=== PATIENT | male | born 1990 | race Two or more races ===

== ENCOUNTER 2019-08-14 11:30 | Inpatient (IN) | payer OTHER ==
--- NOTE | 2019-08-14 12:43 | BHS.RME ---
Substance Use & Tx History - Substance Use History Heroin Substance amount: 7-8 bags Frequency of use: Daily Substance route: Inhalation (ex: sniffing or snorting) Date of Last Use: 08/13/19 (First use age 22 y. OD x 1 3 mos ago, Has narcan at home) Cocaine- Powder Substance amount: $40 Frequency of use: More than 3 times per week Substance route: Inhalation (ex: sniffing or snorting), Smoking Date of Last Use: 08/12/19 (First use age 18 y) Nicotine Substance amount: 1/2 pack Frequency of use: Daily Substance route: Smoking Date of Last Use: 08/14/19 (First use age 14 y) - Last Treatment Date of last treatment: June 2019 [facility] Treatment type: Substance Use Disorder (JOSE G) Physical/Psych/Mental Status - Behavior General Behavior: Increased activity (restlessness, agitation) Eye Contact: Normal - Cooperativeness Cooperativeness: Cooperative - Thinking Thought Processes: Tight Thought content: Future oriented - Physical Health Problems Is patient presently having any pain?: No Does patient presently have any injuries (include location): No Does patient currently have a fever: No COWS - Scale Resting Pulse: 0= [place] 80 or Below Sweatin=Flushed/Facial Moisture Restless Observation: 1= Difficult to Sit Still Pupil Size: 1= Pupils >than Normal Bone or Joint Aches: 1= Mild Discomfort Runny Nose/ Eye Tearin= Nasal Congestion GI Upset > 30mins: 1= Stomach Cramp Tremor Observation: 0= None Yawning Observation: 0= None Anxiety or Irritability: 0= None Goose Flesh Skin: 0=Smooth Skin COWS Score: 7
--- NOTE | 2019-08-14 14:07 | HP ---
COWS - Scale Resting Pulse: 0= [place] 80 or Below Sweatin=Flushed/Facial Moisture Restless Observation: 1= Difficult to Sit Still Pupil Size: 1= Pupils >than Normal Bone or Joint Aches: 2= Severe Diffuse Aches Runny Nose/ Eye Tearin= Runny Nose/Eyes GI Upset > 30mins: 1= Stomach Cramp Tremor Observation: 0= None Yawning Observation: 1= 1-2x During Session Anxiety or Irritability: 2=Irritable/Anxious Goose Flesh Skin: 0=Smooth Skin COWS Score: 12 CIWA Score - Admission Criteria OASAS Guidelines: Admission for Medically Managed Detox: Requires at least one of the followin. CIWA greater than 12 2. Seizures within the past 24 hours 3. Delirium tremens within the past 24 hours 4. Hallucinations within the past 24 hours 5. Acute intervention needed for co occurring medical disorder 6. Acute intervention needed for co occurring psychiatric disorder 7. Severe withdrawal that cannot be handled at a lower level of care (continued vomiting, continued diarrhea, abnormal vital signs) requiring intravenous medication and/or fluids 8. Admitting History and Physical - Primary Care Physician PCP: Dr. Gaurav Finch - Admission Chief Complaint: I am here for detox and try to get clean. I am tired and want to stop History of Present Illness: Pt is a 29yr old male first time in our facility coming in for detox for treatment. History Source: Patient Limitations to Obtaining History: No Limitations - Past Surgical History Past Surgical History: Yes: None - Smoking History Smoking history: Current every day smoker Have you smoked in the past 12 months: Yes Aproximately how many cigarettes per day: 10 - Alcohol/Substance Use Hx Alcohol Use: No History of Substance Use: reports: Cocaine, Heroin Date of Last Use: 08/13/19 - Social History Usual Living Arrangement: Yes: With Parent Do you think of yourself as: Straight/Heterosexual ADL: Independent History of Recent Travel: No Admission ROS BHS - HPI Chief Complaint: I am here for detox and try to get clean. I am tired and want to stop Allergies/Adverse Reactions: Allergies Allergy/AdvReac Type Severity Reaction Status Date / Time No Known Allergies Allergy Verified 08/14/19 14:02 History of Present Illness: Pt is a 29yr old male with a history of heroin and cocaine dependence seeking detox for treatment. Exam Limitations: No Limitations - Ebola screening Have you traveled outside of the country in the last 21 days: No Have you had contact with anyone from an Ebola affected area: No Have you been sick,other than usual withdrawal symptoms: No Do you have a fever: No - Review of Systems Constitutional: Chills, Diaphoresis, Loss of Appetite, Night Sweats, Changes in sleep, Unintentional Wgt. Loss EENT: reports: Nose Congestion Respiratory: reports: No Symptoms reported Cardiac: reports: No Symptoms Reported GI: reports: Poor Appetite, Poor Fluid Intake : reports: No Symptoms Reported Musculoskeletal: reports: Back Pain, Muscle Pain Integumentary: reports: Sweating Neuro: reports: Tingling, Tremors Endocrine: reports: Excessive Sweating, Flushing, Intolerance to Cold, Intolerance to Heat Hematology: reports: No Symptoms Reported Psychiatric: reports: Judgement Intact, Mood/Affect Appropiate, Orientated x3, Agitated, Anxious Other Systems: Reviewed and Negative Patient History - Patient Medical History Hx Anemia: No Hx Asthma: No Hx Chronic Obstructive Pulmonary Disease (COPD): No Hx Cancer: No Hx Cardiac Disorders: No Hx Congestive Heart Failure: No Hx Hypertension: No Hx Hypercholesterolemia: No Hx Pacemaker: No HX Cerebrovascular Accident: No Hx Seizures: No Hx Dementia: No Hx Diabetes: No Hx Gastrointestinal Disorders: No Hx Liver Disease: No Hx Genitourinary Disorders: No Hx Sexually Transmitted Disorders: No Hx Renal Disease (ESRD): No Hx Thyroid Disease: No Hx Human Immunodeficiency Virus (HIV): No (pt states he is negative) Hx Hepatitis C: No Hx Depression: No Hx Suicide Attempt: No (pt denies) Hx Bipolar Disorder: No Hx Schizophrenia: No - Patient Surgical History Hx Orthopedic Surgery: Yes (metal plate to right hand 2003) - PPD History Previous Implant?: Yes Documented Results: Negative w/o proof Implanted On Prior [facility] Admission?: No PPD to be Administered?: Yes - Reproductive History Patient is a Female of Child Bearing Age (11 -55 yrs old): No - Smoking Cessation Smoking history: Current every day smoker Have you smoked in the past 12 months: Yes Aproximately how many cigarettes per day: 10 Hx Chewing Tobacco Use: No Initiated information on smoking cessation: Yes 'Breaking Loose' booklet given: 08/14/19 - Substance & Tx. History Hx Alcohol Use: No Hx Substance Use: Yes Substance Use Type: Cocaine, Heroin Hx Substance Use Treatment: Yes ([facility] 1month ago) - Substances abused Heroin Substance route: Inhalation Frequency: Daily Amount used: 8 bags Age of first use: 22 Date of last use: 08/13/19 Cocaine Substance route: Inhalation Frequency: Daily Amount used: 50 dollars Age of first use: 18 Date of last use: 08/12/19 Admission Physical Exam [facility] - Physical General Appearance: Yes: Appropriately Dressed, Moderate Distress, Tremorous, Irritable, Sweating, Anxious HEENTM: Yes: Normal Voice, Nasal Congestion, Rhinorrhea Respiratory: Yes: Lungs Clear, Normal Breath Sounds, No Respiratory Distress Neck: Yes: No masses,lesions,Nodules Breast: Yes: Within Normal Limits Cardiology: Yes: Within Normal Limits, Regular Rhythm, Regular Rate, S1, S2 Abdominal: Yes: Normal Bowel Sounds, Non Tender Genitourinary: Yes: Within Normal Limits Back: Yes: Normal Inspection Musculoskeletal: Yes: full range of Motion, Back pain Extremities: Yes: Normal Capillary Refill, Normal Inspection, Non-Tender, Tremors Neurological: Yes: Fully Oriented, Alert, Normal Response Integumentary: Yes: Normal Color - Diagnostic (1) Opioid dependence with withdrawal Current Visit: Yes Status: Chronic (2) Nicotine dependence Current Visit: Yes Status: Chronic Qualifiers: Nicotine product type: cigarettes Substance use status: uncomplicated Qualified Code(s): F17.210 - Nicotine dependence, cigarettes, uncomplicated (3) Cocaine dependence Current Visit: Yes Status: Chronic Qualifiers: Substance use status: uncomplicated Qualified Code(s): F14.20 - Cocaine dependence, uncomplicated Cleared for Admission [facility] - Detox or Rehab [facility] Level of Care: Medically Managed Detox Regimen/Protocol: Methadone Claeared for Rehab Admission: No Breathalyzer - Breathalyzer Breathalyzer: 0 Urine Drug Screen - Test Device Lot number: [id number] Expiration date: 10/18/20 - Control Is test valid?: Yes - Results Drug screen NEGATIVE: No Urine drug screen results: JEFFERY-Cocaine, FEN-Fentanyl, MOP-Opiates, MTD-Methadone Inpatient Rehab Admission - Rehab Decision to Admit Inpatient rehab admission?: No
[2019-08-14] MEDS ORDERED: METHOCARBAMOL 500 MG TABLET PO PRN (14:20)
[2019-08-14] MEDS ORDERED: MAGNESIUM HYDROX 2400MG/30ML ORAL SUSPENSION 30 ML CUP PO PRN (14:20)
[2019-08-14] MEDS ORDERED: IBUPROFEN 400 MG TABLET (FP) PO PRN (14:20)
[2019-08-14] MEDS ORDERED: P-EPHED 60MG/TRIPROLIDI 2.5MG TABLET PO PRN (14:20)
[2019-08-14] MEDS ORDERED: MENTHOL/PHENOL 1 EACH UD MM PRN (14:20)
[2019-08-14] MEDS ORDERED: MAGNESIUM CITRATE 300 ML BOTTLE PO PRN (14:20)
[2019-08-14] MEDS ORDERED: ONDANSETRON *ODT* 4 MG TABLET SL PRN (14:20)
[2019-08-14] MEDS ORDERED: METHADONE HCL 10 MG TABLET (FOR DETOX USE ONLY) PO ONE (14:20)
[2019-08-14] MEDS ORDERED: ACETAMINOPHEN 325 MG TABLET (FP) PO PRN ×2 (14:20)
[2019-08-14] MEDS ORDERED: MAG HYDROX/AL HYDROX/SIMETH 30 ML UNIT-DOSE CUP PO PRN (14:20)
[2019-08-14] MEDS ORDERED: cloNIDine HCL 0.1 MG TABLET PO PRN (14:20)
[2019-08-14] MEDS ORDERED: hydrOXYzine PAMOATE 25 MG CAPSULE (FP) PO PRN (14:20)
[2019-08-14] MEDS ORDERED: NICOTINE POLACRILEX 2 MG GUM BUC PRN (14:20)
[2019-08-14] MEDS ORDERED: BISMUTH SUBSALICYLATE 262 MG/15 ML BTL PO PRN (14:29)
[2019-08-14 17:03] LABS: HEMATOCRIT 40.1 % (35.4-49); HEMOGLOBIN 13.1 GM/dL (11.7-16.9); MCH 28.1 pg (25.7-33.7); MCHC 32.8 g/dl (32.0-35.9); MEAN CELL VOLUME 85.6 fl (80-96); MEAN PLT VOLUME 11.2 fl (7.5-11.1); PLATELET COUNT 238 K/MM3 (134-434); RBC 4.68 M/mm3 (4.00-5.60); RDW 14.2 % (11.9-15.9); WHITE BLOOD COUNT 6.8 K/mm3 (4.0-10.0)
[2019-08-14 17:17] LABS: ALBUMIN 3.8 g/dl (3.4-5.0); BILIRUBIN,TOTAL 0.6 mg/dL (0.2-1); BLOOD UREA NITROGEN 15.3 mg/dL (7-18); CALCIUM 9.1 mg/dL (8.5-10.1); CREATININE 0.8 mg/dL (0.55-1.3); POTASSIUM 4.2 mmol/L (3.5-5.1); TOT PROT 7.5 g/dl (6.4-8.2)
[2019-08-14] MEDS: THIAMINE HCL 100 MG TABLET (FP) PO SCH (22:21)
[2019-08-14] MEDS: MELATONIN 5 MG TABLETS PO SCH ×3 (22:21→22:38)
[2019-08-15] MEDS ORDERED: METHADONE HCL 10 MG TABLET (FOR DETOX USE ONLY) ONE (08:37)
[2019-08-15] MEDS ORDERED: METHADONE HCL 5 MG TABLET (FOR DETOX USE ONLY) ONE (08:38)
[2019-08-15] MEDS ORDERED: METHADONE (DETOX) 20 MG, METHADONE (DETOX) 5 MG PO ONE (10:00)
[2019-08-15] MEDS: PRENATAL VITAMINS W/ FOLIC ACID TABLET (FP) PO SCH (10:22)
--- NOTE | 2019-08-15 10:43 | PN ---
S COWS - Scale Resting Pulse: 0= [place] 80 or Below Sweatin= Beads of Sweat on Face Restless Observation: 1= Difficult to Sit Still Pupil Size: 0= Normal to Room Light Bone or Joint Aches: 2= Severe Diffuse Aches Runny Nose/ Eye Tearin= None GI Upset > 30mins: 0= None Tremor Observation of Outstretched Hands: 0= None Yawning Observation: 1= 1-2x During Session Anxiety or Irritability: 2=Irritable/Anxious Goose Flesh Skin: 0=Smooth Skin COWS Score: 9 S Progress Note (SOAP) Subjective: c/o anxiety, irritability, sweats, and muscle aches. Objective: 08/15/19 10:42 Vital Signs 08/15/19 08/15/19 08/15/19 03:30 06:09 09:08 Temperature 97.5 F L 97.7 F Pulse Rate 60 76 Respiratory 18 18 18 Rate Blood Pressure 104/57 L 100/51 L O2 Sat by Pulse 98 Oximetry (%) Laboratory Last Values WBC 6.8 K/mm3 (4.0-10.0) 08/14/19 14:35 RBC 4.68 M/mm3 (4.00-5.60) 08/14/19 14:35 Hgb 13.1 GM/dL (11.7-16.9) 08/14/19 14:35 Hct 40.1 % (35.4-49) 08/14/19 14:35 MCV 85.6 fl (80-96) 08/14/19 14:35 MCH 28.1 pg (25.7-33.7) 08/14/19 14:35 MCHC 32.8 g/dl (32.0-35.9) 08/14/19 14:35 RDW 14.2 % (11.9-15.9) 08/14/19 14:35 Plt Count 238 K/MM3 (134-434) 08/14/19 14:35 MPV 11.2 fl (7.5-11.1) H 08/14/19 14:35 Sodium 136 mmol/L (136-145) 08/14/19 14:35 Potassium 4.2 mmol/L (3.5-5.1) 08/14/19 14:35 Chloride 100 mmol/L (98-107) 08/14/19 14:35 Carbon Dioxide 29 mmol/L (21-32) 08/14/19 14:35 Anion Gap 7 MMOL/L (8-16) L 08/14/19 14:35 BUN 15.3 mg/dL (7-18) 08/14/19 14:35 Creatinine 0.8 mg/dL (0.55-1.3) 08/14/19 14:35 Est GFR (CKD-EPI)AfAm 137.96 08/14/19 14:35 Est GFR (CKD-EPI)NonAf 119.03 08/14/19 14:35 Random Glucose 85 mg/dL (74-106) 08/14/19 14:35 Calcium 9.1 mg/dL (8.5-10.1) 08/14/19 14:35 Total Bilirubin 0.6 mg/dL (0.2-1) 08/14/19 14:35 AST 17 U/L (15-37) 08/14/19 14:35 ALT 22 U/L (13-61) 08/14/19 14:35 Alkaline Phosphatase 73 U/L (45-117) 08/14/19 14:35 Total Protein 7.5 g/dl (6.4-8.2) 08/14/19 14:35 Albumin 3.8 g/dl (3.4-5.0) 08/14/19 14:35 Syphilis Serology Non-reactive (NONREACTIVE) 08/14/19 14:35 Labs noted. Assessment: 08/15/19 10:42 AOX3, in no acute respiratory distress. Full ROM, ambulating in the unit. Withdrawal symptoms. Plan: continue detox. Increase hydration.
--- NOTE | 2019-08-15 14:02 | EKG ---
Test Reason : Blood Pressure : / mmHG Vent. Rate : 062 BPM Atrial Rate : 062 BPM P-R Int : 150 ms QRS Dur : 088 ms QT Int : 406 ms P-R-T Axes : 005 095 030 degrees QTc Int : 412 ms NORMAL SINUS RHYTHM RIGHTWARD AXIS BORDERLINE ECG NO PREVIOUS ECGS AVAILABLE Confirmed by MD TERE, KRISSY ([id number]) on 08/15/2019 2:02:22 PM Referred By: Confirmed By:KRISSY CARRANZA MD
[2019-08-15] MEDS: THIAMINE HCL 100 MG TABLET (FP) PO SCH ×2 (22:10→22:27)
[2019-08-15] MEDS: MELATONIN 5 MG TABLETS PO SCH ×2 (22:10→22:27)
[2019-08-15] MEDS: diazePAM 5 MG TABLET PO PRN (23:09)
--- NOTE | 2019-08-16 08:58 | PN ---
BHS COWS - Scale Resting Pulse: 1= [place] 81-100 Sweatin= Chills/Flushing Restless Observation: 0= Sits Still Pupil Size: 1= Pupils >than Normal Bone or Joint Aches: 1= Mild Discomfort Runny Nose/ Eye Tearin= None GI Upset > 30mins: 0= None Tremor Observation of Outstretched Hands: 1= Tremor [place], Not Seen Yawning Observation: 0= None Anxiety or Irritability: 1=Feels Anxious/Irritable Goose Flesh Skin: 0=Smooth Skin COWS Score: 6 BHS Progress Note (SOAP) Subjective: 29 years old male admitted on 08/14/19 for opiate withdrawal sx management treating with methadone detox regiment feeling ok today discussing medication assisted treatment program for opiate recovery as well as picking up narcan from pharmacy upon discharge Objective: 08/16/19 08:58 Vital Signs - 24 hr 08/15/19 08/15/19 08/15/19 09:08 12:40 16:41 Temperature 97.7 F 96.8 F L 97.8 F Pulse Rate 76 71 65 Respiratory 18 18 18 Rate Blood Pressure 100/51 L 116/69 108/66 O2 Sat by Pulse 98 Oximetry (%) 08/15/19 08/16/19 08/16/19 20:50 00:30 03:30 Temperature 97.8 F Pulse Rate 70 Respiratory 16 18 18 Rate Blood Pressure 103/63 O2 Sat by Pulse 99 Oximetry (%) 08/16/19 06:18 Temperature 97.7 F Pulse Rate 83 Respiratory 18 Rate Blood Pressure 98/52 L O2 Sat by Pulse 97 Oximetry (%) vital signs noted low bp increase ensure to tid daily Laboratory Tests 08/14/19 08/14/19 08/14/19 14:35 14:35 14:35 WBC 6.8 RBC 4.68 Hgb 13.1 Hct 40.1 MCV 85.6 MCH 28.1 MCHC 32.8 RDW 14.2 Plt Count 238 MPV 11.2 H Sodium 136 Potassium 4.2 Chloride 100 Carbon Dioxide 29 Anion Gap 7 L BUN 15.3 Creatinine 0.8 Est GFR (CKD-EPI)AfAm 137.96 Est GFR (CKD-EPI)NonAf 119.03 Random Glucose 85 Calcium 9.1 Total Bilirubin 0.6 AST 17 ALT 22 Alkaline Phosphatase 73 Total Protein 7.5 Albumin 3.8 Syphilis Serology Non-reactive COVID-19 (JUANI) 08/14/19 15:30 WBC RBC Hgb Hct MCV MCH MCHC RDW Plt Count MPV Sodium Potassium Chloride Carbon Dioxide Anion Gap BUN Creatinine Est GFR (CKD-EPI)AfAm Est GFR (CKD-EPI)NonAf Random Glucose Calcium Total Bilirubin AST ALT Alkaline Phosphatase Total Protein Albumin Syphilis Serology COVID-19 (JUANI) Not detected lab noted Assessment: 08/16/19 08:59 opiate withdrawal 08/16/19 08:59 nicotine replacement as cigarettes cessation strategy Plan: methadone detox regiment understanding the consequences of nicotine
[2019-08-16] MEDS ORDERED: METHADONE HCL 10 MG TABLET (FOR DETOX USE ONLY) PO ONE (10:00)
[2019-08-16] MEDS: PRENATAL VITAMINS W/ FOLIC ACID TABLET (FP) PO SCH (10:08)
[2019-08-16] MEDS: diazePAM 5 MG TABLET PO PRN (13:06)
[2019-08-16] MEDS: MELATONIN 5 MG TABLETS PO SCH (22:22)
[2019-08-16] MEDS: THIAMINE HCL 100 MG TABLET (FP) PO SCH (22:22)
[2019-08-17] MEDS: diazePAM 5 MG TABLET PO PRN ×2 (06:37→13:54)
[2019-08-17] MEDS ORDERED: METHADONE HCL 5 MG TABLET (FOR DETOX USE ONLY) ONE (08:55)
[2019-08-17] MEDS ORDERED: METHADONE HCL 10 MG TABLET (FOR DETOX USE ONLY) ONE (08:55)
[2019-08-17] MEDS ORDERED: METHADONE (DETOX) 10 MG, METHADONE (DETOX) 5 MG PO ONE (10:00)
[2019-08-17] MEDS: PRENATAL VITAMINS W/ FOLIC ACID TABLET (FP) PO SCH (10:04)
--- NOTE | 2019-08-17 10:47 | PN ---
S COWS - Scale Resting Pulse: 0= [place] 80 or Below Sweatin= No chills or Flushing Restless Observation: 1= Difficult to Sit Still Pupil Size: 1= Pupils >than Normal Bone or Joint Aches: 2= Severe Diffuse Aches Runny Nose/ Eye Tearin= Nasal Congestion GI Upset > 30mins: 1= Stomach Cramp Tremor Observation of Outstretched Hands: 2= Slight Tremor Visible Yawning Observation: 1= 1-2x During Session Anxiety or Irritability: 2=Irritable/Anxious Goose Flesh Skin: 0=Smooth Skin COWS Score: 11 [facility] Progress Note (SOAP) Subjective: alert,irritable,anxious,interrupted sleep,pain in the body and back,nausea Objective: 08/17/19 10:49 Vital Signs Temperature 97.5 F L 08/17/19 08:52 Pulse Rate 75 08/17/19 08:52 Respiratory Rate 16 08/17/19 08:52 Blood Pressure 98/59 L 08/17/19 08:52 O2 Sat by Pulse Oximetry (%) 99 08/17/19 06:01 Laboratory Last Values WBC 6.8 K/mm3 (4.0-10.0) 08/14/19 14:35 RBC 4.68 M/mm3 (4.00-5.60) 08/14/19 14:35 Hgb 13.1 GM/dL (11.7-16.9) 08/14/19 14:35 Hct 40.1 % (35.4-49) 08/14/19 14:35 MCV 85.6 fl (80-96) 08/14/19 14:35 MCH 28.1 pg (25.7-33.7) 08/14/19 14:35 MCHC 32.8 g/dl (32.0-35.9) 08/14/19 14:35 RDW 14.2 % (11.9-15.9) 08/14/19 14:35 Plt Count 238 K/MM3 (134-434) 08/14/19 14:35 MPV 11.2 fl (7.5-11.1) H 08/14/19 14:35 Sodium 136 mmol/L (136-145) 08/14/19 14:35 Potassium 4.2 mmol/L (3.5-5.1) 08/14/19 14:35 Chloride 100 mmol/L (98-107) 08/14/19 14:35 Carbon Dioxide 29 mmol/L (21-32) 08/14/19 14:35 Anion Gap 7 MMOL/L (8-16) L 08/14/19 14:35 BUN 15.3 mg/dL (7-18) 08/14/19 14:35 Creatinine 0.8 mg/dL (0.55-1.3) 08/14/19 14:35 Est GFR (CKD-EPI)AfAm 137.96 08/14/19 14:35 Est GFR (CKD-EPI)NonAf 119.03 08/14/19 14:35 Random Glucose 85 mg/dL (74-106) 08/14/19 14:35 Calcium 9.1 mg/dL (8.5-10.1) 08/14/19 14:35 Total Bilirubin 0.6 mg/dL (0.2-1) 08/14/19 14:35 AST 17 U/L (15-37) 08/14/19 14:35 ALT 22 U/L (13-61) 08/14/19 14:35 Alkaline Phosphatase 73 U/L (45-117) 08/14/19 14:35 Total Protein 7.5 g/dl (6.4-8.2) 08/14/19 14:35 Albumin 3.8 g/dl (3.4-5.0) 08/14/19 14:35 Syphilis Serology Non-reactive (NONREACTIVE) 08/14/19 14:35 COVID-19 (JUANI) Not detected 08/14/19 15:30 Assessment: 08/17/19 10:49 withdrawal signs and symptom Plan: continue detox methadone regimen
[2019-08-17] MEDS: THIAMINE HCL 100 MG TABLET (FP) PO SCH (21:31)
[2019-08-17] MEDS: MELATONIN 5 MG TABLETS PO SCH (21:31)
[2019-08-18] MEDS: PRENATAL VITAMINS W/ FOLIC ACID TABLET (FP) PO SCH (09:58)
[2019-08-18] MEDS ORDERED: METHADONE HCL 10 MG TABLET (FOR DETOX USE ONLY) PO ONE (10:00)
--- NOTE | 2019-08-18 10:15 | PN ---
BHS COWS - Scale Resting Pulse: 0= [place] 80 or Below Sweatin= No chills or Flushing Restless Observation: 0= Sits Still Pupil Size: 0= Normal to Room Light Bone or Joint Aches: 1= Mild Discomfort Runny Nose/ Eye Tearin= Nasal Congestion GI Upset > 30mins: 1= Stomach Cramp Tremor Observation of Outstretched Hands: 1= Tremor [place], Not Seen Yawning Observation: 0= None Anxiety or Irritability: 2=Irritable/Anxious Goose Flesh Skin: 0=Smooth Skin COWS Score: 6 BHS Progress Note (SOAP) Subjective: alert,irritable,anxious,interrupted sleep,pain in the body Objective: 08/18/19 10:14 Vital Signs Temperature 96.2 F L 08/18/19 08:35 Pulse Rate 76 08/18/19 08:35 Respiratory Rate 18 08/18/19 08:35 Blood Pressure 105/61 08/18/19 08:35 O2 Sat by Pulse Oximetry (%) 96 08/18/19 05:59 Assessment: 08/18/19 10:14 withdrawal symptom Plan: continue detox methadone regimen,discharge in am
[2019-08-18 16:56] VITALS: BP 114/70; PULSE 75; TEMP 97.1
--- NOTE | 2019-08-18 18:53 | DS ---
[facility] Detox Discharge Summary Admission Date: 08/14/19 - History Additional Comments: pt insists on leaving today , states he has a ride to pick him up from [place] and go to [place] . Planning to go to [facility] after care . States he is not interested in completing detox , has Methadone 5 mg scheduled for a.m. Pt was educated about risks of leaving AMA including OD / . reports he has Narcan at home and knows how to use it . States he has his own PCP . - Physical Exam Results Vital Signs: Vital Signs Temperature 97.1 F L 08/18/19 16:28 Pulse Rate 75 08/18/19 16:28 Respiratory Rate 18 08/18/19 16:28 Blood Pressure 114/70 08/18/19 16:28 O2 Sat by Pulse Oximetry (%) 98 08/18/19 12:36 - Medication Discharge Medications: Ambulatory Orders Naloxone HCl [Narcan] 4 mg NS ASDIR PRN #1 spray 08/16/19 - AMA Did Patient Leave Against Medical Advice: Yes
[2019-08-19] MEDS ORDERED: METHADONE HCL 5 MG TABLET (FOR DETOX USE ONLY) PO ONE (06:00)
== END 2019-08-18 18:48 | disposition left against medical advice (07) | DRG 770 ==
LOC: YASAS 11:30 → Y3N 15:34
PROVIDERS: ADMIT Allergy & Immunology; ATTEND Allergy & Immunology
PROC: HZ2ZZZZ Detoxification Services for Substance Abuse Treatment (ICD-10-PCS; principal; 2019-08-14)
DX: F11.23 Opioid dependence with withdrawal (principal); F14.20 Cocaine dependence, uncomplicated; F17.210 Nicotine dependence, cigarettes, uncomplicated
CPT/HCPCS: 36415; 80053; 85027; 86780; 93005; 93010; U0003

== ENCOUNTER 2019-09-15 13:55 | Inpatient (IN) | payer OTHER ==
--- NOTE | 2019-09-15 14:03 | BHS.RME ---
Substance Use & Tx History - Substance Use History Heroin Substance amount: 6-10 bags Frequency of use: Daily Substance route: Smoking Date of Last Use: 09/15/19 (First use age 20 y. OD 5 mos ago. Has Narcan at home) Nicotine Substance amount: 5-6 cigs Frequency of use: Daily Substance route: Smoking Date of Last Use: 09/15/19 (Began age 12 y) Physical/Psych/Mental Status - Behavior General Behavior: Increased activity (restlessness, agitation) Eye Contact: Normal - Cooperativeness Cooperativeness: Cooperative - Thinking Thought Processes: Tight Thought content: Future oriented - Physical Health Problems Is patient presently having any pain?: No Does patient presently have any injuries (include location): No Does patient currently have a fever: No COWS - Scale Resting Pulse: 0= [place] 80 or Below Sweatin= Chills/Flushing Restless Observation: 1= Difficult to Sit Still Pupil Size: 0= Normal to Room Light Bone or Joint Aches: 0= None Runny Nose/ Eye Tearin= Runny Nose/Eyes GI Upset > 30mins: 1= Stomach Cramp Tremor Observation: 0= None Yawning Observation: 0= None Anxiety or Irritability: 1=Feels Anxious/Irritable Goose Flesh Skin: 0=Smooth Skin COWS Score: 6
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
[2019-09-15] MEDS ORDERED: IBUPROFEN 400 MG TABLET (FP) PO PRN (15:26)
[2019-09-15] MEDS ORDERED: ACETAMINOPHEN 325 MG TABLET (FP) PO PRN ×2 (15:26)
[2019-09-15] MEDS ORDERED: MAGNESIUM CITRATE 300 ML BOTTLE PO PRN (15:26)
[2019-09-15] MEDS ORDERED: METHADONE HCL 10 MG TABLET (FOR DETOX USE ONLY) PO ONE (15:26)
[2019-09-15] MEDS ORDERED: METHOCARBAMOL 500 MG TABLET PO PRN (15:26)
[2019-09-15] MEDS ORDERED: MAG HYDROX/AL HYDROX/SIMETH 30 ML UNIT-DOSE CUP PO PRN (15:26)
[2019-09-15] MEDS ORDERED: NICOTINE POLACRILEX 2 MG GUM BUC PRN (15:26)
[2019-09-15] MEDS ORDERED: MENTHOL/PHENOL 1 EACH UD MM PRN (15:26)
[2019-09-15] MEDS ORDERED: MAGNESIUM HYDROX 2400MG/30ML ORAL SUSPENSION 30 ML CUP PO PRN (15:26)
[2019-09-15] MEDS ORDERED: BISMUTH SUBSALICYLATE 262 MG/15 ML BTL PO PRN (15:26)
[2019-09-15] MEDS ORDERED: ONDANSETRON *ODT* 4 MG TABLET SL PRN (15:26)
[2019-09-15] MEDS ORDERED: cloNIDine HCL 0.1 MG TABLET PO PRN (15:26)
[2019-09-15 15:49] VITALS: BMI 19.6
[2019-09-15 17:19] LABS: BILIRUBIN,TOTAL 0.4 mg/dL (0.2-1); BLOOD UREA NITROGEN 13.3 mg/dL (7-18); CREATININE 0.9 mg/dL (0.55-1.3); POTASSIUM 3.7 mmol/L (3.5-5.1); TOT PROT 7.6 g/dl (6.4-8.2)
[2019-09-15 17:20] LABS: HEMATOCRIT 41.3 % (35.4-49); HEMOGLOBIN 13.4 GM/dL (11.7-16.9); MCHC 32.4 g/dl (32.0-35.9); MEAN CELL VOLUME 86.2 fl (80-96); MEAN PLT VOLUME 11.4 fl (7.5-11.1); PLATELET COUNT 183 K/MM3 (134-434); RBC 4.79 M/mm3 (4.00-5.60); RDW 14.7 % (11.9-15.9); WHITE BLOOD COUNT 10.2 K/mm3 (4.0-10.0)
[2019-09-15] MEDS: hydrOXYzine PAMOATE 25 MG CAPSULE (FP) PO SCH ×2 (19:01→22:25)
[2019-09-15] MEDS: THIAMINE HCL 100 MG TABLET (FP) PO SCH (22:25)
[2019-09-15] MEDS: MELATONIN 5 MG TABLETS PO SCH (22:25)
[2019-09-16] MEDS: hydrOXYzine PAMOATE 25 MG CAPSULE (FP) PO SCH ×2 (07:01→10:13)
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
--- NOTE | 2019-09-16 08:54 | PN ---
BHS COWS - Scale Resting Pulse: 0= DE 80 or Below Sweatin= Chills/Flushing Restless Observation: 3= Extraneous Movement Pupil Size: 0= Normal to Room Light Bone or Joint Aches: 4=Acute Joint/Muscle Pain Runny Nose/ Eye Tearin= None GI Upset > 30mins: 1= Stomach Cramp Tremor Observation of Outstretched Hands: 1= Tremor [place], Not Seen Yawning Observation: 0= None Anxiety or Irritability: 2=Irritable/Anxious Goose Flesh Skin: 0=Smooth Skin COWS Score: 12 BHS Progress Note (SOAP) Subjective: Pt is a 31 y/o male admitted to detox for opiate withdrawal sx. c/o anxiety cold sweats leg aches/muscle cramps low appetite Objective: 09/16/19 08:54 Vital Signs - 24 hr 09/15/19 09/15/19 09/15/19 15:46 16:05 18:03 Temperature 98.2 F 97.7 F Pulse Rate 81 74 Respiratory 18 18 Rate Blood Pressure 107/65 123/77 O2 Sat by Pulse 98 Oximetry (%) 09/15/19 09/16/19 20:37 05:49 Temperature 98.4 F 98.2 F Pulse Rate 77 65 Respiratory 18 18 Rate Blood Pressure 126/71 109/66 O2 Sat by Pulse 96 93 L Oximetry (%) Laboratory Tests 09/15/19 09/15/19 09/15/19 15:30 15:30 15:30 WBC 10.2 H RBC 4.79 Hgb 13.4 Hct 41.3 MCV 86.2 MCH 28.0 MCHC 32.4 RDW 14.7 Plt Count 183 D MPV 11.4 H Sodium 138 Potassium 3.7 Chloride 101 Carbon Dioxide 30 Anion Gap 7 L BUN 13.3 Creatinine 0.9 Est GFR (CKD-EPI)AfAm 131.44 Est GFR (CKD-EPI)NonAf 113.41 Random Glucose 105 Calcium 9.0 Total Bilirubin 0.4 AST 13 L ALT 20 Alkaline Phosphatase 61 Total Protein 7.6 Albumin 4.0 Syphilis Serology Non-reactive covid-19 result pending alert o x 3 nad oob ambulating with steady gait Assessment: 09/16/19 11:24 withdrawal sx Plan: cont detox increase po fluids maintain safety Ensure plus po 1 can po tid-BMI 19.7 kg/m2 Valium 10 mg po Q4H prn for anxiety/withdrawal sx x 3 days
[2019-09-16] MEDS ORDERED: METHADONE HCL 10 MG TABLET (FOR DETOX USE ONLY) ONE (09:14)
[2019-09-16] MEDS ORDERED: METHADONE HCL 5 MG TABLET (FOR DETOX USE ONLY) ONE (09:15)
--- NOTE | 2019-09-16 09:16 | EKG ---
Test Reason : Blood Pressure : / mmHG Vent. Rate : 066 BPM Atrial Rate : 066 BPM P-R Int : 152 ms QRS Dur : 098 ms QT Int : 392 ms P-R-T Axes : 048 086 038 degrees QTc Int : 410 ms NORMAL SINUS RHYTHM NORMAL ECG WHEN COMPARED WITH ECG OF 14-AUG-2019 13:19, NO SIGNIFICANT CHANGE WAS FOUND Confirmed by MD JEZ, COURTNEY ([id number]) on 09/16/2019 9:16:41 AM Referred By: Confirmed By:COURTNEY STORY MD
[2019-09-16] MEDS ORDERED: METHADONE (DETOX) 20 MG, METHADONE (DETOX) 5 MG PO ONE (10:00)
[2019-09-16] MEDS: PRENATAL VITAMINS W/ FOLIC ACID TABLET (FP) PO SCH (10:13)
[2019-09-16] MEDS: NICOTINE 7 MG/24 HOURS TOPICAL PATCH TD SCH (10:13)
[2019-09-16] MEDS ORDERED: hydrOXYzine PAMOATE 25 MG CAPSULE (FP) PO PRN (11:20)
[2019-09-16 17:10] LABS: PH,URINE >= 9.0 (5.0-8.0); URINE APPEARANCE TURBID; URINE BILIRUBIN NEGATIVE (NEGATIVE); URINE COLOR YELLOW; URINE GLUCOSE (UA) NEGATIVE (NEGATIVE); URINE KETONE NEGATIVE (NEGATIVE); URINE LEUK ESTERASE NEGATIVE (NEGATIVE); URINE NITRITE NEGATIVE (NEGATIVE); URINE PROTEIN TRACE (NEGATIVE); URINE UROBILINOGEN 0.2 mg/dL (0.2-1.0)
[2019-09-16] MEDS: diazePAM 5 MG TABLET PO PRN (20:29)
[2019-09-16] MEDS: THIAMINE HCL 100 MG TABLET (FP) PO SCH (22:49)
[2019-09-16] MEDS: MELATONIN 5 MG TABLETS PO SCH (22:49)
[2019-09-17] MEDS ORDERED: METHADONE HCL 10 MG TABLET (FOR DETOX USE ONLY) PO ONE (10:00)
[2019-09-17] MEDS: NICOTINE 7 MG/24 HOURS TOPICAL PATCH TD SCH (11:15)
[2019-09-17] MEDS: PRENATAL VITAMINS W/ FOLIC ACID TABLET (FP) PO SCH (11:16)
[2019-09-17] MEDS: diazePAM 5 MG TABLET PO PRN (13:10)
--- NOTE | 2019-09-17 13:57 | PN ---
BHS COWS - Scale Resting Pulse: 0= DE 80 or Below Sweatin=Flushed/Facial Moisture Restless Observation: 0= Sits Still Pupil Size: 0= Normal to Room Light Bone or Joint Aches: 4=Acute Joint/Muscle Pain Runny Nose/ Eye Tearin= None GI Upset > 30mins: 0= None Tremor Observation of Outstretched Hands: 1= Tremor [place], Not Seen Yawning Observation: 0= None Anxiety or Irritability: 0= None Goose Flesh Skin: 0=Smooth Skin COWS Score: 7 BHS Progress Note (SOAP) Subjective: c/o anxiety sweats decreased leg pain/cramps with meds. Objective: 09/17/19 13:56 Vital Signs - 24 hr 09/16/19 09/16/19 09/17/19 16:57 20:23 07:00 Temperature 98.2 F 98.4 F 97.6 F Pulse Rate 64 76 61 Respiratory 18 18 16 Rate Blood Pressure 115/67 112/59 L 98/64 O2 Sat by Pulse 96 96 Oximetry (%) 09/17/19 09:01 Temperature 98.1 F Pulse Rate 68 Respiratory 18 Rate Blood Pressure 113/71 O2 Sat by Pulse Oximetry (%) Laboratory Tests 09/15/19 09/15/19 09/15/19 15:30 15:30 15:30 WBC 10.2 H RBC 4.79 Hgb 13.4 Hct 41.3 MCV 86.2 MCH 28.0 MCHC 32.4 RDW 14.7 Plt Count 183 D MPV 11.4 H Sodium 138 Potassium 3.7 Chloride 101 Carbon Dioxide 30 Anion Gap 7 L BUN 13.3 Creatinine 0.9 Est GFR (CKD-EPI)AfAm 131.44 Est GFR (CKD-EPI)NonAf 113.41 Random Glucose 105 Calcium 9.0 Total Bilirubin 0.4 AST 13 L ALT 20 Alkaline Phosphatase 61 Total Protein 7.6 Albumin 4.0 Urine Color Urine Appearance Urine pH Ur Specific [place] Urine Protein Urine Glucose (UA) Urine Ketones Urine Blood Urine Nitrite Urine Bilirubin Urine Urobilinogen Ur Leukocyte Esterase Syphilis Serology Non-reactive COVID-19 (JUANI) HIV Ag/Ab Combo Qual 09/15/19 09/16/19 09/16/19 15:52 08:00 15:15 WBC RBC Hgb Hct MCV MCH MCHC RDW Plt Count MPV Sodium Potassium Chloride Carbon Dioxide Anion Gap BUN Creatinine Est GFR (CKD-EPI)AfAm Est GFR (CKD-EPI)NonAf Random Glucose Calcium Total Bilirubin AST ALT Alkaline Phosphatase Total Protein Albumin Urine Color Yellow Urine Appearance Turbid Urine pH >= 9.0 H Ur Specific [place] 1.016 Urine Protein Trace Urine Glucose (UA) Negative Urine Ketones Negative Urine Blood Negative Urine Nitrite Negative Urine Bilirubin Negative Urine Urobilinogen 0.2 Ur Leukocyte Esterase Negative Syphilis Serology COVID-19 (JUANI) Not detected HIV Ag/Ab Combo Qual Negative covid-19 not detected alert o x 3 nad oob ambulating with steady gait Assessment: 09/17/19 13:57 withdrawal sx Plan: con detox increase po fluids maintain safety
[2019-09-17] MEDS: MELATONIN 5 MG TABLETS PO SCH (22:57)
[2019-09-17] MEDS: THIAMINE HCL 100 MG TABLET (FP) PO SCH (22:57)
[2019-09-18] MEDS ORDERED: METHADONE HCL 10 MG TABLET (FOR DETOX USE ONLY) ONE (09:35)
[2019-09-18] MEDS ORDERED: METHADONE HCL 5 MG TABLET (FOR DETOX USE ONLY) ONE (09:35)
[2019-09-18] MEDS ORDERED: METHADONE (DETOX) 10 MG, METHADONE (DETOX) 5 MG PO ONE (10:00)
[2019-09-18 10:09] VITALS: BP 116/71; PULSE 68; TEMP 97.5
[2019-09-18] MEDS: PRENATAL VITAMINS W/ FOLIC ACID TABLET (FP) PO SCH (10:47)
[2019-09-18] MEDS: NICOTINE 7 MG/24 HOURS TOPICAL PATCH TD SCH (10:48)
--- NOTE | 2019-09-18 10:54 | PN ---
BHS COWS - Scale Resting Pulse: 0= SD 80 or Below Sweatin= Chills/Flushing Restless Observation: 0= Sits Still Pupil Size: 0= Normal to Room Light Bone or Joint Aches: 1= Mild Discomfort Runny Nose/ Eye Tearin= None GI Upset > 30mins: 0= None Tremor Observation of Outstretched Hands: 1= Tremor [place], Not Seen Yawning Observation: 0= None Anxiety or Irritability: 1=Feels Anxious/Irritable Goose Flesh Skin: 0=Smooth Skin COWS Score: 4 BHS Progress Note (SOAP) Subjective: Pt reports detox proceeding well. Pt seen this morning ambulating on hallways with steady gait. Slight anxiety chills/sweats Objective: 09/18/19 10:52 Vital Signs - 24 hr 09/17/19 09/17/19 09/17/19 13:06 18:39 21:04 Temperature 98.0 F 98.7 F 98.0 F Pulse Rate 75 67 71 Respiratory 16 16 16 Rate Blood Pressure 103/51 L 100/53 L 93/53 L O2 Sat by Pulse 97 98 95 Oximetry (%) 09/18/19 09/18/19 07:00 09:10 Temperature 97.7 F 97.5 F L Pulse Rate 64 68 Respiratory 18 19 Rate Blood Pressure 101/58 L 116/71 O2 Sat by Pulse 95 95 Oximetry (%) Laboratory Tests 09/15/19 09/15/19 09/15/19 15:30 15:30 15:30 WBC 10.2 H RBC 4.79 Hgb 13.4 Hct 41.3 MCV 86.2 MCH 28.0 MCHC 32.4 RDW 14.7 Plt Count 183 D MPV 11.4 H Sodium 138 Potassium 3.7 Chloride 101 Carbon Dioxide 30 Anion Gap 7 L BUN 13.3 Creatinine 0.9 Est GFR (CKD-EPI)AfAm 131.44 Est GFR (CKD-EPI)NonAf 113.41 Random Glucose 105 Calcium 9.0 Total Bilirubin 0.4 AST 13 L ALT 20 Alkaline Phosphatase 61 Total Protein 7.6 Albumin 4.0 Urine Color Urine Appearance Urine pH Ur Specific [place] Urine Protein Urine Glucose (UA) Urine Ketones Urine Blood Urine Nitrite Urine Bilirubin Urine Urobilinogen Ur Leukocyte Esterase Syphilis Serology Non-reactive COVID-19 (JUANI) HIV Ag/Ab Combo Qual 09/15/19 09/16/19 09/16/19 15:52 08:00 15:15 WBC RBC Hgb Hct MCV MCH MCHC RDW Plt Count MPV Sodium Potassium Chloride Carbon Dioxide Anion Gap BUN Creatinine Est GFR (CKD-EPI)AfAm Est GFR (CKD-EPI)NonAf Random Glucose Calcium Total Bilirubin AST ALT Alkaline Phosphatase Total Protein Albumin Urine Color Yellow Urine Appearance Turbid Urine pH >= 9.0 H Ur Specific [place] 1.016 Urine Protein Trace Urine Glucose (UA) Negative Urine Ketones Negative Urine Blood Negative Urine Nitrite Negative Urine Bilirubin Negative Urine Urobilinogen 0.2 Ur Leukocyte Esterase Negative Syphilis Serology COVID-19 (JUANI) Not detected HIV Ag/Ab Combo Qual Negative labs noted alert o x 3 nad oob ambulating with steady gait Assessment: 09/18/19 10:52 withdrawal sx Plan: cont detox increase po fluids maintain saftey
--- NOTE | 2019-09-18 12:30 | DS ---
[facility] Detox Discharge Summary Admission Date: 09/15/19 Discharge Date: 09/18/19 - History Present History: Opioid Dependence, Sedative Dependence Additional Comments: Pt request early voluntary discharge for family reasons/work. Denies any acute discomfort at this time. Denies s/h/i. Reports has Narcan at home and does not need Rx at this time. Pt has a primary care provider Dr. Gaurav Finch on [address] [place], [place]. Pt met with his counselor and has been referred to aftercare site to follow up. Pertinent Past History: PSx:Metal Plate in Right Hand-over 10 yrs. - Physical Exam Results Vital Signs: Vital Signs Temperature 97.5 F L 09/18/19 09:10 Pulse Rate 68 09/18/19 09:10 Respiratory Rate 19 09/18/19 09:10 Blood Pressure 116/71 09/18/19 09:10 O2 Sat by Pulse Oximetry (%) 95 09/18/19 09:10 Alert o x 3 No acute distress oob ambulating with steady gait Active ROM all extremities. Pertinent Admission Physical Exam Findings: Withdrawal sx Laboratory Tests 09/15/19 09/15/19 09/15/19 15:30 15:30 15:30 WBC 10.2 H RBC 4.79 Hgb 13.4 Hct 41.3 MCV 86.2 MCH 28.0 MCHC 32.4 RDW 14.7 Plt Count 183 D MPV 11.4 H Sodium 138 Potassium 3.7 Chloride 101 Carbon Dioxide 30 Anion Gap 7 L BUN 13.3 Creatinine 0.9 Est GFR (CKD-EPI)AfAm 131.44 Est GFR (CKD-EPI)NonAf 113.41 Random Glucose 105 Calcium 9.0 Total Bilirubin 0.4 AST 13 L ALT 20 Alkaline Phosphatase 61 Total Protein 7.6 Albumin 4.0 Urine Color Urine Appearance Urine pH Ur Specific [place] Urine Protein Urine Glucose (UA) Urine Ketones Urine Blood Urine Nitrite Urine Bilirubin Urine Urobilinogen Ur Leukocyte Esterase Syphilis Serology Non-reactive COVID-19 (JUANI) HIV Ag/Ab Combo Qual 09/15/19 09/16/19 09/16/19 15:52 08:00 15:15 WBC RBC Hgb Hct MCV MCH MCHC RDW Plt Count MPV Sodium Potassium Chloride Carbon Dioxide Anion Gap BUN Creatinine Est GFR (CKD-EPI)AfAm Est GFR (CKD-EPI)NonAf Random Glucose Calcium Total Bilirubin AST ALT Alkaline Phosphatase Total Protein Albumin Urine Color Yellow Urine Appearance Turbid Urine pH >= 9.0 H Ur Specific [place] 1.016 Urine Protein Trace Urine Glucose (UA) Negative Urine Ketones Negative Urine Blood Negative Urine Nitrite Negative Urine Bilirubin Negative Urine Urobilinogen 0.2 Ur Leukocyte Esterase Negative Syphilis Serology COVID-19 (JUANI) Not detected HIV Ag/Ab Combo Qual Negative - Treatment Hospital Course: Discharged Condition Good, Rehab Referral Accepted Patient has Accepted a Rehab Referral to: [facility], [place], [place] - Medication Discharge Medications: Ambulatory Orders NK [No Known Home Medication] 09/15/19 - Diagnosis (1) Opioid dependence with withdrawal Current Visit: Yes Status: Acute (2) Nicotine dependence Current Visit: Yes Status: Acute Qualifiers: Nicotine product type: cigarettes Substance use status: in withdrawal Qualified Code(s): F17.213 - Nicotine dependence, cigarettes, with withdrawal (3) Sedative, hypnotic or anxiolytic use disorder, mild, abuse Current Visit: Yes Status: Acute - AMA Did Patient Leave Against Medical Advice: No
[2019-09-19] MEDS ORDERED: METHADONE HCL 10 MG TABLET (FOR DETOX USE ONLY) PO ONE (10:00)
[2019-09-20] MEDS ORDERED: METHADONE HCL 5 MG TABLET (FOR DETOX USE ONLY) PO ONE (06:00)
== END 2019-09-18 12:50 | disposition home or self-care (01) | DRG 773 ==
LOC: YASAS 13:55 → Y5N DETOX 15:21
PROVIDERS: ADMIT Allergy & Immunology; ATTEND Allergy & Immunology
PROC: HZ2ZZZZ Detoxification Services for Substance Abuse Treatment (ICD-10-PCS; principal; 2019-09-15)
DX: F11.23 Opioid dependence with withdrawal (principal); F13.10 Sedative, hypnotic or anxiolytic abuse, uncomplicated; F17.213 Nicotine dependence, cigarettes, with withdrawal
CPT/HCPCS: 36415; 80053; 81003; 85027; 86780; 87389; 93005; 93010; U0003

== ENCOUNTER 2019-11-16 08:53 | Inpatient (IN) | payer OTHER ==
--- NOTE | 2019-11-16 09:06 | BHS.RME ---
Substance Use & Tx History - Substance Use History Heroin Substance amount: 10-15 bags Frequency of use: Daily Substance route: Inhalation (ex: sniffing or snorting), Smoking Date of Last Use: 11/15/19 (started age 20) Cocaine- Powder Substance amount: $40-50 Frequency of use: Daily Substance route: Inhalation (ex: sniffing or snorting), Smoking Date of Last Use: 11/15/19 (started age 28) - Last Treatment Date of last treatment: 09/18/19 early discharge Treatment type: Substance Use Disorder (JOSE G) Physical/Psych/Mental Status - Behavior General Behavior: Increased activity (restlessness, agitation) Eye Contact: Normal - Cooperativeness Cooperativeness: Cooperative - Thinking Thought Processes: Tight, Logical, Goal Directed - Physical Health Problems Is patient presently having any pain?: No Does patient presently have any injuries (include location): No Does patient currently have a fever: No Is patient : No COWS - Scale Resting Pulse: 0= OR 80 or Below Sweatin= Chills/Flushing Restless Observation: 1= Difficult to Sit Still Pupil Size: 2= Moderately Dilated Bone or Joint Aches: 2= Severe Diffuse Aches Runny Nose/ Eye Tearin= Runny Nose/Eyes GI Upset > 30mins: 1= Stomach Cramp Tremor Observation: 1= Tremor [place], Not Seen Yawning Observation: 1= 1-2x During Session Anxiety or Irritability: 2=Irritable/Anxious Goose Flesh Skin: 3=Piloerection COWS Score: 16
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
[2019-11-16] MEDS ORDERED: cloNIDine HCL 0.1 MG TABLET PO PRN (09:41)
[2019-11-16] MEDS ORDERED: MAG HYDROX/AL HYDROX/SIMETH 30 ML UNIT-DOSE CUP PO PRN (09:41)
[2019-11-16] MEDS ORDERED: BISMUTH SUBSALICYLATE 262 MG/15 ML BTL PO PRN (09:41)
[2019-11-16] MEDS ORDERED: METHADONE HCL 10 MG TABLET (FOR DETOX USE ONLY) PO ONE (09:41)
[2019-11-16] MEDS ORDERED: MAGNESIUM CITRATE 300 ML BOTTLE PO PRN (09:41)
[2019-11-16] MEDS ORDERED: MAGNESIUM HYDROX 2400MG/30ML ORAL SUSPENSION 30 ML CUP PO PRN (09:41)
[2019-11-16] MEDS ORDERED: ACETAMINOPHEN 325 MG TABLET (FP) PO PRN ×2 (09:41)
[2019-11-16] MEDS ORDERED: MENTHOL/PHENOL 1 EACH UD MM PRN (09:41)
[2019-11-16] MEDS ORDERED: ONDANSETRON *ODT* 4 MG TABLET SL PRN (09:41)
[2019-11-16] MEDS ORDERED: IBUPROFEN 400 MG TABLET (FP) PO PRN (09:41)
[2019-11-16] MEDS ORDERED: METHOCARBAMOL 500 MG TABLET PO PRN (09:41)
[2019-11-16] MEDS ORDERED: NICOTINE POLACRILEX 2 MG GUM BUC PRN (09:41)
[2019-11-16 09:53] VITALS: BMI 18.9
--- OUTSIDE RECORDS SUMMARY | 2019-11-16 10:00 | XMS ---
:1990 [facility] Support Name Relationship Address Phone UE, UNEMPLOYED Unavailable Unavailable Unavailable UE Unavailable Unavailable Unavailable SHANIQUA FINLEY MOTHER [address] [facility] [place] [phone] SHANIQUA FINLEY Mother [address] [place] [phone] Re-disclosure Warning The records that you are about to access may contain information from federally- assisted alcohol or drug abuse programs. If such information is present, then the following federally mandated warning applies: This information has been disclosed to you from records protected by federal confidentiality rules (42 CFR part 2). The federal rules prohibit you from making any further disclosure of this information unless further disclosure is expressly permitted by the written consent of the person to whom it pertains or as otherwise permitted by 42 CFR part 2. A general authorization for the release of medical or other information is NOT sufficient for this purpose. The Federal rules restrict any use of the information to criminally investigate or prosecute any alcohol or drug abuse patient.The records that you are about to access may contain highly sensitive health information, the redisclosure of which is protected by Article 27-F of the [facility] Public Health law. If you continue you may haveaccess to information: Regarding HIV / AIDS; Provided by facilities licensed or operated by the [facility] Office of Mental Health; or Provided by the [facility] Office for People With Developmental Disabilities. If such information is present, then the following [facility] mandated warning applies: This information has been disclosed to you from confidential records which are protected by state law. State law prohibits you from making any further disclosure of this information without the specific written consent of the person to whom it pertains, or as otherwise permitted by law. Any unauthorized further disclosure in violation of state law may result in a fine or care home sentence or both. A general authorization for the release of medical or other information is NOT sufficient authorization for further disclosure. Insurance Providers Payer name Policy type Policy ID Covered Covered green party's Policy P julian / Coverage green party ID relationship to Skinner Inf ormation type skinner BEACON [id number] SP [id number] [facility] BEACON [id number] SP [id number] [facility]US Results ID Date Data Source [id number] 09/15/2019 03:52:00 PM EDT [facility] Name Value Range Interpretation Description Data Sup porting Code Source(s) Document(s ) SARS [facility] coronavirus 2 RNA This lab was ordered by [facility] Aliyah Herman ct Bill Inter and reported by [facility]. Procedure
[2019-11-16] MEDS: PRENATAL VITAMINS W/ FOLIC ACID TABLET (FP) PO SCH (10:56)
[2019-11-16] MEDS: NICOTINE 7 MG/24 HOURS TOPICAL PATCH TD SCH (10:57)
[2019-11-16] MEDS: hydrOXYzine PAMOATE 25 MG CAPSULE (FP) PO SCH ×4 (10:57→23:16)
[2019-11-16 13:29] LABS: HEMATOCRIT 40.9 % (35.4-49); HEMOGLOBIN 13.3 GM/dL (11.7-16.9); MCH 28.2 pg (25.7-33.7); MCHC 32.6 g/dl (32.0-35.9); MEAN CELL VOLUME 86.5 fl (80-96); MEAN PLT VOLUME 10.6 fl (7.5-11.1); PLATELET COUNT 199 K/MM3 (134-434); RBC 4.72 M/mm3 (4.00-5.60); RDW 14.4 % (11.9-15.9)
[2019-11-16 13:31] LABS: ALBUMIN 3.7 g/dl (3.4-5.0); BILIRUBIN,TOTAL 0.4 mg/dL (0.2-1); BLOOD UREA NITROGEN 12.3 mg/dL (7-18); CREATININE 0.9 mg/dL (0.55-1.3); POTASSIUM 4.7 mmol/L (3.5-5.1); TOT PROT 6.8 g/dl (6.4-8.2)
[2019-11-16] MEDS: MELATONIN 5 MG TABLETS PO SCH (23:16)
[2019-11-16] MEDS: THIAMINE HCL 100 MG TABLET (FP) PO SCH (23:17)
[2019-11-17] MEDS: hydrOXYzine PAMOATE 25 MG CAPSULE (FP) PO SCH ×5 (05:50→22:51)
[2019-11-17] MEDS ORDERED: METHADONE HCL 5 MG TABLET (FOR DETOX USE ONLY) ONE (09:01)
[2019-11-17] MEDS ORDERED: METHADONE HCL 10 MG TABLET (FOR DETOX USE ONLY) ONE (09:01)
[2019-11-17] MEDS: PRENATAL VITAMINS W/ FOLIC ACID TABLET (FP) PO SCH (09:34)
[2019-11-17] MEDS: NICOTINE 7 MG/24 HOURS TOPICAL PATCH TD SCH (09:38)
[2019-11-17] MEDS: diazePAM 5 MG TABLET PO PRN (09:48)
[2019-11-17] MEDS ORDERED: METHADONE (DETOX) 20 MG, METHADONE (DETOX) 5 MG PO ONE (10:00)
--- NOTE | 2019-11-17 10:50 | PN ---
S COWS - Scale Resting Pulse: 0= [place] 80 or Below Sweatin= No chills or Flushing Restless Observation: 0= Sits Still Pupil Size: 1= Pupils >than Normal Bone or Joint Aches: 2= Severe Diffuse Aches Runny Nose/ Eye Tearin= Nasal Congestion GI Upset > 30mins: 2= Nausea/Diarrhea Tremor Observation of Outstretched Hands: 2= Slight Tremor Visible Yawning Observation: 1= 1-2x During Session Anxiety or Irritability: 2=Irritable/Anxious Goose Flesh Skin: 0=Smooth Skin COWS Score: 11 S Progress Note (SOAP) Subjective: alert,irritable,anxious,interrupted sleep,aching pain in the body and back Objective: 11/17/19 16:58 Vital Signs Temperature 96.8 F L 11/17/19 12:35 Pulse Rate 77 11/17/19 12:35 Respiratory Rate 18 11/17/19 12:35 Blood Pressure 103/60 11/17/19 12:35 O2 Sat by Pulse Oximetry (%) 98 11/17/19 12:35 Laboratory Last Values WBC 6.0 K/mm3 (4.0-10.0) 11/16/19 10:03 RBC 4.72 M/mm3 (4.00-5.60) 11/16/19 10:03 Hgb 13.3 GM/dL (11.7-16.9) 11/16/19 10:03 Hct 40.9 % (35.4-49) 11/16/19 10:03 MCV 86.5 fl (80-96) 11/16/19 10:03 MCH 28.2 pg (25.7-33.7) 11/16/19 10:03 MCHC 32.6 g/dl (32.0-35.9) 11/16/19 10:03 RDW 14.4 % (11.9-15.9) 11/16/19 10:03 Plt Count 199 K/MM3 (134-434) 11/16/19 10:03 MPV 10.6 fl (7.5-11.1) 11/16/19 10:03 Sodium 139 mmol/L (136-145) 11/16/19 10:03 Potassium 4.7 mmol/L (3.5-5.1) 11/16/19 10:03 Chloride 101 mmol/L (98-107) 11/16/19 10:03 Carbon Dioxide 34 mmol/L (21-32) H 11/16/19 10:03 Anion Gap 4 MMOL/L (8-16) L 11/16/19 10:03 BUN 12.3 mg/dL (7-18) 11/16/19 10:03 Creatinine 0.9 mg/dL (0.55-1.3) 11/16/19 10:03 Est GFR (CKD-EPI)AfAm 131.44 11/16/19 10:03 Est GFR (CKD-EPI)NonAf 113.41 11/16/19 10:03 POC Glucometer 95 UNITS (80-120) 11/17/19 09:11 Random Glucose 67 mg/dL (74-106) L 11/16/19 10:03 Calcium 9.0 mg/dL (8.5-10.1) 11/16/19 10:03 Total Bilirubin 0.4 mg/dL (0.2-1) 11/16/19 10:03 AST 17 U/L (15-37) 11/16/19 10:03 ALT 24 U/L (13-61) 11/16/19 10:03 Alkaline Phosphatase 72 U/L (45-117) 11/16/19 10:03 Total Protein 6.8 g/dl (6.4-8.2) 11/16/19 10:03 Albumin 3.7 g/dl (3.4-5.0) 11/16/19 10:03 Syphilis Serology Non-reactive (NONREACTIVE) 11/16/19 10:03 COVID-19 (JUANI) Not detected (Not Detected) 11/16/19 10:03 Assessment: 11/17/19 16:59 withdrawals symptom Plan: continue detox methadone regimen,valium 10 mgs po q 4 hour prn for 72 hrs
[2019-11-17] MEDS ORDERED: FLU VACCINE (FLULAVAL) PF 60 MCG/0.5 ML SYRINGE 2020-2021 IM ONE (12:00)
[2019-11-17] MEDS: THIAMINE HCL 100 MG TABLET (FP) PO SCH (22:51)
[2019-11-17] MEDS: MELATONIN 5 MG TABLETS PO SCH (22:51)
[2019-11-18] MEDS: hydrOXYzine PAMOATE 25 MG CAPSULE (FP) PO SCH ×5 (06:24→23:02)
[2019-11-18] MEDS ORDERED: METHADONE HCL 10 MG TABLET (FOR DETOX USE ONLY) PO ONE (10:00)
[2019-11-18] MEDS: NICOTINE 7 MG/24 HOURS TOPICAL PATCH TD SCH (10:18)
[2019-11-18] MEDS: diazePAM 5 MG TABLET PO PRN (10:19)
[2019-11-18] MEDS: PRENATAL VITAMINS W/ FOLIC ACID TABLET (FP) PO SCH (10:20)
--- NOTE | 2019-11-18 12:55 | PN ---
S COWS - Scale Resting Pulse: 0= [place] 80 or Below Sweatin= No chills or Flushing Restless Observation: 0= Sits Still Pupil Size: 1= Pupils >than Normal Bone or Joint Aches: 2= Severe Diffuse Aches Runny Nose/ Eye Tearin= Nasal Congestion GI Upset > 30mins: 2= Nausea/Diarrhea Tremor Observation of Outstretched Hands: 2= Slight Tremor Visible Yawning Observation: 1= 1-2x During Session Anxiety or Irritability: 2=Irritable/Anxious Goose Flesh Skin: 0=Smooth Skin COWS Score: 11 S Progress Note (SOAP) Subjective: alert,irritable,anxious,interrupted sleep,pain in the body,back, Objective: 11/18/19 17:21 Vital Signs Temperature 98 F 11/18/19 12:52 Pulse Rate 88 11/18/19 12:52 Respiratory Rate 18 11/18/19 12:52 Blood Pressure 106/68 11/18/19 12:52 O2 Sat by Pulse Oximetry (%) 96 11/18/19 12:52 11/18/19 17:21 Laboratory Last Values WBC 6.0 K/mm3 (4.0-10.0) 11/16/19 10:03 RBC 4.72 M/mm3 (4.00-5.60) 11/16/19 10:03 Hgb 13.3 GM/dL (11.7-16.9) 11/16/19 10:03 Hct 40.9 % (35.4-49) 11/16/19 10:03 MCV 86.5 fl (80-96) 11/16/19 10:03 MCH 28.2 pg (25.7-33.7) 11/16/19 10:03 MCHC 32.6 g/dl (32.0-35.9) 11/16/19 10:03 RDW 14.4 % (11.9-15.9) 11/16/19 10:03 Plt Count 199 K/MM3 (134-434) 11/16/19 10:03 MPV 10.6 fl (7.5-11.1) 11/16/19 10:03 Sodium 139 mmol/L (136-145) 11/16/19 10:03 Potassium 4.7 mmol/L (3.5-5.1) 11/16/19 10:03 Chloride 101 mmol/L (98-107) 11/16/19 10:03 Carbon Dioxide 34 mmol/L (21-32) H 11/16/19 10:03 Anion Gap 4 MMOL/L (8-16) L 11/16/19 10:03 BUN 12.3 mg/dL (7-18) 11/16/19 10:03 Creatinine 0.9 mg/dL (0.55-1.3) 11/16/19 10:03 Est GFR (CKD-EPI)AfAm 131.44 11/16/19 10:03 Est GFR (CKD-EPI)NonAf 113.41 11/16/19 10:03 POC Glucometer 95 UNITS (80-120) 11/17/19 09:11 Random Glucose 67 mg/dL (74-106) L 11/16/19 10:03 Calcium 9.0 mg/dL (8.5-10.1) 11/16/19 10:03 Total Bilirubin 0.4 mg/dL (0.2-1) 11/16/19 10:03 AST 17 U/L (15-37) 11/16/19 10:03 ALT 24 U/L (13-61) 11/16/19 10:03 Alkaline Phosphatase 72 U/L (45-117) 11/16/19 10:03 Total Protein 6.8 g/dl (6.4-8.2) 11/16/19 10:03 Albumin 3.7 g/dl (3.4-5.0) 11/16/19 10:03 Syphilis Serology Non-reactive (NONREACTIVE) 11/16/19 10:03 COVID-19 (JUANI) Not detected (Not Detected) 11/16/19 10:03 Assessment: 11/18/19 17:22 withdrawal symptom Plan: continue detox methadone regimen,valium 10 mgs [id number] prn for severe withdrawal
[2019-11-18] MEDS: MELATONIN 5 MG TABLETS PO SCH (23:02)
[2019-11-18] MEDS: THIAMINE HCL 100 MG TABLET (FP) PO SCH (23:02)
[2019-11-19] MEDS: hydrOXYzine PAMOATE 25 MG CAPSULE (FP) PO SCH ×2 (06:20→10:29)
[2019-11-19 06:30] VITALS: TEMP 97.1
[2019-11-19 09:46] VITALS: BP 112/67; PULSE 64
[2019-11-19] MEDS ORDERED: METHADONE HCL 10 MG TABLET (FOR DETOX USE ONLY) ONE (09:51)
[2019-11-19] MEDS ORDERED: METHADONE HCL 5 MG TABLET (FOR DETOX USE ONLY) ONE (09:51)
[2019-11-19] MEDS ORDERED: METHADONE (DETOX) 10 MG, METHADONE (DETOX) 5 MG PO ONE (10:00)
--- NOTE | 2019-11-19 10:26 | PN ---
BHS COWS - Scale Resting Pulse: 0= [place] 80 or Below Sweatin= No chills or Flushing Restless Observation: 0= Sits Still Pupil Size: 0= Normal to Room Light Bone or Joint Aches: 0= None Runny Nose/ Eye Tearin= None GI Upset > 30mins: 0= None Tremor Observation of Outstretched Hands: 0= None Yawning Observation: 0= None Anxiety or Irritability: 1=Feels Anxious/Irritable Goose Flesh Skin: 0=Smooth Skin COWS Score: 1 BHS Progress Note (SOAP) Subjective: alert,no complaint Objective: 11/19/19 11:38 Vital Signs Temperature 97.1 F L 11/19/19 08:45 Pulse Rate 64 11/19/19 08:45 Respiratory Rate 18 11/19/19 08:45 Blood Pressure 112/67 11/19/19 08:45 O2 Sat by Pulse Oximetry (%) 97 11/19/19 06:29 Assessment: 11/19/19 11:39 no withdrawal symptom Plan: stable for discharge today,follow up with after care program as arrangement
[2019-11-19] MEDS: diazePAM 5 MG TABLET PO PRN (10:29)
[2019-11-19] MEDS: NICOTINE 7 MG/24 HOURS TOPICAL PATCH TD SCH (10:29)
[2019-11-19] MEDS: PRENATAL VITAMINS W/ FOLIC ACID TABLET (FP) PO SCH (10:30)
--- NOTE | 2019-11-19 10:59 | DS ---
[facility] Detox Discharge Summary Admission Date: 11/16/19 Discharge Date: 11/19/19 - History Present History: Cocaine Dependence, Opioid Dependence Additional Comments: alert,oriented x 3 ambulation on the unit lung clear on auscultation bilaterally abdomen soft,no pain,no tenderness no edema of legs no withdrawal symptom stable for discharge today declined rehab follow up with [facility] as arrangement left the unit in stable condition,total time spending 35 minutes Pertinent Past History: nicotine dependence - Physical Exam Results Vital Signs: Vital Signs Temperature 97.1 F L 11/19/19 08:45 Pulse Rate 64 11/19/19 08:45 Respiratory Rate 18 11/19/19 08:45 Blood Pressure 112/67 11/19/19 08:45 O2 Sat by Pulse Oximetry (%) 97 11/19/19 06:29 Pertinent Admission Physical Exam Findings: withdrawal signs and symptom Laboratory Last Values WBC 6.0 K/mm3 (4.0-10.0) 11/16/19 10:03 RBC 4.72 M/mm3 (4.00-5.60) 11/16/19 10:03 Hgb 13.3 GM/dL (11.7-16.9) 11/16/19 10:03 Hct 40.9 % (35.4-49) 11/16/19 10:03 MCV 86.5 fl (80-96) 11/16/19 10:03 MCH 28.2 pg (25.7-33.7) 11/16/19 10:03 MCHC 32.6 g/dl (32.0-35.9) 11/16/19 10:03 RDW 14.4 % (11.9-15.9) 11/16/19 10:03 Plt Count 199 K/MM3 (134-434) 11/16/19 10:03 MPV 10.6 fl (7.5-11.1) 11/16/19 10:03 Sodium 139 mmol/L (136-145) 11/16/19 10:03 Potassium 4.7 mmol/L (3.5-5.1) 11/16/19 10:03 Chloride 101 mmol/L (98-107) 11/16/19 10:03 Carbon Dioxide 34 mmol/L (21-32) H 11/16/19 10:03 Anion Gap 4 MMOL/L (8-16) L 11/16/19 10:03 BUN 12.3 mg/dL (7-18) 11/16/19 10:03 Creatinine 0.9 mg/dL (0.55-1.3) 11/16/19 10:03 Est GFR (CKD-EPI)AfAm 131.44 11/16/19 10:03 Est GFR (CKD-EPI)NonAf 113.41 11/16/19 10:03 POC Glucometer 95 UNITS (80-120) 11/17/19 09:11 Random Glucose 67 mg/dL (74-106) L 11/16/19 10:03 Calcium 9.0 mg/dL (8.5-10.1) 11/16/19 10:03 Total Bilirubin 0.4 mg/dL (0.2-1) 11/16/19 10:03 AST 17 U/L (15-37) 11/16/19 10:03 ALT 24 U/L (13-61) 11/16/19 10:03 Alkaline Phosphatase 72 U/L (45-117) 11/16/19 10:03 Total Protein 6.8 g/dl (6.4-8.2) 11/16/19 10:03 Albumin 3.7 g/dl (3.4-5.0) 11/16/19 10:03 Syphilis Serology Non-reactive (NONREACTIVE) 11/16/19 10:03 COVID-19 (JUANI) Not detected (Not Detected) 11/16/19 10:03 Vital Signs Temperature 97.1 F L 11/19/19 08:45 Pulse Rate 64 11/19/19 08:45 Respiratory Rate 18 11/19/19 08:45 Blood Pressure 112/67 11/19/19 08:45 O2 Sat by Pulse Oximetry (%) 97 11/19/19 06:29 - Treatment Hospital Course: Detox Protocol Followed, Detoxed Safely, Responded well, Discharged Condition Good Patient has Accepted a Rehab Referral to: declined - Medication Discharge Medications: Ambulatory Orders NK [No Known Home Medication] 09/15/19 - Diagnosis (1) Opioid dependence with withdrawal Status: Acute (2) Cocaine dependence Status: Acute Qualifiers: Substance use status: in withdrawal Qualified Code(s): F14.23 - Cocaine dependence with withdrawal (3) Nicotine dependence Status: Acute Qualifiers: Nicotine product type: cigarettes Substance use status: in withdrawal Qu alified Code(s): F17.213 - Nicotine dependence, cigarettes, with withdrawal - AMA Did Patient Leave Against Medical Advice: No
[2019-11-20] MEDS ORDERED: METHADONE HCL 10 MG TABLET (FOR DETOX USE ONLY) PO ONE (10:00)
[2019-11-21] MEDS ORDERED: METHADONE HCL 5 MG TABLET (FOR DETOX USE ONLY) PO ONE (06:00)
== END 2019-11-19 11:28 | disposition home or self-care (01) | DRG 773 ==
LOC: YASAS 08:53 → Y3N 09:52
PROVIDERS: ADMIT Allergy & Immunology; ATTEND Allergy & Immunology
PROC: HZ2ZZZZ Detoxification Services for Substance Abuse Treatment (ICD-10-PCS; principal; 2019-11-16)
DX: F11.23 Opioid dependence with withdrawal (principal); F14.20 Cocaine dependence, uncomplicated; F17.210 Nicotine dependence, cigarettes, uncomplicated
CPT/HCPCS: 36415; 80053; 82962; 85027; 86780; U0003

== ENCOUNTER 2019-12-10 09:12 | Inpatient (IN) | payer OTHER ==
--- OUTSIDE RECORDS SUMMARY | 2019-12-10 09:16 | XMS ---
:1990 Author Organization [facility] Support Name Relationship Address Phone UE, UNEMPLOYED Unavailable Unavailable Unavailable UE Unavailable Unavailable Unavailable SHANIQUA FINLEY MOTHER [address] [place] [phone] SHANIQUA FINLEY Mother [address] [place] [address] Re-disclosure Warning The records that you are [...] is protected by Article 27-F of the [facility] Public Health law. If you continue you may haveaccess to information: Regarding HIV / AIDS; Provided by facilities licensed or operated by the [facility] Office of Mental Health; or Provided by the [facility] Office for People With Developmental Disabilities. If such information is present, then the following [facility] mandated warning applies: This information has [...] law may result in a fine or custodial sentence or both. A general authorization for the release of medical or other information is NOT sufficient authorization for further disclosure. Insurance Providers Payer name Policy type Policy ID Covered Covered libertarian's Policy P julian / Coverage libertarian ID relationship to Skinner Inf ormation type skinner BEACON [id number] SP [id number] [facility] BEACON [id number] SP [id number] [facility] Results ID Date Data Source [id number] 11/16/2019 10:03:00 AM EDT [facility] Name Value Range Interpretation Description Data Sup porting Code Source(s) Document(s ) SARS [facility] coronavirus 2 RNA This lab was ordered by [facility] ct Bill Inter and reported by [facility]. ID Date Data Source [id number] 09/15/2019 03:52:00 PM EDT [facility] Name Value Range Interpretation Description Data Sup porting Code Source(s) Document(s ) SARS [facility] coronavirus 2 RNA This lab was ordered by [facility] ct Bill Inter and reported by [facility]. Procedure
--- NOTE | 2019-12-10 09:31 | BHS.RME ---
2019 N Coronavirus Screen - COVID-19 Screening Questions Dx of COVID-19 or had a positive test in the last 4 weeks?: No Contact with known/suspected COVID patient in last 14 days?: No Any of these symptoms or contact with someone who has?: None Traveled domestically/internationally in the last 14 days?: No Screen score: 0 Screen result: Further Evaluation Substance Use & Tx History - Substance Use History Heroin Substance amount: 10-15 bags Frequency of use: Daily Substance route: Smoking Date of Last Use: 12/09/19 (started age 24) Cocaine-Crack Substance amount: $40-50 Frequency of use: Daily Substance route: Smoking Date of Last Use: 12/07/19 (started age 20) Physical/Psych/Mental Status - Behavior General Behavior: Increased activity (restlessness, agitation) Eye Contact: Normal - Cooperativeness Cooperativeness: Cooperative - Thinking Thought Processes: Tight, Logical, Goal Directed - Physical Health Problems Is patient presently having any pain?: No Does patient presently have any injuries (include location): No Does patient currently have a fever: No Is patient : No COWS - Scale Resting Pulse: 0= [place] 80 or Below Sweatin= Chills/Flushing Restless Observation: 1= Difficult to Sit Still Pupil Size: 1= Pupils >than Normal Bone or Joint Aches: 1= Mild Discomfort Runny Nose/ Eye Tearin= Nasal Congestion GI Upset > 30mins: 1= Stomach Cramp Tremor Observation: 1= Tremor [place], Not Seen Yawning Observation: 1= 1-2x During Session Anxiety or Irritability: 1=Feels Anxious/Irritable Goose Flesh Skin: 3=Piloerection COWS Score: 12
[2019-12-10 09:58] VITALS: BMI 19.6
--- NOTE | 2019-12-10 10:31 | HP ---
COWS - Scale Resting Pulse: 0= [place] 80 or Below Sweatin= Chills/Flushing Restless Observation: 1= Difficult to Sit Still Pupil Size: 1= Pupils >than Normal Bone or Joint Aches: 1= Mild Discomfort Runny Nose/ Eye Tearin= Nasal Congestion GI Upset > 30mins: 1= Stomach Cramp Tremor Observation: 1= Tremor [place], Not Seen Yawning Observation: 1= 1-2x During Session Anxiety or Irritability: 1=Feels Anxious/Irritable Goose Flesh Skin: 3=Piloerection COWS Score: 12 CIWA Score - Admission Criteria OASAS Guidelines: Admission for Medically Managed Detox: Requires at least one of the followin. CIWA greater than 12 2. Seizures within the past 24 hours 3. Delirium tremens within the past 24 hours 4. Hallucinations within the past 24 hours 5. Acute intervention needed for co occurring medical disorder 6. Acute intervention needed for co occurring psychiatric disorder 7. Severe withdrawal that cannot be handled at a lower level of care (continued vomiting, continued diarrhea, abnormal vital signs) requiring intravenous medication and/or fluids 8. Admitting History and Physical - Admission Chief Complaint: Mr. Stevens is a 29 yo man who presents to [facility] requesting admission to detox for heroin use disorder. History of Present Illness: Mr. Stevens is a 29 yo man who presents to [facility] requesting admission to detox for heroin use disorder. He was last here between Nov 15 and Nov 18, completed detox but declined referral to rehab. Additionally, he was here in July and August for detox. PMH: none PSH: fracture right hand in 2003 Psych: no SOC: homeless, kicked out of mother in law's house Legal: pending case of drug possession Substance Use History Heroin Substance amount: 10-15 bags Frequency of use: Daily Substance route: Smoking Date of Last Use: 12/09/19 (started age 24) No hx of OD has Narcan with him Cocaine-Crack Substance amount: $40-50 Frequency of use: Daily Substance route: Smoking Date of Last Use: 12/07/19 (started age 20) Nicotine: 6-7 cigs per day since age 14 y Methadone: buys on street, last use 3-4 days ago Amphetamines/methamphetamines: does not quantify, last use 3 or 4 days ago, began use age 25 y History Source: Patient Limitations to Obtaining History: No Limitations - Past Medical History Psych: Yes: Addictions - Past Surgical History Past Surgical History: Yes: None - Smoking History Smoking history: Current every day smoker Have you smoked in the past 12 months: Yes Aproximately how many cigarettes per day: 6 - Alcohol/Substance Use Hx Alcohol Use: No History of Substance Use: reports: Cocaine, Heroin Date of Last Use: 08/13/19 - Social History ADL: Independent History of Recent Travel: No Admission [facility] Allergies/Adverse Reactions: Allergies Allergy/AdvReac Type Severity Reaction Status Date / Time No Known Allergies Allergy Verified 11/16/19 09:46 Exam Limitations: No Limitations - Ebola screening Have you traveled outside of the country in the last 21 days: No Have you been sick,other than usual withdrawal symptoms: No Do you have a fever: No - Review of Systems Constitutional: Unintentional Wgt. Loss (20-30 lbs lost in the past 6 mos) EENT: reports: No Symptoms Reported Respiratory: reports: No Symptoms reported Cardiac: reports: No Symptoms Reported GI: reports: Nausea : reports: No Symptoms Reported Musculoskeletal: reports: Back Pain, Joint Pain (withdrawal sx, and: he slept on the grass outside [employer] last night) Integumentary: reports: No Symptoms Reported Neuro: reports: No Symptoms reported Endocrine: reports: No Symptoms Reported Hematology: reports: No Symptoms Reported Psychiatric: reports: Anxious (no SI) Patient History - Patient Medical History Hx Anemia: No Hx Asthma: No Hx Chronic Obstructive Pulmonary Disease (COPD): No Hx Cancer: No Hx Cardiac Disorders: No Hx Congestive Heart Failure: No Hx Hypertension: No Hx Hypercholesterolemia: No Hx Pacemaker: No HX Cerebrovascular Accident: No Hx Seizures: No Hx Dementia: No Hx Diabetes: No Hx Gastrointestinal Disorders: No Hx Liver Disease: No Hx Genitourinary Disorders: No Hx Sexually Transmitted Disorders: No Hx Renal Disease (ESRD): No Hx Thyroid Disease: No Hx Human Immunodeficiency Virus (HIV): No (pt states he is negative) Hx Hepatitis C: No Hx Depression: No Hx Suicide Attempt: No Hx Bipolar Disorder: No Hx Schizophrenia: No - Patient Surgical History Past Surgical History: Yes Hx Neurologic Surgery: No Hx Cataract Extraction: No Hx Cardiac Surgery: No Hx Lung Surgery: No Hx Breast Surgery: No Hx Breast Biopsy: No Hx Abdominal Surgery: No Hx Appendectomy: No Hx Cholecystectomy: No Hx Genitourinary Surgery: No Hx Section: No Hx Orthopedic Surgery: Yes (metal plate to right hand 2003) Anesthesia Reaction: No - PPD History Previous Implant?: Yes Documented Results: Negative w/proof Implanted On Prior [facility] Admission?: Yes Date: 08/16/19 Results: neg - Reproductive History Patient : (n/a) - Smoking Cessation Smoking history: Current every day smoker Have you smoked in the past 12 months: Yes Aproximately how many cigarettes per day: 6 Cigars Per Day: 0 Hx Chewing Tobacco Use: No Initiated information on smoking cessation: Yes 'Breaking Loose' booklet given: 12/10/19 Admission Physical Exam [facility] - Vital Signs Vital Signs: Vital Signs - 24 hr 12/10/19 09:56 Temperature 97.4 F L Pulse Rate 78 Respiratory 18 Rate Blood Pressure 113/68 - Physical General Appearance: Yes: Thin, Tremorous HEENTM: Yes: EOMI, Hearing grossly Normal, Normocephalic, Normal Voice Respiratory: Yes: Lungs Clear, No Respiratory Distress, No Accessory Muscle Use Neck: Yes: Within Normal Limits, Supple Breast: Yes: Breast Exam Deferred Cardiology: Yes: Regular Rhythm, Regular Rate Abdominal: Yes: Non Tender, Flat, Soft, Increased Bowel Sounds Genitourinary: Yes: Other (defered) Back: Yes: Normal Inspection Musculoskeletal: Yes: Gait Steady Extremities: Yes: Normal Inspection, Non-Tender Neurological: Yes: Alert, Normal Response Integumentary: Yes: Normal Color, Dry, Warm - Diagnostic (1) Methamphetamine use Current Visit: Yes Status: Acute (2) Nicotine dependence Current Visit: Yes Status: Acute Qualifiers: Nicotine product type: cigarettes Substance use status: uncomplicated Qualified Code(s): F17.210 - Nicotine dependence, cigarettes, uncomplicated (3) Opioid dependence with withdrawal Current Visit: Yes Status: Acute Comment: 1. Admit detox 2. Methadone protocol Cleared for Admission [facility] - Detox or Rehab [facility] Level of Care: Medically Managed Detox Regimen/Protocol: Methadone Breathalyzer - Breathalyzer Breathalyzer: 0 Urine Drug Screen - Test Device Lot number: [id number] Expiration date: 05/26/21 - Control Is test valid?: Yes - Results Drug screen NEGATIVE: No Urine drug screen results: MET-Methamphetamine, AMP-Amphetamines, FEN-Fentanyl, MOP-Opiates, MTD-Methadone Inpatient Rehab Admission - Rehab Decision to Admit Inpatient rehab admission?: No
[2019-12-10] MEDS ORDERED: METHOCARBAMOL 500 MG TABLET PO PRN (10:33)
[2019-12-10] MEDS ORDERED: BISMUTH SUBSALICYLATE 262 MG/15 ML BTL PO PRN (10:33)
[2019-12-10] MEDS ORDERED: cloNIDine HCL 0.1 MG TABLET PO PRN (10:33)
[2019-12-10] MEDS ORDERED: IBUPROFEN 400 MG TABLET (FP) PO PRN (10:33)
[2019-12-10] MEDS ORDERED: METHADONE HCL 10 MG TABLET (FOR DETOX USE ONLY) PO ONE ×2 (10:33→14:57)
[2019-12-10] MEDS ORDERED: MAGNESIUM CITRATE 300 ML BOTTLE PO PRN (10:33)
[2019-12-10] MEDS ORDERED: NICOTINE POLACRILEX 2 MG GUM BUC PRN (10:33)
[2019-12-10] MEDS ORDERED: ACETAMINOPHEN 325 MG TABLET (FP) PO PRN ×2 (10:33)
[2019-12-10] MEDS ORDERED: MAG HYDROX/AL HYDROX/SIMETH 30 ML UNIT-DOSE CUP PO PRN (10:33)
[2019-12-10] MEDS ORDERED: MAGNESIUM HYDROX 2400MG/30ML ORAL SUSPENSION 30 ML CUP PO PRN (10:33)
[2019-12-10] MEDS ORDERED: MENTHOL/PHENOL 1 EACH UD MM PRN (10:33)
[2019-12-10] MEDS ORDERED: ONDANSETRON *ODT* 4 MG TABLET SL PRN (10:33)
[2019-12-10] MEDS: hydrOXYzine PAMOATE 25 MG CAPSULE (FP) PO SCH ×3 (15:07→22:24)
[2019-12-10] MEDS: MELATONIN 5 MG TABLETS PO SCH (22:23)
[2019-12-10] MEDS: THIAMINE HCL 100 MG TABLET (FP) PO SCH (22:24)
[2019-12-11] MEDS: hydrOXYzine PAMOATE 25 MG CAPSULE (FP) PO SCH ×5 (05:45→22:25)
[2019-12-11] MEDS ORDERED: METHADONE HCL 5 MG TABLET (FOR DETOX USE ONLY) ONE (09:24)
[2019-12-11] MEDS ORDERED: METHADONE HCL 10 MG TABLET (FOR DETOX USE ONLY) ONE (09:24)
[2019-12-11] MEDS ORDERED: METHADONE (DETOX) 20 MG, METHADONE (DETOX) 5 MG PO ONE (10:00)
--- NOTE | 2019-12-11 10:09 | PN ---
BHS COWS - Scale Resting Pulse: 0= [place] 80 or Below Sweatin=Flushed/Facial Moisture Restless Observation: 1= Difficult to Sit Still Pupil Size: 0= Normal to Room Light Bone or Joint Aches: 2= Severe Diffuse Aches Runny Nose/ Eye Tearin= Nasal Congestion GI Upset > 30mins: 1= Stomach Cramp Tremor Observation of Outstretched Hands: 1= Tremor [place], Not Seen Yawning Observation: 0= None Anxiety or Irritability: 1=Feels Anxious/Irritable Goose Flesh Skin: 0=Smooth Skin COWS Score: 9 BHS Progress Note (SOAP) Subjective: Pt seen and evaluated. No acute events overnight. Pt complaints of some bodily aches, sweates, nasal congestion and upset stomach. Objective: 12/11/19 10:08 Last Vital Signs Temp Pulse Resp BP Pulse Ox 98.2 F 87 18 117/71 100 12/11/19 08:55 12/11/19 08:55 12/11/19 08:55 12/11/19 08:55 12/11/19 06:21 GENERAL: Somnolent, but arousable. Not in acute distress HEENT: NCAT, EOMI MOTOR: Moving all extremities spontaneously. COORDINATION: well-coordinated GAIT: Gait not observed. Laboratory Last Values Sodium 139 mmol/L (136-145) 12/11/19 08:00 Potassium 4.1 mmol/L (3.5-5.1) 12/11/19 08:00 Chloride 104 mmol/L (98-107) 12/11/19 08:00 Carbon Dioxide 30 mmol/L (21-32) 12/11/19 08:00 Anion Gap 5 MMOL/L (8-16) L 12/11/19 08:00 BUN 11.3 mg/dL (7-18) 12/11/19 08:00 Creatinine 0.8 mg/dL (0.55-1.3) 12/11/19 08:00 Est GFR (CKD-EPI)AfAm 137.96 12/11/19 08:00 Est GFR (CKD-EPI)NonAf 119.03 12/11/19 08:00 Random Glucose 88 mg/dL (74-106) 12/11/19 08:00 Calcium 9.1 mg/dL (8.5-10.1) 12/11/19 08:00 Total Bilirubin 0.6 mg/dL (0.2-1) 12/11/19 08:00 AST 17 U/L (15-37) 12/11/19 08:00 ALT 29 U/L (13-61) 12/11/19 08:00 Total Protein 6.8 g/dl (6.4-8.2) 12/11/19 08:00 Albumin 3.7 g/dl (3.4-5.0) 12/11/19 08:00 Syphilis Serology Non-reactive (NONREACTIVE) 12/10/19 10:36 COVID-19 (JUANI) Not detected (Not Detected) 12/10/19 10:30 Active Medications Acetaminophen (Tylenol -) 650 mg PO Q6H PRN PRN Reason: PAIN LEVEL 4 - 6 Acetaminophen (Tylenol -) 650 mg PO Q6H PRN PRN Reason: FEVER Al Hydroxide/Mg Hydroxide (Mylanta Oral Suspension -) 30 ml PO Q6H PRN PRN Reason: DYSPEPSIA Bismuth Subsalicylate (Pepto-Bismol Liquid -) 30 ml PO Q1H PRN PRN Reason: DIARRHEA Clonidine (Catapres -) 0.1 mg PO Q4H PRN PRN Reason: Withdrawal Symptoms Stop: 12/12/19 23:59 Eucalyptus/Menthol/Phenol/Sorbitol (Cepastat Lozenge -) 1 each MM Q4H PRN PRN Reason: SORE THROAT Stop: 12/16/19 10:33 Hydroxyzine Pamoate [facility] -[facility] Stop: 12/16/19 10:33 Last Admin: 12/11/19 05:45 Dose: Not Given Documented by: Ibuprofen (Motrin -) 400 mg PO Q6H PRN PRN Reason: PAIN LEVEL 1 - 3 Influenza Virus Vaccine (Flulaval Quad [id number] Syr) 60 mcg IM .ONCE ONE Stop: 12/11/19 12:01 Magnesium Citrate (Citroma -) 300 ml PO Q48H PRN PRN Reason: CONSTIPATION Magnesium Hydroxide (Milk Of Magnesia -) 30 ml PO PRN PRN PRN Reason: CONSTIPATION Melatonin (Melatonin) 5 mg PO [facility] Last Admin: 12/10/19 22:23 Dose: Not Given Documented by: Methadone HCl (Dolophine -) 5 mg PO ONCE@0600 ONE Stop: 12/15/19 06:01 Methadone HCl (Dolophine -) 10 mg PO ONCE ONE Stop: 12/14/19 10:01 Methadone HCl (Dolophine -) 20 mg PO ONCE ONE Stop: 12/12/19 10:01 Methadone HCl 10 mg/ Methadone (HCl 5 mg) 15 mg PO ONCE ONE Stop: 12/13/19 10:01 Methocarbamol (Robaxin -) 500 mg PO Q6H PRN PRN Reason: MUSCLE SPASMS Stop: 12/16/19 10:33 Nicotine (Nicoderm Patch -) 7 mg TD DAILY [facility] Nicotine Polacrilex (Nicorette Gum -) 2 mg BUC Q2H PRN PRN Reason: NICOTINE REPLACEMENT RX Ondansetron HCl (Zofran Odt -) 4 mg SL Q8H PRN PRN Reason: Nausea/Vomiting Multivit/Folic Acid/Iron ( Vitamins (Sjr) -) 1 tab PO DAILY [facility] Thiamine HCl (Vitamin B1 -) 100 mg PO HS [facility] Last Admin: 12/10/19 22:24 Dose: Not Given Documented by: 12/11/19 10:38 Assessment: 12/11/19 10:09 1. Opiate use disorder with withdrawal, uncomplicated. 2. COVID and RPR negative as of 12/10/2019 Plan: 1. Continue methadone detox protocol. Projected completion 12/15/2019. 2. Follow pending labs.
[2019-12-11] MEDS: PRENATAL VITAMINS W/ FOLIC ACID TABLET (FP) PO SCH (10:28)
[2019-12-11] MEDS: NICOTINE 7 MG/24 HOURS TOPICAL PATCH TD SCH (10:28)
[2019-12-11 10:29] LABS: HEMATOCRIT 43.1 % (35.4-49); HEMOGLOBIN 13.9 GM/dL (11.7-16.9); MCH 28.1 pg (25.7-33.7); MCHC 32.2 g/dl (32.0-35.9); MEAN CELL VOLUME 87.4 fl (80-96); MEAN PLT VOLUME 11.4 fl (7.5-11.1); PLATELET COUNT 204 K/MM3 (134-434); POTASSIUM 4.1 mmol/L (3.5-5.1); RBC 4.93 M/mm3 (4.00-5.60); RDW 14.2 % (11.9-15.9); WHITE BLOOD COUNT 6.5 K/mm3 (4.0-10.0)
[2019-12-11 10:32] LABS: CALCIUM 9.1 mg/dL (8.5-10.1)
[2019-12-11 10:33] LABS: ALBUMIN 3.7 g/dl (3.4-5.0); BLOOD UREA NITROGEN 11.3 mg/dL (7-18)
[2019-12-11 10:36] LABS: CREATININE 0.8 mg/dL (0.55-1.3)
[2019-12-11 10:38] LABS: BILIRUBIN,TOTAL 0.6 mg/dL (0.2-1); TOT PROT 6.8 g/dl (6.4-8.2)
[2019-12-11] MEDS ORDERED: FLU VACCINE (FLULAVAL) PF 60 MCG/0.5 ML SYRINGE 2020-2021 IM ONE (12:00)
[2019-12-11] MEDS: MELATONIN 5 MG TABLETS PO SCH (22:25)
[2019-12-11] MEDS: THIAMINE HCL 100 MG TABLET (FP) PO SCH (22:25)
[2019-12-12] MEDS: hydrOXYzine PAMOATE 25 MG CAPSULE (FP) PO SCH ×3 (06:43→13:10)
[2019-12-12 09:17] VITALS: BP 109/64; PULSE 72; TEMP 96.9
[2019-12-12] MEDS: NICOTINE 7 MG/24 HOURS TOPICAL PATCH TD SCH (09:47)
[2019-12-12] MEDS: PRENATAL VITAMINS W/ FOLIC ACID TABLET (FP) PO SCH (09:47)
[2019-12-12] MEDS ORDERED: METHADONE HCL 10 MG TABLET (FOR DETOX USE ONLY) PO ONE (10:00)
--- NOTE | 2019-12-12 10:34 | PN ---
BHS COWS - Scale Resting Pulse: 0= [place] 80 or Below Sweatin= Chills/Flushing Restless Observation: 1= Difficult to Sit Still Pupil Size: 0= Normal to Room Light Bone or Joint Aches: 2= Severe Diffuse Aches Runny Nose/ Eye Tearin= None GI Upset > 30mins: 0= None Tremor Observation of Outstretched Hands: 0= None Yawning Observation: 2= >3x During Session Anxiety or Irritability: 2=Irritable/Anxious Goose Flesh Skin: 0=Smooth Skin COWS Score: 8 BHS Progress Note (SOAP) Subjective: c/o body aches, anxiety, irritability, and chills. Objective: 12/12/19 10:33 Vital Signs 12/12/19 08:47 Temperature 96.9 F L Pulse Rate 72 Respiratory 18 Rate Blood Pressure 109/64 Laboratory Last Values WBC 6.5 K/mm3 (4.0-10.0) 12/11/19 08:00 RBC 4.93 M/mm3 (4.00-5.60) 12/11/19 08:00 Hgb 13.9 GM/dL (11.7-16.9) 12/11/19 08:00 Hct 43.1 % (35.4-49) 12/11/19 08:00 MCV 87.4 fl (80-96) 12/11/19 08:00 MCH 28.1 pg (25.7-33.7) 12/11/19 08:00 MCHC 32.2 g/dl (32.0-35.9) 12/11/19 08:00 RDW 14.2 % (11.9-15.9) 12/11/19 08:00 Plt Count 204 K/MM3 (134-434) 12/11/19 08:00 MPV 11.4 fl (7.5-11.1) H 12/11/19 08:00 Sodium 139 mmol/L (136-145) 12/11/19 08:00 Potassium 4.1 mmol/L (3.5-5.1) 12/11/19 08:00 Chloride 104 mmol/L (98-107) 12/11/19 08:00 Carbon Dioxide 30 mmol/L (21-32) 12/11/19 08:00 Anion Gap 5 MMOL/L (8-16) L 12/11/19 08:00 BUN 11.3 mg/dL (7-18) 12/11/19 08:00 Creatinine 0.8 mg/dL (0.55-1.3) 12/11/19 08:00 Est GFR (CKD-EPI)AfAm 137.96 12/11/19 08:00 Est GFR (CKD-EPI)NonAf 119.03 12/11/19 08:00 Random Glucose 88 mg/dL (74-106) 12/11/19 08:00 Calcium 9.1 mg/dL (8.5-10.1) 12/11/19 08:00 Total Bilirubin 0.6 mg/dL (0.2-1) 12/11/19 08:00 AST 17 U/L (15-37) 12/11/19 08:00 ALT 29 U/L (13-61) 12/11/19 08:00 Alkaline Phosphatase 69 U/L (45-117) 12/11/19 08:00 Total Protein 6.8 g/dl (6.4-8.2) 12/11/19 08:00 Albumin 3.7 g/dl (3.4-5.0) 12/11/19 08:00 Syphilis Serology Non-reactive (NONREACTIVE) 12/10/19 10:36 COVID-19 (JUANI) Not detected (Not Detected) 12/10/19 10:30 Labs noted. Assessment: 12/12/19 10:33 Pt is AOX3, in no acute respiratory distress. Full ROM, and ambulating in the unit. Withdrawal symptoms. Plan: continue detox.
--- NOTE | 2019-12-12 13:00 | DS ---
[facility] Detox Discharge Summary Admission Date: 12/10/19 Discharge Date: 12/12/19 (Pt left AMA) - History Present History: Cocaine Dependence, Opioid Dependence Additional Comments: Pt left AMA. Pt did not complete the detox protocol. Pt states, "this isn't working for me, I'm bored". An attempt to let pt stay and complete the detox protocol failed. Pt is encouraged to follow-up with an outpatient CD program and also to follow-up with his pmd which he verbalized understanding. Pt is AOX3, in no acute respiratory distress, Full ROM, and ambulatory. Pertinent Past History: h/o heroin and cocaine use disorder. - Physical Exam Results Vital Signs: Vital Signs Temperature 96.9 F L 12/12/19 08:47 Pulse Rate 72 12/12/19 08:47 Respiratory Rate 18 12/12/19 08:47 Blood Pressure 109/64 12/12/19 08:47 O2 Sat by Pulse Oximetry (%) 98 12/11/19 12:39 Vital Signs 12/12/19 08:47 Temperature 96.9 F L Pulse Rate 72 Respiratory 18 Rate Blood Pressure 109/64 Laboratory Last Values WBC 6.5 K/mm3 (4.0-10.0) 12/11/19 08:00 RBC 4.93 M/mm3 (4.00-5.60) 12/11/19 08:00 Hgb 13.9 GM/dL (11.7-16.9) 12/11/19 08:00 Hct 43.1 % (35.4-49) 12/11/19 08:00 MCV 87.4 fl (80-96) 12/11/19 08:00 MCH 28.1 pg (25.7-33.7) 12/11/19 08:00 MCHC 32.2 g/dl (32.0-35.9) 12/11/19 08:00 RDW 14.2 % (11.9-15.9) 12/11/19 08:00 Plt Count 204 K/MM3 (134-434) 12/11/19 08:00 MPV 11.4 fl (7.5-11.1) H 12/11/19 08:00 Sodium 139 mmol/L (136-145) 12/11/19 08:00 Potassium 4.1 mmol/L (3.5-5.1) 12/11/19 08:00 Chloride 104 mmol/L (98-107) 12/11/19 08:00 Carbon Dioxide 30 mmol/L (21-32) 12/11/19 08:00 Anion Gap 5 MMOL/L (8-16) L 12/11/19 08:00 BUN 11.3 mg/dL (7-18) 12/11/19 08:00 Creatinine 0.8 mg/dL (0.55-1.3) 12/11/19 08:00 Est GFR (CKD-EPI)AfAm 137.96 12/11/19 08:00 Est GFR (CKD-EPI)NonAf 119.03 12/11/19 08:00 Random Glucose 88 mg/dL (74-106) 12/11/19 08:00 Calcium 9.1 mg/dL (8.5-10.1) 12/11/19 08:00 Total Bilirubin 0.6 mg/dL (0.2-1) 12/11/19 08:00 AST 17 U/L (15-37) 12/11/19 08:00 ALT 29 U/L (13-61) 12/11/19 08:00 Alkaline Phosphatase 69 U/L (45-117) 12/11/19 08:00 Total Protein 6.8 g/dl (6.4-8.2) 12/11/19 08:00 Albumin 3.7 g/dl (3.4-5.0) 12/11/19 08:00 Syphilis Serology Non-reactive (NONREACTIVE) 12/10/19 10:36 COVID-19 (JUANI) Not detected (Not Detected) 12/10/19 10:30 Labs noted. Pertinent Admission Physical Exam Findings: withdrawal symptoms. - Treatment Hospital Course: Detox Protocol Followed - Medication Discharge Medications: Ambulatory Orders NK [No Known Home Medication] 09/15/19 - Diagnosis (1) Opioid use disorder Current Visit: Yes Status: Chronic (2) Nicotine dependence Current Visit: Yes Status: Chronic Qualifiers: Nicotine product type: cigarettes Substance use status: uncomplicated Qualified Code(s): F17.210 - Nicotine dependence, cigarettes, uncomplicated (3) Opioid dependence with withdrawal Current Visit: Yes Status: Acute (4) Cocaine dependence Current Visit: No Status: Acute Qualifiers: Substance use status: in withdrawal Qualified Code(s): F14.23 - Cocaine dependence with withdrawal - AMA Did Patient Leave Against Medical Advice: Yes
[2019-12-13] MEDS ORDERED: METHADONE (DETOX) 10 MG, METHADONE (DETOX) 5 MG PO ONE (10:00)
[2019-12-14] MEDS ORDERED: METHADONE HCL 10 MG TABLET (FOR DETOX USE ONLY) PO ONE (10:00)
[2019-12-15] MEDS ORDERED: METHADONE HCL 5 MG TABLET (FOR DETOX USE ONLY) PO ONE (06:00)
== END 2019-12-12 12:50 | disposition left against medical advice (07) | DRG 770 ==
LOC: YASAS 09:12 → Y3N 10:15
PROVIDERS: ADMIT Allergy & Immunology; ATTEND Allergy & Immunology
PROC: HZ2ZZZZ Detoxification Services for Substance Abuse Treatment (ICD-10-PCS; principal; 2019-12-10)
DX: F11.23 Opioid dependence with withdrawal (principal); F14.20 Cocaine dependence, uncomplicated; F15.10 Other stimulant abuse, uncomplicated; F17.210 Nicotine dependence, cigarettes, uncomplicated; R63.4 Abnormal weight loss; Z68.1 Body mass index [BMI] 19.9 or less, adult; Z59.0 Homelessness
CPT/HCPCS: 36415; 80053; 85027; 86780; C9803; U0003

== ENCOUNTER 2020-02-15 16:45 | Inpatient (IN) | payer OTHER ==
[2020-02-15 20:03] VITALS: BMI 19.6
[2020-02-15] MEDS ORDERED: MAGNESIUM HYDROX 2400MG/30ML ORAL SUSPENSION 30 ML CUP PO PRN (20:12)
[2020-02-15] MEDS ORDERED: MAGNESIUM CITRATE 300 ML BOTTLE PO PRN (20:12)
[2020-02-15] MEDS ORDERED: diazePAM 5 MG TABLET PO ONE (20:12)
[2020-02-15] MEDS ORDERED: NICOTINE POLACRILEX 2 MG GUM BUC PRN (20:12)
[2020-02-15] MEDS ORDERED: IBUPROFEN 400 MG TABLET (FP) PO PRN (20:12)
[2020-02-15] MEDS ORDERED: MAG HYDROX/AL HYDROX/SIMETH 30 ML UNIT-DOSE CUP PO PRN (20:12)
[2020-02-15] MEDS ORDERED: methaDONE HCL 10 MG TABLET (FOR DETOX USE ONLY) PO ONE (20:12)
[2020-02-15] MEDS ORDERED: cloNIDine HCL 0.1 MG TABLET PO PRN (20:12)
[2020-02-15] MEDS ORDERED: ONDANSETRON *ODT* 4 MG TABLET SL PRN (20:12)
[2020-02-15] MEDS ORDERED: MENTHOL/PHENOL 1 EACH UD MM PRN (20:12)
[2020-02-15] MEDS ORDERED: ACETAMINOPHEN 325 MG TABLET (FP) PO PRN ×2 (20:12)
[2020-02-15] MEDS ORDERED: METHOCARBAMOL 500 MG TABLET PO PRN (20:12)
[2020-02-15] MEDS ORDERED: BISMUTH SUBSALICYLATE 524 MG/30 ML PO PRN (20:12)
[2020-02-15] MEDS: THIAMINE HCL 100 MG TABLET (FP) PO SCH (22:01)
[2020-02-15] MEDS: guaiFENesin 200 MG/10 ML 10 ML UNIT-DOSE CUPS PO SCH (22:01)
[2020-02-15] MEDS: diazePAM 5 MG TABLET PO SCH (22:45)
[2020-02-15] MEDS: MELATONIN 5 MG TABLETS PO SCH (22:45)
[2020-02-16] MEDS: guaiFENesin 200 MG/10 ML 10 ML UNIT-DOSE CUPS PO SCH ×4 (06:25→21:53)
[2020-02-16] MEDS: diazePAM 5 MG TABLET PO SCH ×4 (06:25→22:00)
[2020-02-16] MEDS ORDERED: methaDONE HCL 10 MG TABLET (FOR DETOX USE ONLY) ONE (09:33)
[2020-02-16] MEDS ORDERED: P-EPHED 60MG/TRIPROLIDI 2.5MG TABLET PO PRN (09:45)
[2020-02-16] MEDS ORDERED: SODIUM CHLORIDE NASAL SPRAY 44 ML BOTTLE NS PRN (09:45)
[2020-02-16] MEDS: PRENATAL VITAMINS W/ FOLIC ACID TABLET (FP) PO SCH (10:09)
[2020-02-16] MEDS: NICOTINE 7 MG/24 HOURS TOPICAL PATCH TD SCH (10:10)
[2020-02-16 10:52] LABS: HEMATOCRIT 40.8 % (35.4-49); HEMOGLOBIN 13.6 GM/dL (11.7-16.9); MCH 29.2 pg (25.7-33.7); MCHC 33.4 g/dl (32.0-35.9); MEAN CELL VOLUME 87.4 fl (80-96); MEAN PLT VOLUME 10.5 fl (7.5-11.1); PLATELET COUNT 212 K/MM3 (134-434); RBC 4.66 M/mm3 (4.00-5.60); RDW 13.8 % (11.9-15.9); WHITE BLOOD COUNT 9.7 K/mm3 (4.0-10.0)
[2020-02-16 11:01] LABS: CALCIUM 8.8 mg/dL (8.5-10.1)
[2020-02-16 11:03] LABS: ALBUMIN 3.6 g/dl (3.4-5.0); BLOOD UREA NITROGEN 15.9 mg/dL (7-18)
[2020-02-16 11:05] LABS: CREATININE 0.9 mg/dL (0.55-1.3)
[2020-02-16 11:07] LABS: TOT PROT 6.4 g/dl (6.4-8.2)
[2020-02-16] MEDS: THIAMINE HCL 100 MG TABLET (FP) PO SCH (21:52)
[2020-02-16] MEDS: MELATONIN 5 MG TABLETS PO SCH (23:02)
[2020-02-17] MEDS: guaiFENesin 200 MG/10 ML 10 ML UNIT-DOSE CUPS PO SCH ×3 (05:08→15:11)
[2020-02-17] MEDS: diazePAM 5 MG TABLET PO SCH ×3 (07:00→22:27)
[2020-02-17] MEDS ORDERED: methaDONE HCL 10 MG TABLET (FOR DETOX USE ONLY) PO ONE (10:00)
[2020-02-17] MEDS: NICOTINE 7 MG/24 HOURS TOPICAL PATCH TD SCH (10:31)
[2020-02-17] MEDS: PRENATAL VITAMINS W/ FOLIC ACID TABLET (FP) PO SCH (10:31)
[2020-02-17] MEDS: diazePAM 5 MG TABLET PO PRN (10:38)
[2020-02-17] MEDS ORDERED: MASKS NR ONE (20:37)
[2020-02-17] MEDS: THIAMINE HCL 100 MG TABLET (FP) PO SCH (22:27)
[2020-02-17] MEDS: MELATONIN 5 MG TABLETS PO SCH (22:27)
[2020-02-18] MEDS: diazePAM 5 MG TABLET PO SCH ×2 (05:41→17:59)
[2020-02-18] MEDS ORDERED: methaDONE HCL 10 MG TABLET (FOR DETOX USE ONLY) ONE (09:25)
[2020-02-18] MEDS: NICOTINE 7 MG/24 HOURS TOPICAL PATCH TD SCH (10:32)
[2020-02-18] MEDS: PRENATAL VITAMINS W/ FOLIC ACID TABLET (FP) PO SCH (10:32)
[2020-02-18] MEDS: diazePAM 5 MG TABLET PO PRN ×3 (10:33→21:43)
[2020-02-18] MEDS: THIAMINE HCL 100 MG TABLET (FP) PO SCH (21:42)
[2020-02-18] MEDS: MELATONIN 5 MG TABLETS PO SCH (21:43)
[2020-02-19] MEDS ORDERED: diazePAM 5 MG TABLET PO ONE (06:00)
[2020-02-19] MEDS ORDERED: methaDONE HCL 10 MG TABLET (FOR DETOX USE ONLY) PO ONE (10:00)
[2020-02-19] MEDS: PRENATAL VITAMINS W/ FOLIC ACID TABLET (FP) PO SCH (10:07)
[2020-02-19] MEDS: NICOTINE 7 MG/24 HOURS TOPICAL PATCH TD SCH (10:07)
[2020-02-19] MEDS: diazePAM 5 MG TABLET PO PRN (10:10)
[2020-02-19 11:00] VITALS: BP 141/73; PULSE 81; TEMP 97.3
[2020-02-22 17:48] LABS: HIV INTERPRETATION NEGATIVE (NEGATIVE)
== END 2020-02-19 12:31 | disposition home or self-care (01) | DRG 773 ==
LOC: YASAS 16:45 → Y6N 20:57
PROVIDERS: ADMIT Allergy & Immunology; ATTEND Allergy & Immunology
PROC: HZ2ZZZZ Detoxification Services for Substance Abuse Treatment (ICD-10-PCS; principal; 2020-02-15)
DX: F11.23 Opioid dependence with withdrawal (principal); F14.20 Cocaine dependence, uncomplicated; F13.10 Sedative, hypnotic or anxiolytic abuse, uncomplicated; F15.10 Other stimulant abuse, uncomplicated; F17.210 Nicotine dependence, cigarettes, uncomplicated; F19.282 Other psychoactive substance dependence with psychoactive substance-induced sleep disorder; F41.9 Anxiety disorder, unspecified; H55.00 Unspecified nystagmus; R63.6 Underweight; Z68.1 Body mass index [BMI] 19.9 or less, adult
CPT/HCPCS: 36415; 80053; 85027; 86780; 87389; C9803; U0003

== ENCOUNTER 2020-03-11 13:55 | Inpatient (IN) | payer OTHER ==
[2020-03-11 17:20] VITALS: BMI 19.3
[2020-03-11] MEDS ORDERED: IBUPROFEN 400 MG TABLET (FP) PO PRN (17:45)
[2020-03-11] MEDS ORDERED: ONDANSETRON *ODT* 4 MG TABLET SL PRN (17:45)
[2020-03-11] MEDS ORDERED: METHOCARBAMOL 500 MG TABLET PO PRN (17:45)
[2020-03-11] MEDS ORDERED: NICOTINE POLACRILEX 2 MG GUM BUC PRN (17:45)
[2020-03-11] MEDS ORDERED: MENTHOL/PHENOL 1 EACH UD MM PRN (17:45)
[2020-03-11] MEDS ORDERED: BISMUTH SUBSALICYLATE 524 MG/30 ML UD PO PRN (17:45)
[2020-03-11] MEDS ORDERED: MAG HYDROX/AL HYDROX/SIMETH 30 ML UNIT-DOSE CUP PO PRN (17:45)
[2020-03-11] MEDS ORDERED: METHADONE HCL 10 MG TABLET (FOR DETOX USE ONLY) PO ONE (17:45)
[2020-03-11] MEDS ORDERED: MAGNESIUM HYDROX 2400MG/30ML ORAL SUSPENSION 30 ML CUP PO PRN (17:45)
[2020-03-11] MEDS ORDERED: MELATONIN 5 MG TABLETS PO PRN (17:45)
[2020-03-11] MEDS ORDERED: MAGNESIUM CITRATE 300 ML BOTTLE PO PRN (17:45)
[2020-03-11] MEDS ORDERED: cloNIDine HCL 0.1 MG TABLET PO PRN (17:45)
[2020-03-11] MEDS ORDERED: ACETAMINOPHEN 325 MG TABLET (FP) PO PRN ×2 (17:45)
[2020-03-11] MEDS: diazePAM 5 MG TABLET PO PRN (22:04)
[2020-03-11] MEDS: THIAMINE HCL 100 MG TABLET (FP) PO SCH (22:04)
[2020-03-12] MEDS ORDERED: METHADONE HCL 5 MG TABLET (FOR DETOX USE ONLY) ONE (08:59)
[2020-03-12] MEDS ORDERED: METHADONE HCL 10 MG TABLET (FOR DETOX USE ONLY) ONE (08:59)
[2020-03-12] MEDS ORDERED: METHADONE (DETOX) 20 MG, METHADONE (DETOX) 5 MG PO ONE (10:00)
[2020-03-12] MEDS: PRENATAL VITAMINS W/ FOLIC ACID TABLET (FP) PO SCH (10:21)
[2020-03-12] MEDS: NICOTINE 14 MG/24 HOURS TOPICAL PATCH TD SCH (10:22)
[2020-03-12] MEDS: diazePAM 5 MG TABLET PO PRN ×2 (10:24→18:30)
[2020-03-12 13:28] LABS: HEMATOCRIT 39.6 % (35.4-49); HEMOGLOBIN 13.1 GM/dL (11.7-16.9); MCH 29.2 pg (25.7-33.7); MEAN CELL VOLUME 88.6 fl (80-96); MEAN PLT VOLUME 10.7 fl (7.5-11.1); PLATELET COUNT 228 K/MM3 (134-434); RBC 4.47 M/mm3 (4.00-5.60); RDW 14.1 % (11.9-15.9)
[2020-03-12 13:34] LABS: ALBUMIN 3.5 g/dl (3.4-5.0); BLOOD UREA NITROGEN 12.2 mg/dL (7-18)
[2020-03-12 13:35] LABS: CALCIUM 9.1 mg/dL (8.5-10.1)
[2020-03-12 13:37] LABS: CREATININE 0.8 mg/dL (0.55-1.3)
[2020-03-12 13:39] LABS: BILIRUBIN,TOTAL 0.7 mg/dL (0.2-1); TOT PROT 6.6 g/dl (6.4-8.2)
[2020-03-12] MEDS: guaiFENesin 200 MG/10 ML 10 ML UNIT-DOSE CUPS PO PRN (17:35)
[2020-03-12] MEDS: THIAMINE HCL 100 MG TABLET (FP) PO SCH (22:33)
[2020-03-13] MEDS ORDERED: METHADONE HCL 10 MG TABLET (FOR DETOX USE ONLY) PO ONE (10:00)
[2020-03-13] MEDS: NICOTINE 14 MG/24 HOURS TOPICAL PATCH TD SCH (10:03)
[2020-03-13] MEDS: PRENATAL VITAMINS W/ FOLIC ACID TABLET (FP) PO SCH (10:03)
[2020-03-13] MEDS: diazePAM 5 MG TABLET PO PRN ×3 (10:05→22:05)
[2020-03-13] MEDS: guaiFENesin 200 MG/10 ML 10 ML UNIT-DOSE CUPS PO PRN (14:49)
[2020-03-13] MEDS: THIAMINE HCL 100 MG TABLET (FP) PO SCH (22:05)
[2020-03-14] MEDS ORDERED: METHADONE HCL 5 MG TABLET (FOR DETOX USE ONLY) ONE (08:32)
[2020-03-14] MEDS ORDERED: METHADONE HCL 10 MG TABLET (FOR DETOX USE ONLY) ONE (08:32)
[2020-03-14] MEDS: NICOTINE 14 MG/24 HOURS TOPICAL PATCH TD SCH (09:10)
[2020-03-14] MEDS: PRENATAL VITAMINS W/ FOLIC ACID TABLET (FP) PO SCH (09:10)
[2020-03-14] MEDS: guaiFENesin 200 MG/10 ML 10 ML UNIT-DOSE CUPS PO PRN ×2 (09:12→17:18)
[2020-03-14] MEDS: diazePAM 5 MG TABLET PO PRN ×2 (09:13→17:17)
[2020-03-14] MEDS ORDERED: METHADONE (DETOX) 10 MG, METHADONE (DETOX) 5 MG PO ONE (10:00)
[2020-03-14] MEDS: THIAMINE HCL 100 MG TABLET (FP) PO SCH (22:57)
[2020-03-15] MEDS ORDERED: METHADONE HCL 10 MG TABLET (FOR DETOX USE ONLY) PO ONE ×2 (06:00→10:00)
[2020-03-15 06:55] VITALS: BP 105/64; PULSE 77; TEMP 97.5
[2020-03-16] MEDS ORDERED: METHADONE HCL 5 MG TABLET (FOR DETOX USE ONLY) PO ONE (06:00)
== END 2020-03-15 08:50 | disposition home or self-care (01) | DRG 773 ==
LOC: YASAS 13:55 → Y3N 17:00
PROVIDERS: ADMIT Allergy & Immunology; ATTEND Allergy & Immunology
PROC: HZ2ZZZZ Detoxification Services for Substance Abuse Treatment (ICD-10-PCS; principal; 2020-03-11)
DX: F11.23 Opioid dependence with withdrawal (principal); F10.20 Alcohol dependence, uncomplicated; F14.20 Cocaine dependence, uncomplicated; F17.210 Nicotine dependence, cigarettes, uncomplicated; R63.6 Underweight; Z68.1 Body mass index [BMI] 19.9 or less, adult
CPT/HCPCS: 36415; 80053; 85027; 86780; C9803; J0735; U0003

== ENCOUNTER 2020-04-02 13:05 | Inpatient (IN) | payer OTHER ==
[2020-04-02 18:20] VITALS: BMI 20.3
[2020-04-02] MEDS ORDERED: MENTHOL/PHENOL 1 EACH UD MM PRN (18:59)
[2020-04-02] MEDS ORDERED: ACETAMINOPHEN 325 MG TABLET (FP) PO PRN ×2 (18:59)
[2020-04-02] MEDS ORDERED: MAGNESIUM CITRATE 300 ML BOTTLE PO PRN (18:59)
[2020-04-02] MEDS ORDERED: MAG HYDROX/AL HYDROX/SIMETH 30 ML UNIT-DOSE CUP PO PRN (18:59)
[2020-04-02] MEDS ORDERED: IBUPROFEN 400 MG TABLET (FP) PO PRN (18:59)
[2020-04-02] MEDS ORDERED: cloNIDine HCL 0.1 MG TABLET PO PRN (18:59)
[2020-04-02] MEDS ORDERED: METHOCARBAMOL 500 MG TABLET PO PRN (18:59)
[2020-04-02] MEDS ORDERED: NICOTINE POLACRILEX 2 MG GUM BUC PRN (18:59)
[2020-04-02] MEDS ORDERED: ONDANSETRON *ODT* 4 MG TABLET SL PRN (18:59)
[2020-04-02] MEDS ORDERED: BISMUTH SUBSALICYLATE 524 MG/30 ML UD PO PRN (18:59)
[2020-04-02] MEDS ORDERED: MAGNESIUM HYDROX 2400MG/30ML ORAL SUSPENSION 30 ML CUP PO PRN (18:59)
[2020-04-02] MEDS ORDERED: METHADONE HCL 10 MG TABLET (FOR DETOX USE ONLY) PO ONE (20:00)
[2020-04-02] MEDS ORDERED: TRIMETHOBENZAMIDE HCL 200MG/2ML INJ IM ONE (20:28)
[2020-04-02] MEDS: hydrOXYzine PAMOATE 25 MG CAPSULE (FP) PO SCH (23:17)
[2020-04-02] MEDS: diazePAM 5 MG TABLET PO PRN (23:17)
[2020-04-02] MEDS: MELATONIN 5 MG TABLETS PO SCH (23:17)
[2020-04-02] MEDS: THIAMINE HCL 100 MG TABLET (FP) PO SCH (23:17)
[2020-04-03] MEDS: hydrOXYzine PAMOATE 25 MG CAPSULE (FP) PO SCH (06:02)
[2020-04-03] MEDS ORDERED: METHADONE HCL 10 MG TABLET (FOR DETOX USE ONLY) ONE (09:16)
[2020-04-03] MEDS ORDERED: METHADONE HCL 5 MG TABLET (FOR DETOX USE ONLY) ONE (09:16)
[2020-04-03] MEDS ORDERED: hydrOXYzine PAMOATE 25 MG CAPSULE (FP) PO PRN (09:29)
[2020-04-03] MEDS ORDERED: DICYCLOMINE HCL 10 MG CAPSULE PO ONE (09:30)
[2020-04-03] MEDS: PRENATAL VITAMINS W/ FOLIC ACID TABLET (FP) PO SCH (10:00)
[2020-04-03] MEDS ORDERED: METHADONE (DETOX) 20 MG, METHADONE (DETOX) 5 MG PO ONE (10:00)
[2020-04-03] MEDS: FAMOTIDINE 20 MG TABLET PO SCH ×2 (10:00→23:27)
[2020-04-03] MEDS: diazePAM 5 MG TABLET PO PRN ×3 (10:02→20:44)
[2020-04-03 12:42] LABS: HEMATOCRIT 41.3 % (35.4-49); HEMOGLOBIN 13.6 GM/dL (11.7-16.9); MCH 29.2 pg (25.7-33.7); MEAN CELL VOLUME 88.6 fl (80-96); MEAN PLT VOLUME 10.7 fl (7.5-11.1); PLATELET COUNT 222 K/MM3 (134-434); RBC 4.66 M/mm3 (4.00-5.60); RDW 13.7 % (11.9-15.9); WHITE BLOOD COUNT 8.1 K/mm3 (4.0-10.0)
[2020-04-03 12:51] LABS: POTASSIUM 3.5 mmol/L (3.5-5.1)
[2020-04-03 12:59] LABS: BLOOD UREA NITROGEN 11.5 mg/dL (7-18)
[2020-04-03 13:00] LABS: ALBUMIN 3.7 g/dl (3.4-5.0); CREATININE 1.1 mg/dL (0.55-1.3)
[2020-04-03 13:01] LABS: BILIRUBIN,TOTAL 0.3 mg/dL (0.2-1); CALCIUM 9.2 mg/dL (8.5-10.1); TOT PROT 6.9 g/dl (6.4-8.2)
[2020-04-03] MEDS: MELATONIN 5 MG TABLETS PO SCH (23:27)
[2020-04-03] MEDS: THIAMINE HCL 100 MG TABLET (FP) PO SCH (23:27)
[2020-04-04] MEDS ORDERED: METHADONE HCL 10 MG TABLET (FOR DETOX USE ONLY) PO ONE (10:00)
[2020-04-04] MEDS: diazePAM 5 MG TABLET PO PRN ×4 (10:08→22:14)
[2020-04-04] MEDS: PRENATAL VITAMINS W/ FOLIC ACID TABLET (FP) PO SCH (10:10)
[2020-04-04] MEDS: FAMOTIDINE 20 MG TABLET PO SCH ×2 (10:10→22:15)
[2020-04-04] MEDS: THIAMINE HCL 100 MG TABLET (FP) PO SCH (22:15)
[2020-04-04] MEDS: MELATONIN 5 MG TABLETS PO SCH (22:15)
[2020-04-05] MEDS: diazePAM 5 MG TABLET PO PRN ×3 (06:03→17:34)
[2020-04-05] MEDS ORDERED: METHADONE HCL 5 MG TABLET (FOR DETOX USE ONLY) ONE (09:45)
[2020-04-05] MEDS ORDERED: METHADONE HCL 10 MG TABLET (FOR DETOX USE ONLY) ONE (09:46)
[2020-04-05] MEDS ORDERED: METHADONE (DETOX) 10 MG, METHADONE (DETOX) 5 MG PO ONE (10:00)
[2020-04-05] MEDS: FAMOTIDINE 20 MG TABLET PO SCH (11:34)
[2020-04-05] MEDS: PRENATAL VITAMINS W/ FOLIC ACID TABLET (FP) PO SCH (11:35)
[2020-04-06] MEDS: FAMOTIDINE 20 MG TABLET PO SCH ×2 (01:04→10:48)
[2020-04-06] MEDS: MELATONIN 5 MG TABLETS PO SCH (01:04)
[2020-04-06] MEDS: THIAMINE HCL 100 MG TABLET (FP) PO SCH (01:05)
[2020-04-06 09:47] VITALS: BP 111/50; PULSE 96; TEMP 98
[2020-04-06] MEDS ORDERED: METHADONE HCL 10 MG TABLET (FOR DETOX USE ONLY) PO ONE (10:00)
[2020-04-06] MEDS: PRENATAL VITAMINS W/ FOLIC ACID TABLET (FP) PO SCH (10:47)
[2020-04-07] MEDS ORDERED: METHADONE HCL 5 MG TABLET (FOR DETOX USE ONLY) PO ONE (06:00)
== END 2020-04-06 12:20 | disposition home or self-care (01) | DRG 773 ==
LOC: YASAS 13:05 → Y6N 18:49
PROVIDERS: ADMIT Allergy & Immunology; ATTEND Allergy & Immunology
PROC: HZ2ZZZZ Detoxification Services for Substance Abuse Treatment (ICD-10-PCS; principal; 2020-04-02)
DX: F11.23 Opioid dependence with withdrawal (principal); F14.20 Cocaine dependence, uncomplicated; F17.210 Nicotine dependence, cigarettes, uncomplicated; E86.0 Dehydration; R63.4 Abnormal weight loss; Z68.20 Body mass index [BMI] 20.0-20.9, adult
CPT/HCPCS: 36415; 80053; 85027; 86780; C9803; Q0162; U0003

== ENCOUNTER 2020-05-09 09:48 | Inpatient (IN) | payer OTHER ==
[2020-05-09 10:22] VITALS: BMI 20.5
[2020-05-09] MEDS ORDERED: NALOXONE (NARCAN) HCL 4 MG/0.1 ML SPRAY NS PRN (10:57)
[2020-05-09] MEDS ORDERED: MENTHOL/PHENOL 1 EACH UD MM PRN (10:58)
[2020-05-09] MEDS ORDERED: IBUPROFEN 400 MG TABLET (FP) PO PRN (10:58)
[2020-05-09] MEDS ORDERED: MAGNESIUM HYDROX 2400MG/30ML ORAL SUSPENSION 30 ML CUP PO PRN (10:58)
[2020-05-09] MEDS ORDERED: cloNIDine HCL 0.1 MG TABLET PO PRN (10:58)
[2020-05-09] MEDS ORDERED: METHOCARBAMOL 500 MG TABLET PO PRN (10:58)
[2020-05-09] MEDS ORDERED: BISMUTH SUBSALICYLATE 524 MG/30 ML UD PO PRN (10:58)
[2020-05-09] MEDS ORDERED: NICOTINE POLACRILEX 2 MG GUM BUC PRN (10:58)
[2020-05-09] MEDS ORDERED: ACETAMINOPHEN 325 MG TABLET (FP) PO PRN ×2 (10:58)
[2020-05-09] MEDS ORDERED: MAG HYDROX/AL HYDROX/SIMETH 30 ML UNIT-DOSE CUP PO PRN (10:58)
[2020-05-09] MEDS ORDERED: ONDANSETRON *ODT* 4 MG TABLET SL PRN (10:58)
[2020-05-09] MEDS ORDERED: MAGNESIUM CITRATE 300 ML BOTTLE PO PRN (10:58)
[2020-05-09] MEDS ORDERED: METHADONE HCL 10 MG TABLET (FOR DETOX USE ONLY) PO ONE (13:00)
[2020-05-09 13:27] LABS: HEMATOCRIT 39.8 % (35.4-49); HEMOGLOBIN 13.2 GM/dL (11.7-16.9); MCH 29.2 pg (25.7-33.7); MCHC 33.2 g/dl (32.0-35.9); MEAN CELL VOLUME 88.1 fl (80-96); MEAN PLT VOLUME 10.8 fl (7.5-11.1); PLATELET COUNT 207 K/MM3 (134-434); RBC 4.52 M/mm3 (4.00-5.60); RDW 13.1 % (11.9-15.9); WHITE BLOOD COUNT 9.2 K/mm3 (4.0-10.0)
[2020-05-09 13:36] LABS: POTASSIUM 4.2 mmol/L (3.5-5.1)
[2020-05-09 13:39] LABS: BLOOD UREA NITROGEN 19.5 mg/dL (7-18); CALCIUM 9.4 mg/dL (8.5-10.1)
[2020-05-09 13:43] LABS: BILIRUBIN,TOTAL 0.4 mg/dL (0.2-1); TOT PROT 7.4 g/dl (6.4-8.2)
[2020-05-09] MEDS: PRENATAL VITAMINS W/ FOLIC ACID TABLET (FP) PO SCH (14:06)
[2020-05-09] MEDS: hydrOXYzine PAMOATE 25 MG CAPSULE (FP) PO SCH ×3 (14:06→23:07)
[2020-05-09] MEDS: NICOTINE 7 MG/24 HOURS TOPICAL PATCH TD SCH (14:08)
[2020-05-09 14:37] LABS: HIV INTERPRETATION NEGATIVE (NEGATIVE)
[2020-05-09] MEDS: diazePAM 5 MG TABLET PO PRN (19:17)
[2020-05-09] MEDS ORDERED: SUVOREXANT 10 MG TABLET PO PRN (22:00)
[2020-05-09] MEDS ORDERED: MELATONIN 5 MG TABLETS PO SCH (22:00)
[2020-05-09] MEDS ORDERED: THIAMINE HCL 100 MG TABLET (FP) PO SCH (22:00)
[2020-05-10] MEDS: hydrOXYzine PAMOATE 25 MG CAPSULE (FP) PO SCH ×3 (07:04→13:00)
[2020-05-10] MEDS ORDERED: METHADONE HCL 10 MG TABLET (FOR DETOX USE ONLY) ONE (09:58)
[2020-05-10] MEDS ORDERED: METHADONE HCL 5 MG TABLET (FOR DETOX USE ONLY) ONE (09:58)
[2020-05-10] MEDS ORDERED: METHADONE (DETOX) 20 MG, METHADONE (DETOX) 5 MG PO ONE (10:00)
[2020-05-10] MEDS: diazePAM 5 MG TABLET PO PRN (10:34)
[2020-05-10] MEDS: PRENATAL VITAMINS W/ FOLIC ACID TABLET (FP) PO SCH (10:35)
[2020-05-10] MEDS: NICOTINE 7 MG/24 HOURS TOPICAL PATCH TD SCH (10:35)
[2020-05-10 13:14] VITALS: BP 108/60; PULSE 78; TEMP 97.3
[2020-05-11] MEDS ORDERED: METHADONE HCL 10 MG TABLET (FOR DETOX USE ONLY) PO ONE (10:00)
[2020-05-12] MEDS ORDERED: METHADONE (DETOX) 10 MG, METHADONE (DETOX) 5 MG PO ONE (10:00)
[2020-05-13] MEDS ORDERED: METHADONE HCL 10 MG TABLET (FOR DETOX USE ONLY) PO ONE (10:00)
[2020-05-14] MEDS ORDERED: METHADONE HCL 5 MG TABLET (FOR DETOX USE ONLY) PO ONE (06:00)
== END 2020-05-10 14:10 | disposition left against medical advice (07) | DRG 770 ==
LOC: YASAS 09:48 → Y3N 12:46
PROVIDERS: ADMIT Allergy & Immunology; ATTEND Allergy & Immunology
PROC: HZ2ZZZZ Detoxification Services for Substance Abuse Treatment (ICD-10-PCS; principal; 2020-05-09)
DX: F11.23 Opioid dependence with withdrawal (principal); F14.20 Cocaine dependence, uncomplicated; F15.10 Other stimulant abuse, uncomplicated; F17.210 Nicotine dependence, cigarettes, uncomplicated; F19.282 Other psychoactive substance dependence with psychoactive substance-induced sleep disorder; F41.9 Anxiety disorder, unspecified
CPT/HCPCS: 36415; 80053; 85027; 86780; 86803; 87389; C9803; U0003

== ENCOUNTER 2020-06-16 11:27 | Inpatient (IN) | payer OTHER ==
[2020-06-16 12:16] VITALS: BMI 19.1
[2020-06-16] MEDS ORDERED: IBUPROFEN 400 MG TABLET (FP) PO PRN (13:27)
[2020-06-16] MEDS ORDERED: MAGNESIUM HYDROX 2400MG/30ML ORAL SUSPENSION 30 ML CUP PO PRN (13:27)
[2020-06-16] MEDS ORDERED: ONDANSETRON *ODT* 4 MG TABLET SL PRN (13:27)
[2020-06-16] MEDS ORDERED: ACETAMINOPHEN 325 MG TABLET (FP) PO PRN ×2 (13:27)
[2020-06-16] MEDS ORDERED: METHOCARBAMOL 500 MG TABLET PO PRN (13:27)
[2020-06-16] MEDS ORDERED: cloNIDine HCL 0.1 MG TABLET PO PRN (13:27)
[2020-06-16] MEDS ORDERED: BISMUTH SUBSALICYLATE 262 MG/15 ML BTL PO PRN (13:27)
[2020-06-16] MEDS ORDERED: METHADONE HCL 10 MG TABLET (FOR DETOX USE ONLY) PO ONE (13:27)
[2020-06-16] MEDS ORDERED: NICOTINE POLACRILEX 2 MG GUM BUC PRN (13:27)
[2020-06-16] MEDS ORDERED: MAGNESIUM CITRATE 300 ML BOTTLE PO PRN (13:27)
[2020-06-16] MEDS ORDERED: MENTHOL/PHENOL 1 EACH UD MM PRN (13:27)
[2020-06-16] MEDS ORDERED: MAG HYDROX/AL HYDROX/SIMETH 30 ML UNIT-DOSE CUP PO PRN (13:27)
[2020-06-16] MEDS ORDERED: diazePAM 2 MG TABLET PO PRN (13:44)
[2020-06-16] MEDS ORDERED: diazePAM 5 MG TABLET PO PRN (14:19)
[2020-06-16] MEDS: PRENATAL VITAMINS W/ FOLIC ACID TABLET (FP) PO SCH (14:42)
[2020-06-16] MEDS: hydrOXYzine PAMOATE 25 MG CAPSULE (FP) PO SCH ×3 (14:42→22:25)
[2020-06-16] MEDS: NICOTINE 14 MG/24 HOURS TOPICAL PATCH TD SCH (14:42)
[2020-06-16 16:59] LABS: HEMATOCRIT 41.5 % (35.4-49); HEMOGLOBIN 13.8 GM/dL (11.7-16.9); MCHC 33.2 g/dl (32.0-35.9); MEAN CELL VOLUME 87.3 fl (80-96); MEAN PLT VOLUME 10.2 fl (7.5-11.1); PLATELET COUNT 214 K/MM3 (134-434); RBC 4.75 M/mm3 (4.00-5.60); RDW 13.7 % (11.9-15.9)
[2020-06-16 17:15] LABS: BLOOD UREA NITROGEN 18.1 mg/dL (7-18); CALCIUM 9.2 mg/dL (8.5-10.1)
[2020-06-16 17:17] LABS: ALBUMIN 4.1 g/dl (3.4-5.0)
[2020-06-16 17:20] LABS: BILIRUBIN,TOTAL 0.5 mg/dL (0.2-1); TOT PROT 7.4 g/dl (6.4-8.2)
[2020-06-16 18:13] LABS: HIV INTERPRETATION NEGATIVE (NEGATIVE)
[2020-06-16] MEDS ORDERED: MELATONIN 5 MG TABLETS PO SCH (22:00)
[2020-06-16] MEDS ORDERED: SUVOREXANT 10 MG TABLET PO PRN (22:00)
[2020-06-16] MEDS: THIAMINE HCL 100 MG TABLET (FP) PO SCH (22:25)
[2020-06-17] MEDS: hydrOXYzine PAMOATE 25 MG CAPSULE (FP) PO SCH ×5 (05:52→22:31)
[2020-06-17] MEDS ORDERED: METHADONE HCL 5 MG TABLET (FOR DETOX USE ONLY) ONE (09:04)
[2020-06-17] MEDS ORDERED: METHADONE HCL 10 MG TABLET (FOR DETOX USE ONLY) ONE (09:05)
[2020-06-17] MEDS ORDERED: METHADONE (DETOX) 20 MG, METHADONE (DETOX) 5 MG PO ONE (10:00)
[2020-06-17] MEDS: NICOTINE 14 MG/24 HOURS TOPICAL PATCH TD SCH (10:08)
[2020-06-17] MEDS: diazePAM 5 MG TABLET PO PRN ×3 (10:10→20:00)
[2020-06-17] MEDS: PRENATAL VITAMINS W/ FOLIC ACID TABLET (FP) PO SCH (10:11)
[2020-06-17] MEDS: THIAMINE HCL 100 MG TABLET (FP) PO SCH (22:31)
[2020-06-18] MEDS: hydrOXYzine PAMOATE 25 MG CAPSULE (FP) PO SCH ×5 (06:03→22:43)
[2020-06-18] MEDS: diazePAM 5 MG TABLET PO PRN ×4 (07:03→20:31)
[2020-06-18] MEDS ORDERED: METHADONE HCL 10 MG TABLET (FOR DETOX USE ONLY) PO ONE (10:00)
[2020-06-18] MEDS: PRENATAL VITAMINS W/ FOLIC ACID TABLET (FP) PO SCH (10:45)
[2020-06-18] MEDS: NICOTINE 14 MG/24 HOURS TOPICAL PATCH TD SCH (10:45)
[2020-06-18] MEDS: THIAMINE HCL 100 MG TABLET (FP) PO SCH (22:43)
[2020-06-19] MEDS: hydrOXYzine PAMOATE 25 MG CAPSULE (FP) PO SCH ×4 (06:21→17:40)
[2020-06-19] MEDS: diazePAM 5 MG TABLET PO PRN ×3 (07:48→17:37)
[2020-06-19 08:05] LABS: SARS-CoV-2 NAA Not Detected (Not Detected)
[2020-06-19] MEDS ORDERED: METHADONE HCL 10 MG TABLET (FOR DETOX USE ONLY) ONE (08:53)
[2020-06-19] MEDS ORDERED: METHADONE HCL 5 MG TABLET (FOR DETOX USE ONLY) ONE (08:53)
[2020-06-19] MEDS ORDERED: METHADONE (DETOX) 10 MG, METHADONE (DETOX) 5 MG PO ONE (10:00)
[2020-06-19] MEDS: PRENATAL VITAMINS W/ FOLIC ACID TABLET (FP) PO SCH (10:12)
[2020-06-19] MEDS: NICOTINE 14 MG/24 HOURS TOPICAL PATCH TD SCH (10:12)
[2020-06-19 19:36] VITALS: BP 121/58; PULSE 85; TEMP 98.2
[2020-06-20] MEDS ORDERED: METHADONE HCL 10 MG TABLET (FOR DETOX USE ONLY) PO ONE (10:00)
[2020-06-21] MEDS ORDERED: METHADONE HCL 5 MG TABLET (FOR DETOX USE ONLY) PO ONE (06:00)
== END 2020-06-19 20:21 | disposition left against medical advice (07) | DRG 770 ==
LOC: YASAS 11:27 → Y6N 13:10
PROVIDERS: ADMIT Allergy & Immunology; ATTEND Allergy & Immunology
PROC: HZ2ZZZZ Detoxification Services for Substance Abuse Treatment (ICD-10-PCS; principal; 2020-06-16)
DX: F11.23 Opioid dependence with withdrawal (principal); F13.20 Sedative, hypnotic or anxiolytic dependence, uncomplicated; F17.210 Nicotine dependence, cigarettes, uncomplicated; F41.9 Anxiety disorder, unspecified; R73.9 Hyperglycemia, unspecified
CPT/HCPCS: 36415; 80053; 82947; 85027; 86780; 86803; 87389; C9803; U0003; U0005

== ENCOUNTER 2020-07-21 18:06 | Inpatient (IN) | payer OTHER ==
[2020-07-21] MEDS ORDERED: MENTHOL/PHENOL 1 EACH UD MM PRN (20:29)
[2020-07-21] MEDS ORDERED: MAGNESIUM HYDROX 2400MG/30ML ORAL SUSPENSION 30 ML CUP PO PRN (20:29)
[2020-07-21] MEDS ORDERED: IBUPROFEN 400 MG TABLET (FP) PO PRN (20:29)
[2020-07-21] MEDS ORDERED: BISMUTH SUBSALICYLATE 524 MG/30 ML PO PRN (20:29)
[2020-07-21] MEDS ORDERED: MAGNESIUM CITRATE 300 ML BOTTLE PO PRN (20:29)
[2020-07-21] MEDS ORDERED: NICOTINE POLACRILEX 2 MG GUM BUC PRN (20:29)
[2020-07-21] MEDS ORDERED: ONDANSETRON *ODT* 4 MG TABLET SL PRN (20:29)
[2020-07-21] MEDS ORDERED: ACETAMINOPHEN 325 MG TABLET (FP) PO PRN ×2 (20:29)
[2020-07-21] MEDS ORDERED: hydrOXYzine PAMOATE 25 MG CAPSULE (FP) PO PRN (20:29)
[2020-07-21] MEDS ORDERED: MAG HYDROX/AL HYDROX/SIMETH 30 ML UNIT-DOSE CUP PO PRN (20:29)
[2020-07-21] MEDS ORDERED: METHOCARBAMOL 500 MG TABLET PO PRN (20:29)
[2020-07-21] MEDS ORDERED: cloNIDine HCL 0.1 MG TABLET PO PRN (20:31)
[2020-07-21 21:23] VITALS: BMI 20.6
[2020-07-21] MEDS ORDERED: METHADONE HCL 10 MG TABLET (FOR DETOX USE ONLY) PO ONE (22:00)
[2020-07-21] MEDS ORDERED: METHADONE HCL 10 MG TABLET (FOR DETOX USE ONLY) ONE (23:56)
[2020-07-21] MEDS: THIAMINE HCL 100 MG TABLET (FP) PO SCH (23:57)
[2020-07-21] MEDS: MELATONIN 5 MG TABLETS PO SCH (23:57)
[2020-07-22] MEDS ORDERED: METHADONE HCL 10 MG TABLET (FOR DETOX USE ONLY) ONE (09:20)
[2020-07-22] MEDS ORDERED: METHADONE HCL 5 MG TABLET (FOR DETOX USE ONLY) ONE (09:20)
[2020-07-22] MEDS ORDERED: METHADONE (DETOX) 20 MG, METHADONE (DETOX) 5 MG PO ONE (10:00)
[2020-07-22] MEDS: PRENATAL VITAMINS W/ FOLIC ACID TABLET (FP) PO SCH (11:10)
[2020-07-22 11:28] LABS: HEMATOCRIT 40.9 % (35.4-49); HEMOGLOBIN 13.5 GM/dL (11.7-16.9); MCHC 32.9 g/dl (32.0-35.9); MEAN CELL VOLUME 88.2 fl (80-96); MEAN PLT VOLUME 10.6 fl (7.5-11.1); PLATELET COUNT 210 K/MM3 (134-434); RBC 4.64 M/mm3 (4.00-5.60); RDW 13.9 % (11.9-15.9); WHITE BLOOD COUNT 6.4 K/mm3 (4.0-10.0)
[2020-07-22 11:48] LABS: CALCIUM 9.1 mg/dL (8.5-10.1)
[2020-07-22 11:50] LABS: ALBUMIN 3.5 g/dl (3.4-5.0); BLOOD UREA NITROGEN 9.3 mg/dL (7-18)
[2020-07-22 11:52] LABS: CREATININE 0.8 mg/dL (0.55-1.3); TOT PROT 6.4 g/dl (6.4-8.2)
[2020-07-22 11:55] LABS: BILIRUBIN,TOTAL 0.3 mg/dL (0.2-1)
[2020-07-22] MEDS: THIAMINE HCL 100 MG TABLET (FP) PO SCH (22:41)
[2020-07-22] MEDS: MELATONIN 5 MG TABLETS PO SCH (22:41)
[2020-07-23] MEDS ORDERED: METHADONE HCL 10 MG TABLET (FOR DETOX USE ONLY) PO ONE (10:00)
[2020-07-23] MEDS: PRENATAL VITAMINS W/ FOLIC ACID TABLET (FP) PO SCH (10:03)
[2020-07-23] MEDS: THIAMINE HCL 100 MG TABLET (FP) PO SCH (22:14)
[2020-07-23] MEDS: MELATONIN 5 MG TABLETS PO SCH (22:14)
[2020-07-24] MEDS ORDERED: METHADONE HCL 10 MG TABLET (FOR DETOX USE ONLY) ONE (09:23)
[2020-07-24] MEDS ORDERED: METHADONE HCL 5 MG TABLET (FOR DETOX USE ONLY) ONE (09:24)
[2020-07-24 09:46] VITALS: BP 119/65; PULSE 78; TEMP 96.9
[2020-07-24] MEDS ORDERED: METHADONE (DETOX) 10 MG, METHADONE (DETOX) 5 MG PO ONE (10:00)
[2020-07-24 14:06] LABS: SARS-CoV-2 NAA Not Detected (Not Detected)
[2020-07-25] MEDS ORDERED: METHADONE HCL 10 MG TABLET (FOR DETOX USE ONLY) PO ONE (10:00)
[2020-07-26] MEDS ORDERED: METHADONE HCL 5 MG TABLET (FOR DETOX USE ONLY) PO ONE (06:00)
== END 2020-07-24 10:21 | disposition left against medical advice (07) | DRG 770 ==
LOC: YASAS 18:06 → Y3N 07-22 01:58
PROVIDERS: ADMIT Allergy & Immunology; ATTEND Allergy & Immunology
PROC: HZ2ZZZZ Detoxification Services for Substance Abuse Treatment (ICD-10-PCS; principal; 2020-07-22)
DX: F11.23 Opioid dependence with withdrawal (principal); F17.210 Nicotine dependence, cigarettes, uncomplicated
CPT/HCPCS: 36415; 80053; 85027; 86780; C9803; U0003; U0005

== ENCOUNTER 2020-08-27 08:41 | Inpatient (IN) | payer OTHER ==
[2020-08-27 09:33] VITALS: BMI 19.2
[2020-08-27] MEDS ORDERED: cloNIDine HCL 0.1 MG TABLET PO PRN (13:35)
[2020-08-27] MEDS ORDERED: ONDANSETRON *ODT* 4 MG TABLET SL PRN (13:35)
[2020-08-27] MEDS ORDERED: methaDONE HCL 10 MG TABLET (FOR DETOX USE ONLY) PO ONE (13:35)
[2020-08-27] MEDS ORDERED: NICOTINE POLACRILEX 2 MG GUM BUC PRN (13:35)
[2020-08-27] MEDS ORDERED: METHOCARBAMOL 500 MG TABLET PO PRN (13:35)
[2020-08-27] MEDS ORDERED: MAGNESIUM HYDROX 2400MG/30ML ORAL SUSPENSION 30 ML CUP PO PRN (13:35)
[2020-08-27] MEDS ORDERED: MAG HYDROX/AL HYDROX/SIMETH 30 ML UNIT-DOSE CUP PO PRN (13:35)
[2020-08-27] MEDS ORDERED: MAGNESIUM CITRATE 300 ML BOTTLE PO PRN (13:35)
[2020-08-27] MEDS ORDERED: ACETAMINOPHEN 325 MG TABLET (FP) PO PRN ×2 (13:35)
[2020-08-27] MEDS ORDERED: MENTHOL/PHENOL 1 EACH UD MM PRN (13:35)
[2020-08-27] MEDS ORDERED: BISMUTH SUBSALICYLATE 524 MG/30 ML PO PRN (13:35)
[2020-08-27] MEDS ORDERED: IBUPROFEN 400 MG TABLET (FP) PO PRN (13:35)
[2020-08-27] MEDS: diazePAM 5 MG TABLET PO PRN ×2 (15:33→22:41)
[2020-08-27] MEDS: PRENATAL VITAMINS W/ FOLIC ACID TABLET (FP) PO SCH (15:38)
[2020-08-27] MEDS: MELATONIN 5 MG TABLETS PO SCH (22:40)
[2020-08-27] MEDS: THIAMINE HCL 100 MG TABLET (FP) PO SCH (22:40)
[2020-08-28] MEDS ORDERED: methaDONE HCL 10 MG TABLET (FOR DETOX USE ONLY) ONE (08:46)
[2020-08-28] MEDS: PRENATAL VITAMINS W/ FOLIC ACID TABLET (FP) PO SCH (10:36)
[2020-08-28] MEDS: diazePAM 5 MG TABLET PO PRN ×2 (10:37→15:57)
[2020-08-28 11:10] LABS: HEMATOCRIT 43.4 % (35.4-49); HEMOGLOBIN 14.1 GM/dL (11.7-16.9); MCH 28.3 pg (25.7-33.7); MCHC 32.5 g/dl (32.0-35.9); MEAN PLT VOLUME 10.4 fl (7.5-11.1); PLATELET COUNT 194 10^3/uL (134-434); RBC 4.99 M/mm3 (4.00-5.60); RDW 13.7 % (11.9-15.9); WHITE BLOOD COUNT 6.6 K/mm3 (4.0-10.0)
[2020-08-28 11:15] LABS: ALBUMIN 3.6 g/dl (3.4-5.0); BLOOD UREA NITROGEN 12.2 mg/dL (7-18); CALCIUM 8.9 mg/dL (8.5-10.1)
[2020-08-28 11:18] LABS: CREATININE 0.6 mg/dL (0.55-1.3)
[2020-08-28 11:19] LABS: BILIRUBIN,TOTAL 0.7 mg/dL (0.2-1); TOT PROT 6.8 g/dl (6.4-8.2)
[2020-08-28] MEDS: MELATONIN 5 MG TABLETS PO SCH (22:47)
[2020-08-28] MEDS: THIAMINE HCL 100 MG TABLET (FP) PO SCH (22:47)
[2020-08-29] MEDS ORDERED: methaDONE HCL 10 MG TABLET (FOR DETOX USE ONLY) PO ONE (10:00)
[2020-08-29] MEDS: PRENATAL VITAMINS W/ FOLIC ACID TABLET (FP) PO SCH (10:27)
[2020-08-29] MEDS: diazePAM 5 MG TABLET PO PRN ×2 (10:28→17:19)
[2020-08-29] MEDS: THIAMINE HCL 100 MG TABLET (FP) PO SCH (23:06)
[2020-08-29] MEDS: MELATONIN 5 MG TABLETS PO SCH (23:06)
[2020-08-30] MEDS ORDERED: methaDONE HCL 10 MG TABLET (FOR DETOX USE ONLY) ONE (09:21)
[2020-08-30 09:33] VITALS: BP 120/79; PULSE 83; TEMP 96.4
[2020-08-30] MEDS: diazePAM 5 MG TABLET PO PRN (09:35)
[2020-08-30] MEDS: PRENATAL VITAMINS W/ FOLIC ACID TABLET (FP) PO SCH (09:39)
[2020-08-31] MEDS ORDERED: methaDONE HCL 10 MG TABLET (FOR DETOX USE ONLY) PO ONE (10:00)
== END 2020-08-30 12:55 | disposition left against medical advice (07) | DRG 770 ==
LOC: YASAS 08:41 → Y3N 14:17
PROVIDERS: ADMIT Allergy & Immunology; ATTEND Allergy & Immunology
PROC: HZ2ZZZZ Detoxification Services for Substance Abuse Treatment (ICD-10-PCS; principal; 2020-08-27)
DX: F11.23 Opioid dependence with withdrawal (principal); F15.10 Other stimulant abuse, uncomplicated; F17.210 Nicotine dependence, cigarettes, uncomplicated
CPT/HCPCS: 36415; 80053; 85027; 86780; C9803; U0003; U0005

== ENCOUNTER 2020-10-08 23:05 | Emergency (ER) | payer OTHER ==
[2020-10-09] MEDS ORDERED: methaDONE HCL 10 MG TABLET (FOR DETOX USE ONLY) PO ONE (00:20)
[2020-10-09] MEDS ORDERED: methaDONE HCL 10 MG TABLET ONE (00:29)
[2020-10-09 08:46] VITALS: TEMP 98.3
[2020-10-09 11:23] VITALS: BP 118/69; PULSE 74
== END 2020-10-09 11:10 | disposition home or self-care (01) ==
LOC: JER 23:05
DX: F11.23 Opioid dependence with withdrawal (principal)
CPT/HCPCS: 99283-25

== ENCOUNTER 2020-11-18 19:59 | Inpatient (IN) | payer OTHER ==
[2020-11-18] MEDS ORDERED: ACETAMINOPHEN 325 MG TABLET (FP) PO PRN ×2 (23:39)
[2020-11-18] MEDS ORDERED: MAG HYDROX/AL HYDROX/SIMETH 30 ML UNIT-DOSE CUP PO PRN (23:39)
[2020-11-18] MEDS ORDERED: MENTHOL/PHENOL 1 EACH UD MM PRN (23:39)
[2020-11-18] MEDS ORDERED: hydrOXYzine PAMOATE 25 MG CAPSULE (FP) PO PRN (23:39)
[2020-11-18] MEDS ORDERED: METHOCARBAMOL 500 MG TABLET PO PRN (23:39)
[2020-11-18] MEDS ORDERED: MAGNESIUM CITRATE 300 ML BOTTLE PO PRN (23:39)
[2020-11-18] MEDS ORDERED: MAGNESIUM HYDROX 2400MG/30ML ORAL SUSPENSION 30 ML CUP PO PRN (23:39)
[2020-11-18] MEDS ORDERED: P-EPHED 60MG/TRIPROLIDI 2.5MG TABLET PO PRN (23:39)
[2020-11-18] MEDS ORDERED: guaiFENesin 200 MG/10 ML 10 ML UNIT-DOSE CUPS PO PRN (23:39)
[2020-11-18] MEDS ORDERED: IBUPROFEN 400 MG TABLET (FP) PO PRN (23:39)
[2020-11-18] MEDS ORDERED: BISMUTH SUBSALICYLATE 524 MG/30 ML PO PRN (23:39)
[2020-11-18] MEDS ORDERED: ONDANSETRON *ODT* 4 MG TABLET SL PRN (23:39)
[2020-11-18] MEDS ORDERED: cloNIDine HCL 0.1 MG TABLET PO PRN (23:45)
[2020-11-18] MEDS ORDERED: methaDONE HCL 10 MG TABLET (FOR DETOX USE ONLY) PO ONE (23:45)
[2020-11-18 23:58] VITALS: BMI 21.2
[2020-11-19] MEDS ORDERED: methaDONE HCL 10 MG TABLET (FOR DETOX USE ONLY) ONE (03:18)
[2020-11-19] MEDS ORDERED: ONDANSETRON *ODT* 4 MG TABLET ONE (03:18)
[2020-11-19] MEDS ORDERED: diazePAM 5 MG TABLET ONE (04:37)
[2020-11-19] MEDS: diazePAM 5 MG TABLET PO PRN ×4 (04:38→20:42)
[2020-11-19] MEDS: PRENATAL VITAMINS W/ FOLIC ACID TABLET (FP) PO SCH (10:41)
[2020-11-19] MEDS: MELATONIN 5 MG TABLETS PO SCH (22:11)
[2020-11-19] MEDS: THIAMINE HCL 100 MG TABLET (FP) PO SCH (22:11)
[2020-11-20] MEDS: diazePAM 5 MG TABLET PO PRN ×3 (01:37→15:59)
[2020-11-20] MEDS ORDERED: methaDONE HCL 10 MG TABLET (FOR DETOX USE ONLY) PO ONE (10:00)
[2020-11-20] MEDS: PRENATAL VITAMINS W/ FOLIC ACID TABLET (FP) PO SCH (10:13)
[2020-11-20 10:30] LABS: HEMATOCRIT 43.7 % (35.4-49); HEMOGLOBIN 14.7 GM/dL (11.7-16.9); MCH 29.1 pg (25.7-33.7); MCHC 33.6 g/dl (32.0-35.9); MEAN CELL VOLUME 86.5 fl (80-96); MEAN PLT VOLUME 9.6 fl (7.5-11.1); PLATELET COUNT 301 10^3/uL (134-434); RBC 5.05 M/mm3 (4.00-5.60); WHITE BLOOD COUNT 7.2 K/mm3 (4.0-10.0)
[2020-11-20 10:43] LABS: ALBUMIN 3.2 g/dl (3.4-5.0); BLOOD UREA NITROGEN 8.6 mg/dL (7-18); CALCIUM 9.2 mg/dL (8.5-10.1)
[2020-11-20 10:46] LABS: BILIRUBIN,TOTAL 0.2 mg/dL (0.2-1)
[2020-11-20 10:47] LABS: CREATININE 0.7 mg/dL (0.55-1.3)
[2020-11-20] MEDS: SODIUM CHLORIDE NASAL SPRAY 44 ML BOTTLE NS SCH ×2 (16:01→22:49)
[2020-11-20] MEDS: THIAMINE HCL 100 MG TABLET (FP) PO SCH (22:49)
[2020-11-20] MEDS: MELATONIN 5 MG TABLETS PO SCH (22:49)
[2020-11-21] MEDS: diazePAM 5 MG TABLET PO PRN ×2 (03:01→08:53)
[2020-11-21 06:10] VITALS: TEMP 96.8
[2020-11-21] MEDS: SODIUM CHLORIDE NASAL SPRAY 44 ML BOTTLE NS SCH (06:22)
[2020-11-21] MEDS ORDERED: methaDONE HCL 10 MG TABLET (FOR DETOX USE ONLY) ONE (09:09)
[2020-11-21 09:43] VITALS: BP 109/66; PULSE 120
[2020-11-21] MEDS ORDERED: methaDONE HCL 10 MG TABLET (FOR DETOX USE ONLY) PO ONE (09:50)
[2020-11-21] MEDS: PRENATAL VITAMINS W/ FOLIC ACID TABLET (FP) PO SCH (10:23)
[2020-11-21] MEDS ORDERED: SODIUM CHLORIDE NASAL SPRAY 44 ML BOTTLE NS SCH (14:00)
[2020-11-22] MEDS ORDERED: methaDONE HCL 10 MG TABLET (FOR DETOX USE ONLY) PO ONE (10:00)
== END 2020-11-21 11:54 | disposition left against medical advice (07) | DRG 770 ==
LOC: YASAS 19:59 → Y3N 11-19 13:17
PROVIDERS: ADMIT Allergy & Immunology; ATTEND Allergy & Immunology
PROC: HZ2ZZZZ Detoxification Services for Substance Abuse Treatment (ICD-10-PCS; principal; 2020-11-19)
DX: F11.23 Opioid dependence with withdrawal (principal); F10.20 Alcohol dependence, uncomplicated; F14.10 Cocaine abuse, uncomplicated; F17.210 Nicotine dependence, cigarettes, uncomplicated; R09.81 Nasal congestion; Z86.16 Personal history of COVID-19
CPT/HCPCS: 36415; 80053; 85027; 86780; C9803; Q0162; U0003; U0005

== ENCOUNTER 2020-12-17 17:14 | Inpatient (IN) | payer OTHER ==
[2020-12-17 18:18] VITALS: BMI 20.2
[2020-12-17] MEDS ORDERED: methaDONE HCL 10 MG TABLET (FOR DETOX USE ONLY) PO ONE (19:23)
[2020-12-17] MEDS ORDERED: MENTHOL/PHENOL 1 EACH UD MM PRN (19:23)
[2020-12-17] MEDS ORDERED: ACETAMINOPHEN 325 MG TABLET (FP) PO PRN ×2 (19:23)
[2020-12-17] MEDS ORDERED: BISMUTH SUBSALICYLATE 524 MG/30 ML PO PRN (19:23)
[2020-12-17] MEDS ORDERED: NICOTINE 10 MG CARTRIDGE (INHALER) IH PRN (19:23)
[2020-12-17] MEDS ORDERED: NALOXONE (NARCAN) HCL 4 MG/0.1 ML SPRAY NS PRN (19:23)
[2020-12-17] MEDS ORDERED: MAG HYDROX/AL HYDROX/SIMETH 30 ML UNIT-DOSE CUP PO PRN (19:23)
[2020-12-17] MEDS ORDERED: MAGNESIUM HYDROX 2400MG/30ML ORAL SUSPENSION 30 ML CUP PO PRN (19:23)
[2020-12-17] MEDS ORDERED: cloNIDine HCL 0.1 MG TABLET PO PRN (19:23)
[2020-12-17] MEDS ORDERED: METHOCARBAMOL 500 MG TABLET PO PRN (19:23)
[2020-12-17] MEDS ORDERED: IBUPROFEN 400 MG TABLET (FP) PO PRN (19:23)
[2020-12-17] MEDS ORDERED: MAGNESIUM CITRATE 300 ML BOTTLE PO PRN (19:23)
[2020-12-17] MEDS: MELATONIN 5 MG TABLETS PO SCH (22:11)
[2020-12-17] MEDS: THIAMINE HCL 100 MG TABLET (FP) PO SCH (22:11)
[2020-12-17] MEDS: diazePAM 5 MG TABLET PO SCH (22:15)
[2020-12-18] MEDS: diazePAM 5 MG TABLET PO PRN ×2 (03:08→15:15)
[2020-12-18] MEDS: diazePAM 5 MG TABLET PO SCH ×4 (05:24→22:08)
[2020-12-18] MEDS: PRENATAL VITAMINS W/ FOLIC ACID TABLET (FP) PO SCH (09:41)
[2020-12-18] MEDS ORDERED: methaDONE HCL 10 MG TABLET (FOR DETOX USE ONLY) ONE (09:42)
[2020-12-18 09:56] LABS: HEMATOCRIT 43.1 % (35.4-49); HEMOGLOBIN 14.2 GM/dL (11.7-16.9); MCH 28.9 pg (25.7-33.7); MEAN CELL VOLUME 87.8 fl (80-96); MEAN PLT VOLUME 10.4 fl (7.5-11.1); PLATELET COUNT 232 10^3/uL (134-434); RBC 4.91 M/mm3 (4.00-5.60); RDW 14.3 % (11.9-15.9); WHITE BLOOD COUNT 8.2 K/mm3 (4.0-10.0)
[2020-12-18 10:10] LABS: ALBUMIN 3.4 g/dl (3.4-5.0); BLOOD UREA NITROGEN 10.7 mg/dL (7-18); CALCIUM 8.8 mg/dL (8.5-10.1)
[2020-12-18 10:13] LABS: BILIRUBIN,TOTAL 0.2 mg/dL (0.2-1); TOT PROT 6.8 g/dl (6.4-8.2)
[2020-12-18 10:14] LABS: CREATININE 0.7 mg/dL (0.55-1.3)
[2020-12-18] MEDS: THIAMINE HCL 100 MG TABLET (FP) PO SCH (22:08)
[2020-12-18] MEDS: MELATONIN 5 MG TABLETS PO SCH (22:10)
[2020-12-19] MEDS: diazePAM 5 MG TABLET PO PRN ×2 (01:30→10:33)
[2020-12-19] MEDS: diazePAM 5 MG TABLET PO SCH ×3 (05:11→22:23)
[2020-12-19] MEDS ORDERED: methaDONE HCL 10 MG TABLET (FOR DETOX USE ONLY) PO ONE (10:00)
[2020-12-19] MEDS: PRENATAL VITAMINS W/ FOLIC ACID TABLET (FP) PO SCH (10:33)
[2020-12-19] MEDS: THIAMINE HCL 100 MG TABLET (FP) PO SCH (22:23)
[2020-12-19] MEDS: MELATONIN 5 MG TABLETS PO SCH (22:24)
[2020-12-20] MEDS: diazePAM 5 MG TABLET PO SCH ×2 (05:20→17:50)
[2020-12-20] MEDS: diazePAM 5 MG TABLET PO PRN (08:56)
[2020-12-20] MEDS ORDERED: methaDONE HCL 10 MG TABLET (FOR DETOX USE ONLY) ONE (09:01)
[2020-12-20] MEDS: PRENATAL VITAMINS W/ FOLIC ACID TABLET (FP) PO SCH (11:30)
[2020-12-20] MEDS: MELATONIN 5 MG TABLETS PO SCH (22:56)
[2020-12-20] MEDS: THIAMINE HCL 100 MG TABLET (FP) PO SCH (22:56)
[2020-12-21] MEDS ORDERED: diazePAM 5 MG TABLET PO ONE (06:00)
[2020-12-21 09:56] VITALS: BP 116/60; PULSE 70; TEMP 98.2
[2020-12-21] MEDS ORDERED: methaDONE HCL 10 MG TABLET (FOR DETOX USE ONLY) PO ONE (10:00)
[2020-12-21] MEDS: PRENATAL VITAMINS W/ FOLIC ACID TABLET (FP) PO SCH (10:13)
== END 2020-12-21 10:58 | disposition home or self-care (01) | DRG 773 ==
LOC: YASAS 17:14 → Y6N 20:46
PROVIDERS: ADMIT Allergy & Immunology; ATTEND Allergy & Immunology
PROC: HZ2ZZZZ Detoxification Services for Substance Abuse Treatment (ICD-10-PCS; principal; 2020-12-17)
DX: F11.23 Opioid dependence with withdrawal (principal); F14.20 Cocaine dependence, uncomplicated; F13.230 Sedative, hypnotic or anxiolytic dependence with withdrawal, uncomplicated; F15.10 Other stimulant abuse, uncomplicated; F17.210 Nicotine dependence, cigarettes, uncomplicated; F41.9 Anxiety disorder, unspecified; Z86.16 Personal history of COVID-19
CPT/HCPCS: 36415; 80053; 81025; 85027; 86780; C9803; U0003; U0005

== ENCOUNTER 2021-01-08 16:32 | Inpatient (IN) | payer OTHER ==
[2021-01-08 17:19] VITALS: BMI 20.6
[2021-01-08] MEDS ORDERED: BISMUTH SUBSALICYLATE 524 MG/30 ML PO PRN (18:59)
[2021-01-08] MEDS ORDERED: MAG HYDROX/AL HYDROX/SIMETH 30 ML UNIT-DOSE CUP PO PRN (18:59)
[2021-01-08] MEDS ORDERED: MENTHOL/PHENOL 1 EACH UD MM PRN (18:59)
[2021-01-08] MEDS ORDERED: IBUPROFEN 400 MG TABLET (FP) PO PRN (18:59)
[2021-01-08] MEDS ORDERED: ONDANSETRON *ODT* 4 MG TABLET SL PRN (18:59)
[2021-01-08] MEDS ORDERED: MAGNESIUM CITRATE 300 ML BOTTLE PO PRN (18:59)
[2021-01-08] MEDS ORDERED: cloNIDine HCL 0.1 MG TABLET PO PRN (18:59)
[2021-01-08] MEDS ORDERED: ACETAMINOPHEN 325 MG TABLET (FP) PO PRN ×2 (18:59)
[2021-01-08] MEDS ORDERED: MAGNESIUM HYDROX 2400MG/30ML ORAL SUSPENSION 30 ML CUP PO PRN (18:59)
[2021-01-08] MEDS ORDERED: NICOTINE 10 MG CARTRIDGE (INHALER) IH PRN (18:59)
[2021-01-08] MEDS ORDERED: diazePAM 5 MG TABLET PO PRN (19:24)
[2021-01-08] MEDS ORDERED: methaDONE HCL 10 MG TABLET (FOR DETOX USE ONLY) PO ONE (20:00)
[2021-01-08] MEDS: diazePAM 5 MG TABLET PO PRN (20:14)
[2021-01-08] MEDS ORDERED: BENZOCAINE 20 % GEL TUBE MM PRN (21:25)
[2021-01-08] MEDS ORDERED: diazePAM 5 MG TABLET PO SCH (22:00)
[2021-01-08] MEDS: DOCUSATE SODIUM 100 MG CAPSULE (FP) PO SCH (22:45)
[2021-01-08] MEDS: hydrOXYzine PAMOATE 25 MG CAPSULE (FP) PO PRN (22:45)
[2021-01-08] MEDS: THIAMINE HCL 100 MG TABLET (FP) PO SCH (22:45)
[2021-01-09] MEDS ORDERED: methaDONE HCL 10 MG TABLET (FOR DETOX USE ONLY) ONE (08:53)
[2021-01-09] MEDS ORDERED: diazePAM 5 MG TABLET PO PRN (09:58)
[2021-01-09] MEDS: diazePAM 5 MG TABLET PO PRN ×2 (10:20→19:03)
[2021-01-09] MEDS: PRENATAL VITAMINS W/ FOLIC ACID TABLET (FP) PO SCH (10:24)
[2021-01-09 13:36] LABS: ALBUMIN 3.5 g/dl (3.4-5.0); BLOOD UREA NITROGEN 12.5 mg/dL (7-18); CALCIUM 8.6 mg/dL (8.5-10.1)
[2021-01-09 13:38] LABS: HEMATOCRIT 41.6 % (35.4-49); HEMOGLOBIN 13.7 GM/dL (11.7-16.9); MCH 28.6 pg (25.7-33.7); MEAN CELL VOLUME 86.9 fl (80-96); MEAN PLT VOLUME 10.1 fl (7.5-11.1); PLATELET COUNT 216 10^3/uL (134-434); RBC 4.78 M/mm3 (4.00-5.60); RDW 14.2 % (11.9-15.9); WHITE BLOOD COUNT 7.3 K/mm3 (4.0-10.0)
[2021-01-09 13:39] LABS: CREATININE 0.8 mg/dL (0.55-1.3)
[2021-01-09 13:40] LABS: BILIRUBIN,TOTAL 0.4 mg/dL (0.2-1)
[2021-01-09 13:41] LABS: TOT PROT 6.7 g/dl (6.4-8.2)
[2021-01-09] MEDS: DOCUSATE SODIUM 100 MG CAPSULE (FP) PO SCH (22:55)
[2021-01-09] MEDS: THIAMINE HCL 100 MG TABLET (FP) PO SCH (22:55)
[2021-01-10] MEDS ORDERED: methaDONE HCL 10 MG TABLET (FOR DETOX USE ONLY) PO ONE (10:00)
[2021-01-10] MEDS: METHOCARBAMOL 500 MG TABLET PO PRN (10:54)
[2021-01-10] MEDS: PRENATAL VITAMINS W/ FOLIC ACID TABLET (FP) PO SCH (10:54)
[2021-01-10] MEDS: diazePAM 5 MG TABLET PO PRN ×2 (10:57→22:23)
[2021-01-10] MEDS: DOCUSATE SODIUM 100 MG CAPSULE (FP) PO SCH (22:21)
[2021-01-10] MEDS: MELATONIN 5 MG TABLETS PO PRN (22:21)
[2021-01-10] MEDS: THIAMINE HCL 100 MG TABLET (FP) PO SCH (22:22)
[2021-01-10] MEDS ORDERED: diazePAM 5 MG TABLET PO PRN (23:00)
[2021-01-11] MEDS ORDERED: methaDONE HCL 10 MG TABLET (FOR DETOX USE ONLY) ONE (09:18)
[2021-01-11] MEDS: diazePAM 5 MG TABLET PO PRN ×2 (10:42→22:42)
[2021-01-11] MEDS: PRENATAL VITAMINS W/ FOLIC ACID TABLET (FP) PO SCH (10:44)
[2021-01-11] MEDS: THIAMINE HCL 100 MG TABLET (FP) PO SCH (22:40)
[2021-01-11] MEDS: MELATONIN 5 MG TABLETS PO PRN (22:40)
[2021-01-11] MEDS: DOCUSATE SODIUM 100 MG CAPSULE (FP) PO SCH (22:40)
[2021-01-12 09:21] VITALS: BP 109/77; PULSE 74; TEMP 97.8
[2021-01-12] MEDS ORDERED: methaDONE HCL 10 MG TABLET (FOR DETOX USE ONLY) PO ONE (10:00)
[2021-01-12] MEDS: PRENATAL VITAMINS W/ FOLIC ACID TABLET (FP) PO SCH (10:21)
[2021-01-12] MEDS: hydrOXYzine PAMOATE 25 MG CAPSULE (FP) PO PRN (10:21)
[2021-01-12] MEDS: METHOCARBAMOL 500 MG TABLET PO PRN (10:21)
== END 2021-01-12 11:05 | disposition home or self-care (01) | DRG 773 ==
LOC: YASAS 16:32 → Y6N 18:59
PROVIDERS: ADMIT Allergy & Immunology; ATTEND Allergy & Immunology
PROC: HZ2ZZZZ Detoxification Services for Substance Abuse Treatment (ICD-10-PCS; principal; 2021-01-08)
DX: F11.23 Opioid dependence with withdrawal (principal); F14.20 Cocaine dependence, uncomplicated; F15.10 Other stimulant abuse, uncomplicated; F17.213 Nicotine dependence, cigarettes, with withdrawal; K59.00 Constipation, unspecified; R63.4 Abnormal weight loss; Z68.20 Body mass index [BMI] 20.0-20.9, adult; Z86.16 Personal history of COVID-19; Z99.89 Dependence on other enabling machines and devices
CPT/HCPCS: 36415; 80053; 85027; 86780; C9803; U0003; U0005

== ENCOUNTER 2021-01-29 17:16 | Inpatient (IN) | payer OTHER ==
[2021-01-29 18:33] VITALS: BMI 21.1
[2021-01-29] MEDS ORDERED: P-EPHED 60MG/TRIPROLIDI 2.5MG TABLET PO PRN (18:59)
[2021-01-29] MEDS ORDERED: ACETAMINOPHEN 325 MG TABLET (FP) PO PRN ×2 (18:59)
[2021-01-29] MEDS ORDERED: MENTHOL/PHENOL 1 EACH UD MM PRN (18:59)
[2021-01-29] MEDS ORDERED: ONDANSETRON *ODT* 4 MG TABLET SL PRN (18:59)
[2021-01-29] MEDS ORDERED: METHOCARBAMOL 500 MG TABLET PO PRN (18:59)
[2021-01-29] MEDS ORDERED: MAGNESIUM HYDROX 2400MG/30ML ORAL SUSPENSION 30 ML CUP PO PRN (18:59)
[2021-01-29] MEDS ORDERED: hydrOXYzine PAMOATE 25 MG CAPSULE (FP) PO PRN (18:59)
[2021-01-29] MEDS ORDERED: MAG HYDROX/AL HYDROX/SIMETH 30 ML UNIT-DOSE CUP PO PRN (18:59)
[2021-01-29] MEDS ORDERED: MAGNESIUM CITRATE 300 ML BOTTLE PO PRN (18:59)
[2021-01-29] MEDS ORDERED: IBUPROFEN 400 MG TABLET (FP) PO PRN (18:59)
[2021-01-29] MEDS ORDERED: DICYCLOMINE HCL 10 MG CAPSULE PO PRN (18:59)
[2021-01-29] MEDS ORDERED: diazePAM 5 MG TABLET PO PRN (19:01)
[2021-01-29] MEDS ORDERED: methaDONE HCL 10 MG TABLET (FOR DETOX USE ONLY) PO ONE (19:02)
[2021-01-29] MEDS ORDERED: cloNIDine HCL 0.1 MG TABLET PO PRN (19:02)
[2021-01-29] MEDS: MELATONIN 5 MG TABLETS PO SCH (22:40)
[2021-01-29] MEDS: diazePAM 5 MG TABLET PO SCH (22:40)
[2021-01-29] MEDS: THIAMINE HCL 100 MG TABLET (FP) PO SCH (22:40)
[2021-01-30] MEDS: diazePAM 5 MG TABLET PO SCH ×4 (06:19→23:26)
[2021-01-30] MEDS ORDERED: methaDONE HCL 10 MG TABLET (FOR DETOX USE ONLY) ONE (09:31)
[2021-01-30] MEDS ORDERED: PRENATAL VITAMINS W/ FOLIC ACID TABLET (FP) PO SCH (10:00)
[2021-01-30 10:49] LABS: HEMATOCRIT 39.1 % (35.4-49); HEMOGLOBIN 13.1 GM/dL (11.7-16.9); MCH 28.5 pg (25.7-33.7); MCHC 33.5 g/dl (32.0-35.9); MEAN PLT VOLUME 10.2 fl (7.5-11.1); PLATELET COUNT 210 10^3/uL (134-434); RBC 4.59 M/mm3 (4.00-5.60); RDW 13.8 % (11.9-15.9); WHITE BLOOD COUNT 5.5 K/mm3 (4.0-10.0)
[2021-01-30 11:01] LABS: ALBUMIN 3.2 g/dl (3.4-5.0); BLOOD UREA NITROGEN 14.4 mg/dL (7-18); CALCIUM 8.9 mg/dL (8.5-10.1)
[2021-01-30 11:03] LABS: CREATININE 0.8 mg/dL (0.55-1.3)
[2021-01-30 11:06] LABS: BILIRUBIN,TOTAL 0.3 mg/dL (0.2-1); TOT PROT 6.5 g/dl (6.4-8.2)
[2021-01-30 12:09] LABS: HIV INTERPRETATION NEGATIVE (NEGATIVE)
[2021-01-30] MEDS: MELATONIN 5 MG TABLETS PO SCH (23:26)
[2021-01-30] MEDS: THIAMINE HCL 100 MG TABLET (FP) PO SCH (23:28)
[2021-01-31] MEDS ORDERED: diazePAM 5 MG TABLET PO SCH (06:00)
[2021-01-31 09:20] VITALS: BP 111/56; PULSE 73; TEMP 97.1
[2021-01-31] MEDS ORDERED: methaDONE HCL 10 MG TABLET (FOR DETOX USE ONLY) PO ONE (10:00)
[2021-02-01] MEDS ORDERED: diazePAM 5 MG TABLET PO SCH (06:00)
[2021-02-02] MEDS ORDERED: diazePAM 5 MG TABLET PO ONE (06:00)
[2021-02-02] MEDS ORDERED: methaDONE HCL 10 MG TABLET (FOR DETOX USE ONLY) PO ONE (10:00)
== END 2021-01-31 10:03 | disposition left against medical advice (07) | DRG 770 ==
LOC: YASAS 17:16 → Y6N 19:15
PROVIDERS: ADMIT Allergy & Immunology; ATTEND Allergy & Immunology
PROC: HZ2ZZZZ Detoxification Services for Substance Abuse Treatment (ICD-10-PCS; principal; 2021-01-29)
DX: F11.23 Opioid dependence with withdrawal (principal); F13.230 Sedative, hypnotic or anxiolytic dependence with withdrawal, uncomplicated; F14.20 Cocaine dependence, uncomplicated; F17.210 Nicotine dependence, cigarettes, uncomplicated
CPT/HCPCS: 36415; 80053; 85027; 86780; 87389; C9803; U0003; U0005

== ENCOUNTER 2021-02-18 18:48 | Inpatient (IN) | payer OTHER ==
[2021-02-18 20:46] VITALS: BMI 19.9
[2021-02-18] MEDS ORDERED: ACETAMINOPHEN 325 MG TABLET (FP) PO PRN (22:20)
[2021-02-18] MEDS ORDERED: ONDANSETRON *ODT* 4 MG TABLET SL PRN (22:20)
[2021-02-18] MEDS ORDERED: NICOTINE 10 MG CARTRIDGE (INHALER) IH PRN (22:20)
[2021-02-18] MEDS ORDERED: MAGNESIUM HYDROX 2400MG/30ML ORAL SUSPENSION 30 ML CUP PO PRN (22:20)
[2021-02-18] MEDS ORDERED: MAGNESIUM CITRATE 300 ML BOTTLE PO PRN (22:20)
[2021-02-18] MEDS ORDERED: BISMUTH SUBSALICYLATE 524 MG/30 ML PO PRN (22:20)
[2021-02-18] MEDS ORDERED: MAG HYDROX/AL HYDROX/SIMETH 30 ML UNIT-DOSE CUP PO PRN (22:20)
[2021-02-18] MEDS ORDERED: MENTHOL/PHENOL 1 EACH UD MM PRN (22:20)
[2021-02-18] MEDS ORDERED: methaDONE HCL 10 MG TABLET (FOR DETOX USE ONLY) PO ONE (23:40)
[2021-02-19] MEDS ORDERED: methaDONE HCL 10 MG TABLET (FOR DETOX USE ONLY) ONE (09:55)
[2021-02-19] MEDS ORDERED: hydrOXYzine PAMOATE 25 MG CAPSULE (FP) PO PRN (10:04)
[2021-02-19] MEDS: PRENATAL VITAMINS W/ FOLIC ACID TABLET (FP) PO SCH (10:11)
[2021-02-19] MEDS: METHOCARBAMOL 500 MG TABLET PO PRN ×2 (10:38→22:16)
[2021-02-19] MEDS: ACETAMINOPHEN 325 MG TABLET (FP) PO PRN (10:38)
[2021-02-19] MEDS: cloNIDine HCL 0.1 MG TABLET PO PRN ×2 (14:57→22:13)
[2021-02-19] MEDS: IBUPROFEN 400 MG TABLET (FP) PO PRN ×2 (14:57→22:16)
[2021-02-19] MEDS ORDERED: MELATONIN 5 MG TABLETS PO SCH (22:00)
[2021-02-19] MEDS: THIAMINE HCL 100 MG TABLET (FP) PO SCH (22:13)
[2021-02-19] MEDS: hydrOXYzine PAMOATE 25 MG CAPSULE (FP) PO PRN (22:13)
[2021-02-19] MEDS: SUVOREXANT 10 MG TABLET PO PRN (22:15)
[2021-02-20] MEDS ORDERED: methaDONE HCL 10 MG TABLET (FOR DETOX USE ONLY) PO ONE (10:00)
[2021-02-20] MEDS: PRENATAL VITAMINS W/ FOLIC ACID TABLET (FP) PO SCH (10:30)
[2021-02-20] MEDS: METHOCARBAMOL 500 MG TABLET PO PRN ×2 (10:30→22:20)
[2021-02-20 12:27] LABS: HEMATOCRIT 40.4 % (35.4-49); HEMOGLOBIN 13.2 GM/dL (11.7-16.9); MCH 28.3 pg (25.7-33.7); MCHC 32.6 g/dl (32.0-35.9); MEAN CELL VOLUME 86.8 fl (80-96); MEAN PLT VOLUME 10.2 fl (7.5-11.1); PLATELET COUNT 200 10^3/uL (134-434); RBC 4.65 M/mm3 (4.00-5.60); WHITE BLOOD COUNT 7.3 K/mm3 (4.0-10.0)
[2021-02-20 12:53] LABS: BLOOD UREA NITROGEN 15.1 mg/dL (7-18); CALCIUM 9.1 mg/dL (8.5-10.1)
[2021-02-20 12:54] LABS: ALBUMIN 3.6 g/dl (3.4-5.0)
[2021-02-20 12:57] LABS: CREATININE 0.8 mg/dL (0.55-1.3)
[2021-02-20 13:00] LABS: BILIRUBIN,TOTAL 0.4 mg/dL (0.2-1); TOT PROT 6.5 g/dl (6.4-8.2)
[2021-02-20] MEDS: SUVOREXANT 10 MG TABLET PO PRN (22:18)
[2021-02-20] MEDS: THIAMINE HCL 100 MG TABLET (FP) PO SCH (22:18)
[2021-02-20] MEDS: hydrOXYzine PAMOATE 25 MG CAPSULE (FP) PO PRN (22:20)
[2021-02-20] MEDS: diazePAM 5 MG TABLET PO PRN (22:20)
[2021-02-21] MEDS ORDERED: methaDONE HCL 10 MG TABLET (FOR DETOX USE ONLY) ONE (09:02)
[2021-02-21] MEDS: PRENATAL VITAMINS W/ FOLIC ACID TABLET (FP) PO SCH (10:39)
[2021-02-21] MEDS: METHOCARBAMOL 500 MG TABLET PO PRN ×2 (10:39→23:15)
[2021-02-21] MEDS: diazePAM 5 MG TABLET PO PRN ×3 (10:41→23:15)
[2021-02-21] MEDS: IBUPROFEN 400 MG TABLET (FP) PO PRN (10:41)
[2021-02-21] MEDS: ACETAMINOPHEN 325 MG TABLET (FP) PO PRN (14:44)
[2021-02-21] MEDS: SUVOREXANT 10 MG TABLET PO PRN (23:15)
[2021-02-21] MEDS: THIAMINE HCL 100 MG TABLET (FP) PO SCH (23:15)
[2021-02-22] MEDS ORDERED: methaDONE HCL 10 MG TABLET (FOR DETOX USE ONLY) PO ONE (10:00)
[2021-02-22] MEDS: PRENATAL VITAMINS W/ FOLIC ACID TABLET (FP) PO SCH (10:34)
[2021-02-22] MEDS: METHOCARBAMOL 500 MG TABLET PO PRN ×2 (10:35→23:01)
[2021-02-22] MEDS: diazePAM 5 MG TABLET PO PRN ×3 (10:35→23:00)
[2021-02-22] MEDS: hydrOXYzine PAMOATE 25 MG CAPSULE (FP) PO PRN ×2 (15:24→23:01)
[2021-02-22] MEDS ORDERED: SUVOREXANT 10 MG TABLET PO PRN (22:00)
[2021-02-22] MEDS: THIAMINE HCL 100 MG TABLET (FP) PO SCH (23:01)
[2021-02-23] MEDS: diazePAM 5 MG TABLET PO PRN (06:42)
[2021-02-23 09:11] VITALS: BP 105/72; PULSE 86; TEMP 96.9
== END 2021-02-23 09:30 | disposition home or self-care (01) | DRG 773 ==
LOC: YASAS 18:48 → Y3N 23:18
PROVIDERS: ADMIT Allergy & Immunology; ATTEND Allergy & Immunology
PROC: HZ2ZZZZ Detoxification Services for Substance Abuse Treatment (ICD-10-PCS; principal; 2021-02-18)
DX: F11.23 Opioid dependence with withdrawal (principal); F15.20 Other stimulant dependence, uncomplicated; F17.210 Nicotine dependence, cigarettes, uncomplicated; F19.280 Other psychoactive substance dependence with psychoactive substance-induced anxiety disorder; F19.282 Other psychoactive substance dependence with psychoactive substance-induced sleep disorder; F41.9 Anxiety disorder, unspecified; L84 Corns and callosities; Z20.822 Contact with and (suspected) exposure to COVID-19
CPT/HCPCS: 36415; 80053; 85027; 86780; 93005; 93010; C9803; J0735; U0003; U0005

== ENCOUNTER 2021-03-16 22:18 | Inpatient (IN) | payer OTHER ==
[2021-03-16 22:41] VITALS: BMI 19.1
[2021-03-16] MEDS ORDERED: MENTHOL/PHENOL 1 EACH UD MM PRN (23:23)
[2021-03-16] MEDS ORDERED: methaDONE HCL 10 MG TABLET (FOR DETOX USE ONLY) PO ONE (23:23)
[2021-03-16] MEDS ORDERED: MAGNESIUM HYDROX 2400MG/30ML ORAL SUSPENSION 30 ML CUP PO PRN (23:23)
[2021-03-16] MEDS ORDERED: PROCHLORPERAZINE MALEATE 5 MG TABLET PO PRN (23:23)
[2021-03-16] MEDS ORDERED: IBUPROFEN 400 MG TABLET (FP) PO PRN (23:23)
[2021-03-16] MEDS ORDERED: MAGNESIUM CITRATE 300 ML BOTTLE PO PRN (23:23)
[2021-03-16] MEDS ORDERED: BISMUTH SUBSALICYLATE 524 MG/30 ML PO PRN (23:23)
[2021-03-16] MEDS ORDERED: MAG HYDROX/AL HYDROX/SIMETH 30 ML UNIT-DOSE CUP PO PRN (23:23)
[2021-03-16] MEDS ORDERED: guaiFENesin 200 MG/10 ML 10 ML UNIT-DOSE CUPS PO PRN (23:23)
[2021-03-16] MEDS ORDERED: DICYCLOMINE HCL 10 MG CAPSULE PO PRN (23:23)
[2021-03-16] MEDS ORDERED: cloNIDine HCL 0.1 MG TABLET PO PRN (23:23)
[2021-03-16] MEDS ORDERED: NICOTINE POLACRILEX 2 MG GUM BUC PRN (23:23)
[2021-03-16] MEDS ORDERED: ACETAMINOPHEN 325 MG TABLET (FP) PO PRN ×2 (23:23)
[2021-03-16] MEDS ORDERED: P-EPHED 60MG/TRIPROLIDI 2.5MG TABLET PO PRN (23:23)
[2021-03-16] MEDS ORDERED: METHOCARBAMOL 500 MG TABLET PO PRN (23:23)
[2021-03-16] MEDS ORDERED: NALOXONE HCL 0.4 MG/ML VIAL IM PRN (23:23)
[2021-03-16] MEDS ORDERED: NALOXONE (NARCAN) HCL 4 MG/0.1 ML SPRAY NS PRN (23:23)
[2021-03-17] MEDS ORDERED: clonazePAM 0.5 MG ODT TABLETS SL PRN (01:23)
[2021-03-17] MEDS ORDERED: methaDONE HCL 10 MG TABLET (FOR DETOX USE ONLY) PO ONE (01:23)
[2021-03-17 10:28] LABS: HEMATOCRIT 40.5 % (35.4-49); HEMOGLOBIN 13.2 GM/dL (11.7-16.9); MCH 28.3 pg (25.7-33.7); MCHC 32.6 g/dl (32.0-35.9); MEAN CELL VOLUME 86.8 fl (80-96); MEAN PLT VOLUME 9.9 fl (7.5-11.1); PLATELET COUNT 199 10^3/uL (134-434); RBC 4.67 M/mm3 (4.00-5.60); RDW 14.1 % (11.9-15.9); WHITE BLOOD COUNT 6.7 K/mm3 (4.0-10.0)
[2021-03-17 10:35] LABS: ALBUMIN 3.5 g/dl (3.4-5.0); CALCIUM 8.7 mg/dL (8.5-10.1)
[2021-03-17 10:36] LABS: BLOOD UREA NITROGEN 13.3 mg/dL (7-18)
[2021-03-17 10:39] LABS: CREATININE 0.8 mg/dL (0.55-1.3)
[2021-03-17 10:40] LABS: BILIRUBIN,TOTAL 0.2 mg/dL (0.2-1); TOT PROT 6.4 g/dl (6.4-8.2)
[2021-03-17] MEDS: PRENATAL VITAMINS W/ FOLIC ACID TABLET (FP) PO SCH (10:41)
[2021-03-17] MEDS: NICOTINE 14 MG/24 HOURS TOPICAL PATCH TD SCH (10:48)
[2021-03-17] MEDS: diazePAM 5 MG TABLET PO PRN ×3 (12:10→22:29)
[2021-03-17 15:48] LABS: HIV INTERPRETATION NEGATIVE (NEGATIVE)
[2021-03-17] MEDS ORDERED: MELATONIN 5 MG TABLETS PO SCH (22:00)
[2021-03-17] MEDS: THIAMINE HCL 100 MG TABLET (FP) PO SCH (22:30)
[2021-03-17] MEDS: SUVOREXANT 10 MG TABLET PO PRN (22:30)
[2021-03-18] MEDS ORDERED: methaDONE HCL 10 MG TABLET (FOR DETOX USE ONLY) PO ONE (10:00)
[2021-03-18] MEDS ORDERED: methaDONE HCL 10 MG TABLET (FOR DETOX USE ONLY) ONE (10:21)
[2021-03-18] MEDS: NICOTINE 14 MG/24 HOURS TOPICAL PATCH TD SCH (11:03)
[2021-03-18] MEDS: PRENATAL VITAMINS W/ FOLIC ACID TABLET (FP) PO SCH (11:03)
[2021-03-18] MEDS: diazePAM 5 MG TABLET PO PRN ×2 (11:04→22:50)
[2021-03-18] MEDS: THIAMINE HCL 100 MG TABLET (FP) PO SCH (22:50)
[2021-03-18] MEDS: SUVOREXANT 10 MG TABLET PO PRN (22:50)
[2021-03-19 09:24] VITALS: PULSE 98
[2021-03-19] MEDS ORDERED: methaDONE HCL 10 MG TABLET (FOR DETOX USE ONLY) PO ONE (10:00)
[2021-03-19] MEDS: NICOTINE 14 MG/24 HOURS TOPICAL PATCH TD SCH (10:36)
[2021-03-19] MEDS: PRENATAL VITAMINS W/ FOLIC ACID TABLET (FP) PO SCH (10:37)
[2021-03-19] MEDS: diazePAM 5 MG TABLET PO PRN (10:38)
[2021-03-19 13:32] VITALS: BP 107/73; TEMP 96.6
[2021-03-20] MEDS ORDERED: methaDONE HCL 10 MG TABLET (FOR DETOX USE ONLY) PO ONE (10:00)
[2021-03-21] MEDS ORDERED: methaDONE HCL 10 MG TABLET (FOR DETOX USE ONLY) PO ONE (10:00)
== END 2021-03-19 15:08 | disposition left against medical advice (07) | DRG 770 ==
LOC: YASAS 22:18 → Y3N 03-17 01:32
PROVIDERS: ADMIT Allergy & Immunology; ATTEND Allergy & Immunology
PROC: HZ2ZZZZ Detoxification Services for Substance Abuse Treatment (ICD-10-PCS; principal; 2021-03-17)
DX: F11.23 Opioid dependence with withdrawal (principal); F13.20 Sedative, hypnotic or anxiolytic dependence, uncomplicated; F14.20 Cocaine dependence, uncomplicated; F17.210 Nicotine dependence, cigarettes, uncomplicated; F19.282 Other psychoactive substance dependence with psychoactive substance-induced sleep disorder; F19.280 Other psychoactive substance dependence with psychoactive substance-induced anxiety disorder; Z86.16 Personal history of COVID-19
CPT/HCPCS: 36415; 80053; 85027; 86780; 87389; C9803; U0003; U0005

== ENCOUNTER 2021-04-02 14:43 | Inpatient (IN) | payer OTHER ==
[2021-04-02] MEDS ORDERED: cloNIDine HCL 0.1 MG TABLET PO PRN (18:43)
[2021-04-02] MEDS ORDERED: NICOTINE 10 MG CARTRIDGE (INHALER) IH PRN (18:43)
[2021-04-02] MEDS ORDERED: MAG HYDROX/AL HYDROX/SIMETH 30 ML UNIT-DOSE CUP PO PRN (18:43)
[2021-04-02] MEDS ORDERED: MAGNESIUM HYDROX 2400MG/30ML ORAL SUSPENSION 30 ML CUP PO PRN (18:43)
[2021-04-02] MEDS ORDERED: IBUPROFEN 400 MG TABLET (FP) PO PRN (18:43)
[2021-04-02] MEDS ORDERED: BISMUTH SUBSALICYLATE 524 MG/30 ML PO PRN (18:43)
[2021-04-02] MEDS ORDERED: LOPERAMIDE HCL 2 MG CAPSULE PO PRN (18:43)
[2021-04-02] MEDS ORDERED: MAGNESIUM CITRATE 300 ML BOTTLE PO PRN (18:43)
[2021-04-02] MEDS ORDERED: ONDANSETRON *ODT* 4 MG TABLET SL PRN (18:43)
[2021-04-02] MEDS ORDERED: ACETAMINOPHEN 325 MG TABLET (FP) PO PRN (18:43)
[2021-04-02] MEDS ORDERED: MENTHOL/PHENOL 1 EACH UD MM PRN (18:43)
[2021-04-02] MEDS ORDERED: methaDONE HCL 10 MG TABLET (FOR DETOX USE ONLY) PO ONE (20:30)
[2021-04-02] MEDS: hydrOXYzine PAMOATE 25 MG CAPSULE (FP) PO SCH (21:48)
[2021-04-02] MEDS: THIAMINE HCL 100 MG TABLET (FP) PO SCH (21:50)
[2021-04-02] MEDS: diazePAM 5 MG TABLET PO PRN (21:53)
[2021-04-02] MEDS ORDERED: MELATONIN 5 MG TABLETS PO SCH (22:00)
[2021-04-03] MEDS: diazePAM 5 MG TABLET PO PRN ×3 (02:09→15:03)
[2021-04-03] MEDS: ACETAMINOPHEN 325 MG TABLET (FP) PO PRN (02:10)
[2021-04-03] MEDS: hydrOXYzine PAMOATE 25 MG CAPSULE (FP) PO SCH ×5 (06:06→22:29)
[2021-04-03] MEDS ORDERED: methaDONE HCL 10 MG TABLET (FOR DETOX USE ONLY) ONE (09:44)
[2021-04-03] MEDS: METHOCARBAMOL 500 MG TABLET PO PRN (10:52)
[2021-04-03] MEDS: PRENATAL VITAMINS W/ FOLIC ACID TABLET (FP) PO SCH (10:52)
[2021-04-03 11:52] LABS: HEMATOCRIT 42.4 % (35.4-49); HEMOGLOBIN 13.7 GM/dL (11.7-16.9); MCH 27.6 pg (25.7-33.7); MCHC 32.3 g/dl (32.0-35.9); MEAN CELL VOLUME 85.5 fl (80-96); MEAN PLT VOLUME 9.9 fl (7.5-11.1); PLATELET COUNT 207 10^3/uL (134-434); RBC 4.96 M/mm3 (4.00-5.60); RDW 13.9 % (11.9-15.9); WHITE BLOOD COUNT 6.9 K/mm3 (4.0-10.0)
[2021-04-03 11:59] LABS: CALCIUM 9.1 mg/dL (8.5-10.1)
[2021-04-03 12:00] LABS: ALBUMIN 3.8 g/dl (3.4-5.0); BLOOD UREA NITROGEN 15.6 mg/dL (7-18)
[2021-04-03 12:03] LABS: CREATININE 0.8 mg/dL (0.55-1.3)
[2021-04-03 12:04] LABS: BILIRUBIN,TOTAL 0.3 mg/dL (0.2-1); TOT PROT 6.8 g/dl (6.4-8.2)
[2021-04-03] MEDS: MELATONIN 5 MG TABLETS PO SCH (22:28)
[2021-04-03] MEDS: THIAMINE HCL 100 MG TABLET (FP) PO SCH (22:29)
[2021-04-04] MEDS: diazePAM 5 MG TABLET PO PRN ×4 (01:01→15:33)
[2021-04-04] MEDS: ACETAMINOPHEN 325 MG TABLET (FP) PO PRN (01:01)
[2021-04-04] MEDS: hydrOXYzine PAMOATE 25 MG CAPSULE (FP) PO SCH ×5 (05:49→22:21)
[2021-04-04] MEDS ORDERED: methaDONE HCL 10 MG TABLET (FOR DETOX USE ONLY) PO ONE (10:00)
[2021-04-04] MEDS: PRENATAL VITAMINS W/ FOLIC ACID TABLET (FP) PO SCH (10:36)
[2021-04-04] MEDS: THIAMINE HCL 100 MG TABLET (FP) PO SCH (22:21)
[2021-04-04] MEDS: MELATONIN 5 MG TABLETS PO SCH (22:21)
[2021-04-05] MEDS: hydrOXYzine PAMOATE 25 MG CAPSULE (FP) PO SCH ×4 (05:40→18:14)
[2021-04-05] MEDS ORDERED: methaDONE HCL 10 MG TABLET (FOR DETOX USE ONLY) ONE (09:16)
[2021-04-05] MEDS: diazePAM 5 MG TABLET PO PRN ×2 (10:51→15:05)
[2021-04-05] MEDS: PRENATAL VITAMINS W/ FOLIC ACID TABLET (FP) PO SCH (10:53)
[2021-04-05] MEDS: METHOCARBAMOL 500 MG TABLET PO PRN (10:53)
[2021-04-05 19:32] VITALS: BP 119/60; PULSE 77; TEMP 98.2
[2021-04-06] MEDS ORDERED: methaDONE HCL 10 MG TABLET (FOR DETOX USE ONLY) PO ONE (10:00)
[2021-04-07 12:08] LABS: SARS-CoV-2 NAA Not Detected (Not Detected)
== END 2021-04-05 20:32 | disposition left against medical advice (07) | DRG 770 ==
LOC: YASAS 14:43 → Y6N 20:26
PROVIDERS: ADMIT Allergy & Immunology; ATTEND Allergy & Immunology
PROC: HZ2ZZZZ Detoxification Services for Substance Abuse Treatment (ICD-10-PCS; principal; 2021-04-02)
DX: F11.23 Opioid dependence with withdrawal (principal); F15.10 Other stimulant abuse, uncomplicated; F17.210 Nicotine dependence, cigarettes, uncomplicated; F41.9 Anxiety disorder, unspecified; Z86.16 Personal history of COVID-19
CPT/HCPCS: 36415; 80053; 85027; 86780; C9803; U0003; U0005

== ENCOUNTER 2021-04-21 14:54 | Inpatient (IN) | payer OTHER ==
[2021-04-21 15:45] VITALS: BMI 20.7
[2021-04-21] MEDS ORDERED: MAGNESIUM HYDROX 2400MG/30ML ORAL SUSPENSION 30 ML CUP PO PRN (17:49)
[2021-04-21] MEDS ORDERED: BISMUTH SUBSALICYLATE 524 MG/30 ML PO PRN (17:49)
[2021-04-21] MEDS ORDERED: MENTHOL/PHENOL 1 EACH UD MM PRN (17:49)
[2021-04-21] MEDS ORDERED: cloNIDine HCL 0.1 MG TABLET PO PRN (17:49)
[2021-04-21] MEDS ORDERED: MAG HYDROX/AL HYDROX/SIMETH 30 ML UNIT-DOSE CUP PO PRN (17:49)
[2021-04-21] MEDS ORDERED: methaDONE HCL 10 MG TABLET (FOR DETOX USE ONLY) PO ONE ×2 (17:49→20:15)
[2021-04-21] MEDS ORDERED: MAGNESIUM CITRATE 300 ML BOTTLE PO PRN (17:49)
[2021-04-21] MEDS ORDERED: IBUPROFEN 400 MG TABLET (FP) PO PRN (17:49)
[2021-04-21] MEDS ORDERED: ONDANSETRON *ODT* 4 MG TABLET SL PRN (17:49)
[2021-04-21] MEDS ORDERED: NICOTINE 10 MG CARTRIDGE (INHALER) IH PRN (17:49)
[2021-04-21] MEDS ORDERED: ACETAMINOPHEN 325 MG TABLET (FP) PO PRN ×2 (17:49)
[2021-04-21] MEDS ORDERED: LOPERAMIDE HCL 2 MG CAPSULE PO PRN (17:49)
[2021-04-21] MEDS: diazePAM 5 MG TABLET PO PRN (20:06)
[2021-04-21] MEDS: METHOCARBAMOL 500 MG TABLET PO PRN (20:07)
[2021-04-21] MEDS: hydrOXYzine PAMOATE 25 MG CAPSULE (FP) PO SCH ×2 (20:07→22:14)
[2021-04-21] MEDS: THIAMINE HCL 100 MG TABLET (FP) PO SCH (22:14)
[2021-04-21] MEDS: BACITRACIN 0.9 GM PACKET TP SCH (22:14)
[2021-04-21] MEDS: MELATONIN 5 MG TABLETS PO SCH (22:14)
[2021-04-21] MEDS: diazePAM 5 MG TABLET PO SCH (22:48)
[2021-04-22] MEDS: diazePAM 5 MG TABLET PO SCH ×4 (08:56→22:20)
[2021-04-22] MEDS: hydrOXYzine PAMOATE 25 MG CAPSULE (FP) PO SCH ×5 (08:56→22:20)
[2021-04-22] MEDS ORDERED: methaDONE HCL 10 MG TABLET (FOR DETOX USE ONLY) ONE (09:28)
[2021-04-22] MEDS: PRENATAL VITAMINS W/ FOLIC ACID TABLET (FP) PO SCH (10:12)
[2021-04-22] MEDS: BACITRACIN 0.9 GM PACKET TP SCH ×2 (10:12→22:19)
[2021-04-22] MEDS: METHOCARBAMOL 500 MG TABLET PO PRN ×2 (10:13→22:20)
[2021-04-22] MEDS ORDERED: FLU VACC QS2021-22(6MOS UP)/PF 60 MCG/0.5 ML SYRINGE IM ONE (12:00)
[2021-04-22 12:38] LABS: ALBUMIN 3.4 g/dl (3.4-5.0); CALCIUM 8.7 mg/dL (8.5-10.1)
[2021-04-22 12:41] LABS: CREATININE 0.9 mg/dL (0.55-1.3)
[2021-04-22 12:41] LABS: HEMATOCRIT 38.8 % (35.4-49); HEMOGLOBIN 13.2 GM/dL (11.7-16.9); MEAN CELL VOLUME 85.4 fl (80-96); MEAN PLT VOLUME 9.8 fl (7.5-11.1); PLATELET COUNT 195 10^3/uL (134-434); RBC 4.54 M/mm3 (4.00-5.60); RDW 13.3 % (11.9-15.9); WHITE BLOOD COUNT 5.6 K/mm3 (4.0-10.0)
[2021-04-22 12:43] LABS: TOT PROT 6.4 g/dl (6.4-8.2)
[2021-04-22] MEDS: MELATONIN 5 MG TABLETS PO SCH (22:20)
[2021-04-22] MEDS: THIAMINE HCL 100 MG TABLET (FP) PO SCH (22:20)
[2021-04-23] MEDS: diazePAM 5 MG TABLET PO SCH ×3 (06:21→22:33)
[2021-04-23] MEDS: hydrOXYzine PAMOATE 25 MG CAPSULE (FP) PO SCH ×5 (06:21→22:32)
[2021-04-23] MEDS ORDERED: methaDONE HCL 10 MG TABLET (FOR DETOX USE ONLY) PO ONE (10:00)
[2021-04-23] MEDS: BACITRACIN 0.9 GM PACKET TP SCH ×2 (10:45→22:33)
[2021-04-23] MEDS: PRENATAL VITAMINS W/ FOLIC ACID TABLET (FP) PO SCH (10:47)
[2021-04-23] MEDS: diazePAM 5 MG TABLET PO PRN ×2 (10:51→15:11)
[2021-04-23 12:03] LABS: HIV INTERPRETATION NEGATIVE (NEGATIVE)
[2021-04-23 19:11] LABS: SARS-CoV-2 NAA Not Detected (Not Detected)
[2021-04-23] MEDS: THIAMINE HCL 100 MG TABLET (FP) PO SCH (22:32)
[2021-04-23] MEDS: MELATONIN 5 MG TABLETS PO SCH (22:32)
[2021-04-24] MEDS ORDERED: diazePAM 5 MG TABLET PO SCH (06:00)
[2021-04-24] MEDS: hydrOXYzine PAMOATE 25 MG CAPSULE (FP) PO SCH ×2 (06:50→10:36)
[2021-04-24 09:05] VITALS: BP 109/52; PULSE 80; TEMP 98.3
[2021-04-24] MEDS ORDERED: methaDONE HCL 10 MG TABLET (FOR DETOX USE ONLY) ONE (09:22)
[2021-04-24] MEDS: BACITRACIN 0.9 GM PACKET TP SCH (10:36)
[2021-04-24] MEDS: PRENATAL VITAMINS W/ FOLIC ACID TABLET (FP) PO SCH (10:36)
[2021-04-25] MEDS ORDERED: diazePAM 5 MG TABLET PO ONE (06:00)
[2021-04-25] MEDS ORDERED: methaDONE HCL 10 MG TABLET (FOR DETOX USE ONLY) PO ONE (10:00)
== END 2021-04-24 12:21 | disposition left against medical advice (07) | DRG 770 ==
LOC: YASAS 14:54 → Y3N 18:23
PROVIDERS: ADMIT Allergy & Immunology; ATTEND Allergy & Immunology
PROC: HZ2ZZZZ Detoxification Services for Substance Abuse Treatment (ICD-10-PCS; principal; 2021-04-21)
DX: F11.23 Opioid dependence with withdrawal (principal); F13.20 Sedative, hypnotic or anxiolytic dependence, uncomplicated; F17.210 Nicotine dependence, cigarettes, uncomplicated; Z86.16 Personal history of COVID-19
CPT/HCPCS: 36415; 80053; 85027; 86780; 87389; C9803; U0003; U0005